=== PATIENT | female | born 1940 | race Caucasian/White ===

== ENCOUNTER → 2017-07-29 16:38 | Outpatient (CLI) | payer SELFPAY ==
[2017-07-29 17:25] LABS: Absolute Lymphocyte Count 2.01 X10^3/ul (0.83-4.51); Absolute Neutrophil Count 5.4 X10^3/uL (2.0-7.7); Basophil# 0.01 X10^3/uL; Basophil% 0.1 % (0-1); Eosinophil# 0.02 X10^3/uL; Eosinophils% 0.3 % (0-5); Hemoglobin 13.1 g/dl (12.0-15.0); Lymphocyte # 2.01 X10^3/ul (4.0); Lymphocyte % 25.3 % (19-41); Mean Corpuscular Hgb 30.4 pg (27.0-32.0); Mean Corpuscular Volume 95.1 fL (81-99); Monocyte# 0.51 X10^3/uL; Monocyte% 6.4 % (0-10); Neutrophil # 5.38 X10^3/uL (2.7-7.7); Neutrophil % 67.8 % (47-70); Platelet Count 283 K/mm3 (150-450); RBC Distribution Width CV 13.7 % (11.6-14.6); RBC Distribution Width SD 46.1 fl (35.1-43.9); Red Blood Count 4.31 M/mm3 (4.2-5.4); White Blood Count 7.9 K/mm3 (4.4-11.0)
[2017-07-29 17:49] LABS: POSITIVE COUNT NO; POSITIVE DIFFERENTIAL NO; POSITIVE MORPHOLOGY NO
[2017-07-29 18:52] LABS: ALB/GLOB Ratio 0.9 RATIO (0.9-2.4); AST(SGOT) 18 U/L (15-37); Alanine Aminotransfer ALT/SGPT 14 U/L (13-56); Albumin, Serum 3.7 g/dL (3.2-5.0); Alkaline Phosphatase 127 U/L (45-117); Anion Gap 9 (5-15); BUN 16 mg/dL (7-18); BUN/Creat Ratio 20.3 RATIO (10-20); Calcium,Total 9.5 mg/dL (8.5-10.1); Chloride 108 mmol/L (98-107); Creatinine, Serum 0.79 mg/dL (0.55-1.02); EST Glomerular Filtration Rate 75 mL/min (>60); Est Glom Filt Rate - Afr Amer 91 mL/min (>60); Globulin 4.1 g/dL (2.2-4.2); Glucose 73 mg/dL (74-106); Potassium 3.2 mmol/L (3.5-5.1); Protein, Total 7.8 g/dL (6.4-8.2); Sodium Level 141 mmol/L (136-145); Thyroid Stim Hormone (TSH) 0.98 uIU/mL (0.358-3.74)
[2017-07-30 08:44] LABS: Vitamin B12 241 pg/mL (211-911); Vitamin D,25 Hydroxy 50.7 ng/mL (29.95-100.01)
[2017-07-31 16:09] LABS: Folate, Hemolysate Test 403.8 ng/mL (Not Estab.); Folate, RBC (Hct) Test 38.4 % (34.0-46.6)
[2017-08-01 01:05] LABS: Rapid Plasmin Reagin (RPR) NONREACTIVE (NONREACTIVE)
[2017-08-01 12:13] LABS: Folates, RBC Test 1052 ng/mL (>498)
[2017-08-02 11:04] LABS: Methylmalonic Acid Bld 174 nmol/L (0-378)
== END ==
PROVIDERS: Family Provider Family Medicine Geriatric Medicine; PCP Family Medicine Geriatric Medicine; Visit Provider Family Medicine Geriatric Medicine
DX: E78.4 Other hyperlipidemia (principal); F05 Delirium due to known physiological condition; E53.8 Deficiency of other specified B group vitamins; E55.9 Vitamin D deficiency, unspecified
CPT/HCPCS: 36415; 80053; 82306; 82607; 82747; 83921; 84443; 85014; 85025; 86592

== ENCOUNTER → 2017-08-11 18:17 | Outpatient (CLI) | payer MEDICARE, SELFPAY | PROVIDERS: Family Provider Family Medicine Geriatric Medicine; PCP Family Medicine Geriatric Medicine; Visit Provider Family Medicine Geriatric Medicine | DX: N39.0 Urinary tract infection, site not specified (principal) | CPT/HCPCS: 87086; 87088 ==

== ENCOUNTER → 2018-01-12 15:08 | Outpatient (CLI) | payer MEDICARE, SELFPAY | PROVIDERS: Family Provider Family Medicine Geriatric Medicine; PCP Family Medicine Geriatric Medicine; Visit Provider Family Medicine Geriatric Medicine | DX: N39.0 Urinary tract infection, site not specified (principal) | CPT/HCPCS: 87086; 87088 ==

== ENCOUNTER → 2018-01-23 12:21 | Outpatient (CLI) | payer MEDICARE, SELFPAY | PROVIDERS: Family Provider Family Medicine Geriatric Medicine; PCP Family Medicine Geriatric Medicine; Visit Provider Family Medicine Geriatric Medicine | DX: N39.0 Urinary tract infection, site not specified (principal) | CPT/HCPCS: 87086; 87088 ==

== ENCOUNTER → 2018-02-25 16:19 | Outpatient (CLI) | payer MEDICARE, SELFPAY ==
[2018-02-25 17:10] LABS: Absolute Lymphocyte Count 2.68 X10^3/ul (0.83-4.51); Absolute Neutrophil Count 5.8 X10^3/uL (2.0-7.7); Basophil# 0.01 X10^3/uL; Basophil% 0.1 % (0-1); Eosinophil# 0.01 X10^3/uL; Eosinophils% 0.1 % (0-5); Hematocrit 41.7 % (37-47); Hemoglobin 13.5 g/dl (12.0-15.0); Lymphocyte # 2.68 X10^3/ul (4.0); Lymphocyte % 29.4 % (19-41); Mean Corp Hgb Conc 32.4 g/gl (32-36); Mean Corpuscular Hgb 33.8 pg (27.0-32.0); Mean Corpuscular Volume 104.3 fL (81-99); Mean Platelet Vol. 12.1 fl (6.2-12.0); Monocyte# 0.63 X10^3/uL; Monocyte% 6.9 % (0-10); Neutrophil # 5.77 X10^3/uL (2.7-7.7); Neutrophil % 63.3 % (47-70); Platelet Count 128 K/mm3 (150-450); RBC Distribution Width CV 13.9 % (11.6-14.6); RBC Distribution Width SD 52.4 fl (35.1-43.9); White Blood Count 9.1 K/mm3 (4.4-11.0)
[2018-02-25 17:33] LABS: POSITIVE COUNT NO; POSITIVE DIFFERENTIAL NO; POSITIVE MORPHOLOGY NO
[2018-02-25 17:54] LABS: Vitamin D,25 Hydroxy 63.3 ng/mL (29.95-100.01)
[2018-02-25 17:57] LABS: ALB/GLOB Ratio 0.7 RATIO (0.9-2.4); AST(SGOT) 20 U/L (15-37); Alanine Aminotransfer ALT/SGPT 21 U/L (13-56); Albumin, Serum 2.9 g/dL (3.2-5.0); Alkaline Phosphatase 83 U/L (45-117); Anion Gap 10 (5-15); BUN 23 mg/dL (7-18); BUN/Creat Ratio 31.2 RATIO (10-20); Calcium,Total 9.4 mg/dL (8.5-10.1); Chloride 106 mmol/L (98-107); Cholesterol 187 mg/dL (200); Creatinine, Serum 0.74 mg/dL (0.55-1.02); EST Glomerular Filtration Rate 81 mL/min (>60); Est Glom Filt Rate - Afr Amer 98 mL/min (>60); Globulin 3.9 g/dL (2.2-4.2); Glucose 88 mg/dL (74-106); High Density Lipoprotein 51 mg/dL; Potassium 3.7 mmol/L (3.5-5.1); Protein, Total 6.8 g/dL (6.4-8.2); Sodium Level 144 mmol/L (136-145); Thyroid Stim Hormone (TSH) 1.86 uIU/mL (0.358-3.74); Triglycerides 81 mg/dL; Very Low Density Lipoprotein 16 mg/dL (5-40)
--- OUTSIDE RECORDS SUMMARY | 2018-04-23 02:34 | XMS RPT_ITS ---
:1940 Author Organization OHIP Care Team Providers Name Role Phone ILSA CHRISTIANSON Attending Unavailable MEGHAN ILSA Primary Care Unavailable Senthil, Parker Chi Attending Unavailable Senhtil, Parker Chi Referring Unavailable Senthil, Parker Chi Primary Care Unavailable Senthil, Parker Chi Attending Unavailable Senthil, Parker Chi Primary Care Unavailable Senthil, Parker Chi Referring Unavailable Senthil, Parker Chi Attending Unavailable Senthil, Parker Chi Primary Care Unavailable Senthil, Parker Chi Attending Unavailable Senthil, Parker Chi Primary Care Unavailable Senthil, Parker Chi Attending Unavailable Senthil, Parker Chi Primary Care Unavailable Senthil, Parker Chi Attending Unavailable Senthil, Parker Chi Primary Care Unavailable PROBLEMS PROBLEMS DATE TYPE CONDITION / CODE ATTENDING STATUS SOURCE 08/12/2017 Unknown N39.0 - Urinary Senthil, Parker Chi Active [place] tract infection, Community site not Hospital specified / Repository N39.0(ICD-10) PROCEDURES PROCEDURES No Procedure Records FoundRESULTS RESULTS CBC W/DIFF, AUTOMATED Collected: 02/25/2018 Status: F Source: ALEJANDRO 4:20 PM [facility] REPOSITORY TYPE CODE TESTS RESULT OUT OF RANGE REFERENCE UNITS LAB L100.1000 4.4-11.0 K/mm3 Normal WBC 9.1 LAB L100.1200 4.2-5.4 M/mm3 Low RBC 4.00 LAB L100.1300 12.0-15.0 g/dl Normal HGB 13.5 LAB L100.1400 37-47 % Normal HCT 41.7 LAB L100.1500 81-99 fL High MCV 104.3 LAB L100.1600 27.0-32.0 pg High MCH 33.8 LAB L100.1700 32-36 g/gl Normal MCHC 32.4 LAB L100.1810 11.6-14.6 % Normal RDW CV 13.9 LAB L100.1820 35.1-43.9 fl High RDW SD 52.4 LAB L100.1900 150-450 K/mm3 Low PLT 128 LAB L100.2000 6.2-12.0 fl High MPV 12.1 LAB L100.2100 47-70 % Normal NEUT% 63.3 LAB L100.2200 19-41 % Normal LY% 29.4 LAB L100.2300 0-10 % Normal MONO% 6.9 LAB L100.2400 0-5 % Normal EO% 0.1 LAB L100.2500 0-1 % Normal BASO% 0.1 LAB L100.2550 0.0-0.9 % Normal IM GRAN % 0.200 Result Comment: IG% - Immature Granulocytes (promyelocytes, myelocytes and metamyelocytes) > 1% indicates that a LEFT SHIFT is Present. LAB L100.2620 2.0-7.7 X10 3/uL Normal Absolute Neut 5.8 LAB L100.2720 0.83-4.51 X10 3/ul Normal Absolute Lymph 2.68 Performed By: #### L100.0100 #### [facility] [place], [address] VITAMIN D,25 HYDROXY Collected: 02/25/2018 Status: F Source: ALEJANDRO 4:20 PM [facility] REPOSITORY TYPE CODE TESTS RESULT OUT OF RANGE REFERENCE UNITS LAB L506.1000 29.95-100.01 ng/mL Normal Vitamin D 63.3 25-OH Result Comment: Vitamin D 25(OH) Status Range Deficiency <20 ng/mL (50nmol/L) Insuffciency 20 - 30 ng/mL (50 - 75 nmol/L) Sufficiency 30 - 100 ng/mL (75 - 250 nmol/L) Toxicity >100 ng/mL (>250 nmol/L) Performed By: #### L506.1000 #### [facility] [address] [place] [place], [place], [address] COMPREHENSIVE METABOLIC Collected: 02/25/2018 Status: F Source: ALEJANDRO [facility] 4:20 PM [facility] REPOSITORY TYPE CODE TESTS RESULT OUT OF RANGE REFERENCE UNITS LAB L501.0100 74-106 mg/dL Normal GLU 88 Result Comment: Please note revised GLUCOSE reference range effective 2017. LAB L501.1000 7-18 mg/dL High BUN 23 LAB L501.1100 0.55-1.02 mg/dL Normal CREAT,SERUM 0.74 Result Comment: The validity of the calculated GFR AND GFRAA in patients over 70 years has not been determined. Clinical correlation is essential. LAB L501.1110 >60 mL/min Normal EST GFR 81 Result Comment: Non- GFR Calc LAB L501.1115 >60 mL/min Normal EST GFR - AA 98 Result Comment: GFR Calc LAB L501.1300 10-20 RATIO High BUN/CRE 31.2 LAB L501.1500 6.4-8.2 g/dL T Normal PROT 6.8 LAB L501.1800 3.2-5.0 g/dL Low ALB 2.9 LAB L501.1950 2.2-4.2 g/dL Normal GLOB 3.9 LAB L501.2000 0.9-2.4 RATIO Low A/G 0.7 LAB L501.2200 8.5-10.1 mg/dL CA Normal 9.4 LAB L501.4100 15-37 U/L Normal AST 20 LAB L501.4305 45-117 U/L Normal ALK P 83 LAB L501.4405 13-56 U/L Normal ALT 21 LAB L501.4600 0.20-1.00 mg/dL T Normal BILI 0.40 LAB L501.5300 136-145 mmol/L NA Normal 144 LAB L501.5600 3.5-5.1 mmol/L K Normal 3.7 LAB L501.5900 98-107 mmol/L CL Normal 106 LAB L501.6100 21.0-32.0 mmol/L Normal CO2 28.0 LAB L501.6200 5-15 Normal GAP 10 Performed By: #### L500.4050, L500.4100, L501.9520 #### [facility] [address] [place], [address] LIPID PROFILE Collected: 02/25/2018 Status: F Source: ROSEMEAD 4:20 PM [facility] REPOSITORY TYPE CODE TESTS RESULT OUT OF RANGE REFERENCE UNITS LAB L501.4900 200 mg/dL Normal CHOL 187 Result Comment: <200 mg/dL Desirable 200-240 mg/dL Borderline >240 mg/dL High Risk LAB L501.5000 mg/dL Normal TRIG 81 Result Comment: The drugs N-Acetylcysteine and Metamizole may falsely depress this assay. Serum Triglycerides Reference Interval Normal <150 mg/dL Borderline high 150 - 199 mg/dL High 200 - 499 mg/dL Very High > or = 500 mg/dL LAB L501.6400 mg/dL Normal HDL 51 Result Comment: The drugs N-Acetylcysteine and Metamizole may falsely depress this assay. Reference Range HDL <40 mg/dL Low HDL Cholesterol HDL >or= 60 mg/dL High HDL Cholesterol LAB L501.6500 0-130 mg/dL Normal LDL 120 LAB L501.6600 5-40 mg/dL Normal VLDL 16 Performed By: #### L500.4050, L500.4100, L501.9520 #### [facility] [address] [place], [address] THYROID STIM HORMONE Collected: 02/25/2018 Status: F Source: ROSEME[place] (TSH) 4:20 PM [facility] REPOSITORY TYPE CODE TESTS RESULT OUT OF RANGE REFERENCE UNITS LAB L501.9520 0.358-3.74 uIU/mL Normal TSH 1.86 Performed By: #### L500.4050, L500.4100, L501.9520 #### [facility] [address] [place], [address] Observed: 01/23/2018 Status: F Source: ALEJANDRO CULTURE, URINE 12:00 AM [facility] REPOSITORY Urine Culture ORGANISM 1: Mixed Gram Positive Organisms Dawson Count >100,000 MIX CULTURE Mixed contaminants. Submit a new specimen if indicated. Performed By: #### M100.0650 #### [facility] [address] [place], [address] Observed: 01/12/2018 Status: F Source: ALEJANDRO CULTURE, URINE 3:09 PM [facility] REPOSITORY Urine Culture Below infection level. 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, [address] Observed: 08/11/2017 Status: F Source: ALEJANDRO CULTURE, URINE 5:15 PM [facility] REPOSITORY Urine Culture ORGANISM 1: Mixed Gram Pos AND Gram Neg Org Dawson Count 50,000-80,000 MIX CULTURE Mixed contaminants. Submit a new specimen if indicated. Performed By: #### M100.0650 #### [facility] [address] [place], [address] CBC W/DIFF, AUTOMATED Collected: 07/29/2017 Status: F Source: ALEJANDRO 4:30 PM [facility] REPOSITORY TYPE CODE TESTS RESULT OUT OF RANGE REFERENCE UNITS LAB L100.1000 4.4-11.0 K/mm3 Normal WBC 7.9 LAB L100.1200 4.2-5.4 M/mm3 Normal RBC 4.31 LAB L100.1300 12.0-15.0 g/dl Normal HGB 13.1 LAB L100.1400 37-47 % Normal HCT 41.0 LAB L100.1500 81-99 fL Normal MCV 95.1 LAB L100.1600 27.0-32.0 pg Normal MCH 30.4 LAB L100.1700 32-36 g/gl Normal MCHC 32.0 LAB L100.1810 11.6-14.6 % Normal RDW CV 13.7 LAB L100.1820 35.1-43.9 fl High RDW SD 46.1 LAB L100.1900 150-450 K/mm3 Normal PLT 283 LAB L100.2000 6.2-12.0 fl Normal MPV 11.0 LAB L100.2100 47-70 % Normal NEUT% 67.8 LAB L100.2200 19-41 % Normal LY% 25.3 LAB L100.2300 0-10 % Normal MONO% 6.4 LAB L100.2400 0-5 % Normal EO% 0.3 LAB L100.2500 0-1 % Normal BASO% 0.1 LAB L100.2550 0.0-0.9 % Normal IM GRAN % 0.100 Result Comment: IG% - Immature Granulocytes (promyelocytes, myelocytes and metamyelocytes) > 1% indicates that a LEFT SHIFT is Present. LAB L100.2620 2.0-7.7 X10 3/uL Normal Absolute Neut 5.4 LAB L100.2720 0.83-4.51 X10 3/ul Normal Absolute Lymph 2.01 Performed By: #### L100.0100 #### [facility] [address] [place], [address] COMPREHENSIVE METABOLIC Collected: 07/29/2017 Status: F Source: [facility] 4:30 PM [facility] REPOSITORY TYPE CODE TESTS RESULT OUT OF RANGE REFERENCE UNITS LAB L501.0100 74-106 mg/dL Low GLU 73 Result Comment: Please note revised GLUCOSE reference range effective 2017. LAB L501.1000 7-18 mg/dL Normal BUN 16 LAB L501.1100 0.55-1.02 mg/dL Normal CREAT,SERUM 0.79 Result Comment: The validity of the calculated GFR AND GFRAA in patients over 70 years has not been determined. Clinical correlation is essential. LAB L501.1110 >60 mL/min Normal EST GFR 75 Result Comment: Non- GFR Calc LAB L501.1115 >60 mL/min Normal EST GFR - AA 91 Result Comment: GFR Calc LAB L501.1300 10-20 RATIO High BUN/CRE 20.3 LAB L501.1500 6.4-8.2 g/dL T Normal PROT 7.8 LAB L501.1800 3.2-5.0 g/dL Normal ALB 3.7 LAB L501.1950 2.2-4.2 g/dL Normal GLOB 4.1 LAB L501.2000 0.9-2.4 RATIO Normal A/G 0.9 LAB L501.2200 8.5-10.1 mg/dL CA Normal 9.5 LAB L501.4100 15-37 U/L Normal AST 18 LAB L501.4305 45-117 U/L High ALK P 127 LAB L501.4405 13-56 U/L Normal ALT 14 LAB L501.4600 0.20-1.00 mg/dL T Normal BILI 0.40 LAB L501.5300 136-145 mmol/L NA Normal 141 LAB L501.5600 3.5-5.1 mmol/L Low K 3.2 LAB L501.5900 98-107 mmol/L High CL 108 LAB L501.6100 21.0-32.0 mmol/L Normal CO2 24.0 LAB L501.6200 5-15 Normal GAP 9 Performed By: #### L500.4050, L501.9520 #### [facility] [address] [facility] [place], [address] THYROID STIM HORMONE Collected: 07/29/2017 Status: F Source: ALEJANDRO (TSH) 4:30 PM [facility] REPOSITORY TYPE CODE TESTS RESULT OUT OF RANGE REFERENCE UNITS LAB L501.9520 0.358-3.74 uIU/mL Normal TSH 0.98 Performed By: #### L500.4050, L501.9520 #### [facility] [address] [place], [address] VITAMIN B12 Collected: 07/29/2017 Status: F Source: ALEJANDRO 4:30 PM [facility] REPOSITORY TYPE CODE TESTS RESULT OUT OF RANGE REFERENCE UNITS LAB L503.0105 211-911 pg/mL Normal Vitamin B12 241 Performed By: #### L503.0105, L506.1000 #### [facility] [address] [place], [address] VITAMIN D,25 HYDROXY Collected: 07/29/2017 Status: F Source: ALEJANDRO 4:30 PM [facility] REPOSITORY TYPE CODE TESTS RESULT OUT OF RANGE REFERENCE UNITS LAB L506.1000 29.95-100.01 ng/mL Normal Vitamin D 50.7 25-OH Result Comment: Vitamin D 25(OH) Status Range Deficiency <20 ng/mL (50nmol/L) Insuffciency 20 - 30 ng/mL (50 - 75 nmol/L) Sufficiency 30 - 100 ng/mL (75 - 250 nmol/L) Toxicity >100 ng/mL (>250 nmol/L) Performed By: #### L503.0105, L506.1000 #### [facility] [address] [place], [address] RAPID PLASMIN REAGIN Collected: 07/29/2017 Status: F Source: ALEJANDRO (RPR) 4:30 PM [facility] REPOSITORY TYPE CODE TESTS RESULT OUT OF REFERENCE UNITS RANGE LAB L700.5000 NONREACTIVE NONREACTIVE Normal RPR Performed By: #### L700.5000 #### [facility] [address] [place], [place], [address] FOLATES, RBC Collected: 07/29/2017 Status: F Source: ALEJANDRO 4:30 PM [facility] REPOSITORY TYPE CODE TESTS RESULT OUT OF RANGE REFERENCE UNITS LAB L3100.1735 Not Estab. ng/mL Normal 403.8 FOL,HEMOLYSA TE LAB L3100.1740 34.0-46.6 % Normal 38.4 FOLR,HEMATOC RIT LAB L3100.1745 >498 ng/mL Normal FOLATE, 1052 RBC Result Comment: Performed at: - [facility] [address] [id number] [employer] Stabilizer Operator: Marshal Maldonado PhD, Phone: [phone] Performed By: #### L3100.1725 #### [facility] (refer to report for specific site) refer to report for address and phone number METHYLMALONIC ACID BLD Collected: 07/29/2017 Status: F Source: ALEJANDRO 4:30 PM [facility] REPOSITORY Order Comment: ADD ON TO YESTERDAYS TESTING PER TYPE CODE TESTS RESULT OUT OF RANGE REFERENCE UNITS LAB L7400.3000 0-378 nmol/L Normal METHYLM 174 [id number] Result Comment: This test was developed and its performance characteristics determined by [facility]. It has not been cleared or approved by the Food and Drug Administration. Performed at: [facility] [address] [id number] [employer] Stabil[employer] Operator: Roland Aquino MD, Phone: [phone] Performed By: #### L7400.3000 #### [facility] (refer to report for specific site) refer to report for address and phone number BD BONE DENSITY DEXA Observed: 07/28/2017 Status: F Source: [place] AXIAL SKELETON 2:00 PM [facility] REPOSITORY ORIGINAL BONE DENSITOMETRY CLINICAL STATEMENT: SCREENING COMPARISON: None T. Score Lumbar Spine L1-L4: -3.4 BMD (g/cm2) Lumbar Spine L1-L4: 0.678 T. Score Right Femoral Neck: -0.5 BMD (g/cm2) Right Femoral Neck: 0.79 T. Score Right Hip: -2.4 BMD (g/cm2) Right Hip: 0.653 CONCLUSION: The patient is considered osteoporotic based on the lumbar spine which has a T score of -3.4. *By the World Health Organization standards: Osteopenia is present when the bone mineral density is greater than 1 standard deviation (SD) but less than 2.5 SDs below a young normal sex matched populati on. Osteoporosis is present when the bone mineral density is equal to or greater than 2.5 SDs below a young normal sex matched population. Interpreted By: Farrukh Chavira MD Preliminary Report By: Farrukh Chavira MD Electronically Signed By: Farrukh Chavira MD Dictated Date: 07/28/2017 2:35:05 PM Prelim Date: 07/28/2017 2:35:05 PM Sign Date: 07/28/2017 2:41:57 PM ALLERGIES ALLERGIES No Allergies Records FoundENCOUNTERS ENCOUNTERS ADMIT/DISCHARGE ACCOUNT NUMBER ADMITTING ENCOUNTER LOCATION SOURCE CLASS 02/25/2018 [id number] [facility] ding:POLAB3 Repository 01/23/2018 [id number] [facility] ding:LABSPEC Repository 01/12/2018 [id number] Ambulatory [facility] ding:POLAB3 Repository 08/12/2017 [id number] [facility] ding:LAB.FUT Repository URE 08/11/2017 [id number] [facility] ding:LABSPEC Repository 07/29/2017 [id number] [facility] ding:LABSPEC Repository 07/28/2017/07/29/19 [id number] Ambulatory [address] ding:RAD Foundation Repository PAYERS PAYERS ENCOUNTER GUARANTOR PAYER SUBSCRIBER SOURCE 02/25/2018 GAURI Primary GAURI [id number] Insurance:HUMANA ZACHARIAHTDOB: Community [employer] PPOPolicy [id number] Number: [place]ository [place] [address]Hsz: [id number] Date:1895-19-24XI [address]OX () [address] [place] [phone]: 02/25/2018 Secondary NOT GIVENUNK [place] Insurance:SELF PAY [facility] Number: Effective Repository Date:2018-02-25 01/23/2018 GAURI Primary GAURI [place] [id number] Insurance:HUMANA ZACHARIAHTDOB: Community [employer] PPOPolicy [id number]. [facility], Number: Repository [place] [id number]: [id number] Date:1497-97-98ER BOX () [address] [place] [phone]: 01/23/2018 Secondary NOT GIVENUNK [place] Insurance:SELF PAY [facility] Number: Effective Repository Date:2018-01-23 01/12/2018 GAURI Primary GAURI [place] [id number] Insurance:HUMANA BRILLHARTDOB: Community [employer] PPOPolicy [id number]. [facility], Number: Repository [place] [address]Kjx: [id number] Date:8812-75-78QE BOX () [address] [place] [phone]: 01/12/2018 Secondary NOT GIVENUNK [place] Insurance:SELF PAY [facility] Number: Effective Repository Date:2018-01-12 08/12/2017 GAURI Primary GAURI Alejandro [id number] Insurance:HUMANA BRILLHARTDOB: Community [employer] PPOPolicy [id number]. Joseph's [facility], Number: Repository [place] [address]Pgf: [id number] [phone] Date:6001-75-61MF [address] () [address] [place] [phone]: 08/12/2017 Secondary NOT GIVENUNK [place] Insurance:SELF PAY [facility] Number: Effective Repository Date:2017-08-12 08/11/2017 GAURI Primary GAURI Alejandro [id number] Insurance:HUMANA BRPANDATDOB: Community [employer] PPOPolicy 1942[facility], Number: Repository [place] [id number]: [id number] [phone] Date:5515-46-57IO [address] () [address] [place] [phone]: 08/11/2017 Secondary NOT GIVENUNK [place] Insurance:SELF PAY [facility] Number: Effective Repository Date:2017-08-11 07/29/2017 GAURI Primary NOT GIVENUNK [place] [id number] Insurance:SELF PAY [facility], Number: Effective Repository [place] [address]Wqs: Date:2017-07-29 (HP) 07/28/2017 GAURI [facility] GAURI [facility]:HUMANA SANDEEP FRITZDOB: [facility] [id number] CHOICE MEDICAREPolicy [id number] Repository [address] Number: [address], [id number] [place] [address]Yzb: Date:2017-05-12 [place] [address]Iuf: [id number] () Name:OLAYINKA Crouch ()Tel: [phone], [place] [phone] () [phone]:
== END ==
PROVIDERS: Family Provider Family Medicine Geriatric Medicine; PCP Family Medicine Geriatric Medicine; Visit Provider Family Medicine Geriatric Medicine
DX: R53.83 Other fatigue (principal); I10 Essential (primary) hypertension; E55.9 Vitamin D deficiency, unspecified
CPT/HCPCS: 36415; 80053; 80061; 82306; 84443; 85025

== ENCOUNTER 2018-03-28 08:40 | Inpatient (IN) | payer MEDICARE, SELFPAY ==
[2018-03-28] VITALS (22 sets, daily range): BP systolic 74–189; BP diastolic 44–88; PULSE 68–115; RESP 14–30; TEMP 36.8–37.2; O2SAT 80–98; BMI 22.2; BMI 21.6
--- NOTE | 2018-03-28 08:52 | CT_ITS ---
STUDY: CT ABDOMEN AND PELVIS WITHOUT CONTRAST REASON FOR EXAM: Female, 78 years old. Cough/congestion/abd pain. Prev hysterectomy and lt hip replacement. RADIATION DOSAGE (If Supplied By Facility): CTDIvol = ( 9.0 ) mGy, DLP = ( 755.74 ) mGycm TECHNIQUE: Transaxial images were obtained from the dome of the diaphragm to the symphysis pubis without oral contrast, and without intravenous contrast. Sagittal and coronal images were reconstructed. Individualized dose optimization techniques were used for this CT. COMPARISON: None. FINDINGS: The visualized lung bases are unremarkable. The visualized portions of the heart are within normal limits. Normal liver. Normal gallbladder and extrahepatic biliary system. Normal spleen. Normal pancreas. Normal bilateral adrenal glands. Normal right kidney. There is a duplicated collecting system on the left There is a small hiatal hernia. Normal small intestine. Normal colon. There is non-visualization of the appendix. There is diffuse atherosclerotic calcification of the abdominal aorta, without a demonstrated aneurysm. Normal inferior vena cava. Normal retroperitoneum. Normal urinary bladder. Normal abdominal wall. There are diffuse degenerative changes of the visualized lumbar spine. CT/Abdomen/Pelvis without Cont IMPRESSION: No acute intra-abdominal or intrapelvic abnormality. Moderate aortoiliac atherosclerosis. Electronically Signed: Roseline Gaming MD at 10:39 EST Tel , Service support ,
--- NOTE | 2018-03-28 08:52 | CT_ITS ---
STUDY: CT CHEST WITHOUT CONTRAST REASON FOR EXAM: Female, 78 years old. Cough/congestion/abd pain. Prev hysterectomy and lt hip replacement. RADIATION DOSAGE (If Supplied By Facility): CTDIvol = ( 9.0 ) mGy, DLP = ( 755.74 ) mGycm TECHNIQUE: Transaxial imaging was performed without the administration of intravenous contrast material. Individualized dose optimization techniques were used for this CT. COMPARISON: None. FINDINGS: There are mild emphysematous changes of the lungs with emphysematous blebs. There is no demonstrated pleural abnormality. Normal heart and pericardium. There are calcifications of the coronary arteries. Normal mediastinum. Normal hilar regions. There is atherosclerotic calcification of the aortic arch with tortuosity and elongation of the aortic arch and descending thoracic aorta. There are multi-level degenerative changes of the thoracic spine. CT/Chest without Contrast IMPRESSION: No acute intrathoracic abnormality. Electronically Signed: Roseline Gaming MD at 11:26 EST Tel , Service support ,
--- NOTE | 2018-03-28 08:55 | ED.DCSUM_ITS ---
- ER Visit Summary Date of Service: 03/28/18 Chief Complaint: Cough, congestion History of Present Illness: The patient is a 78 F who presents with cough and congestion. Family states that it just started this morning. They saw her last night and she had a slight cough but it is increased today. She has had increased sputum production. She feels like she cannot swallow it. She took a generic thing this morning but the family did not know what it was. They did not check her temperature. She has a history of dementia so history from her is limited. Physical Examination: Vital signs reviewed. Patient is moaning has a lot of upper airway secretions. She is not choking. HEENT exam is otherwise unremarkable. Heart is regular rate and rhythm. Lungs are clear bilaterally. Abdomen is soft with left lower quadrant tenderness. There is voluntary guarding. Skin exam is normal. She is alert to self only which according to family is baseline. Her strength and sensation is equal otherwise. Test Results: EKG is sinus rhythm with a rate of 84. Nonspecific ST and T wave changes noted. White blood cell count 12.4. Lactate 1.8. Troponin normal. CT of the chest abdomen and pelvis reveals nothing acute Emergency Department Course and Treatment: The patient's pulse ox was normal on room air. After her imaging studies was performed, the patient had an episode of hypotension and low pulse ox. Her pulse ox was in the 80s despite being on nasal cannula oxygen. She was placed on a nonrebreather and her pulse ox came up to the 90s. Her blood pressure went to 70s over 30s and after some IV fluids it came up to hypertensive in the 170 systolic range. She had a lot of upper airway secretions and my concern is that she may have aspirated and it caused a vagal reaction. I will start her on Unasyn. And she will be admitted to the hospital Treatment Plan: [] Disposition: Admit Impression: Aspiration pneumonia This note was generated with [employer] dictation software. It may contain incorrect words, spelling, and punctuation that were not noted in review of the chart prior to signing ED Disposition - Plan for ED Patient: Chief Complaint: Cough Referrals: Parker Ndiaye Chi, MD [Primary Care Provider] -
[2018-03-28] MEDS: Albuterol 2.5 MG/3 ML VIAL.NEB. INHALATION (09:26)
--- NOTE | 2018-03-28 09:26 | ED.RN ---
PT NOT FOLLOWING COMMANDS OR ANSWERING QUESTIONS.
[2018-03-28 09:27] LABS: Basophil# 0.01 X10^3/uL; Basophil% 0.1 % (0-1); Eosinophil# 0.01 X10^3/uL; Eosinophils% 0.1 % (0-5); Hematocrit 42.4 % (37-47); Hemoglobin 13.8 g/dl (12.0-15.0); Lymphocyte % 12.1 % (19-41); Mean Corp Hgb Conc 32.5 g/gl (32-36); Mean Corpuscular Hgb 34.6 pg (27.0-32.0); Mean Corpuscular Volume 106.3 fL (81-99); Monocyte# 0.84 X10^3/uL; Monocyte% 6.8 % (0-10); Neutrophil # 10.02 X10^3/uL (2.7-7.7); Neutrophil % 80.6 % (47-70); Platelet Count 179 K/mm3 (150-450); RBC Distribution Width CV 14.9 % (11.6-14.6); RBC Distribution Width SD 57.9 fl (35.1-43.9); Red Blood Count 3.99 M/mm3 (4.2-5.4); White Blood Count 12.4 K/mm3 (4.4-11.0)
[2018-03-28 09:29] LABS: POSITIVE COUNT NO; POSITIVE DIFFERENTIAL NO; POSITIVE MORPHOLOGY NO
[2018-03-28 09:52] LABS: ALB/GLOB Ratio 0.8 RATIO (0.9-2.4); AST(SGOT) 16 U/L (15-37); Alanine Aminotransfer ALT/SGPT 12 U/L (13-56); Albumin, Serum 3.1 g/dL (3.2-5.0); Alkaline Phosphatase 69 U/L (45-117); Anion Gap 8 (5-15); BUN 17 mg/dL (7-18); BUN/Creat Ratio 23.8 RATIO (10-20); Calcium,Total 8.9 mg/dL (8.5-10.1); Chloride 105 mmol/L (98-107); Creatinine, Serum 0.72 mg/dL (0.55-1.02); EST Glomerular Filtration Rate 84 mL/min (>60); Est Glom Filt Rate - Afr Amer 102 mL/min (>60); Estimated Creatinine Clearance 34.38 ml/min; Globulin 3.9 g/dL (2.2-4.2); Glucose 109 mg/dL (74-106); Potassium 4.1 mmol/L (3.5-5.1); Sodium Level 140 mmol/L (136-145)
[2018-03-28] MEDS: 0.9% Normal Saline 1,000 ML 999 ML IV (11:20)
--- NOTE | 2018-03-28 11:29 | EKG12_ITS ---
Test Reason : SOB Blood Pressure : / mmHG Vent. Rate : 084 BPM Atrial Rate : 084 BPM P-R Int : 146 ms QRS Dur : 076 ms QT Int : 402 ms P-R-T Axes : 073 -14 039 degrees QTc Int : 475 ms Normal sinus rhythm Septal infarct , age undetermined Abnormal ECG Confirmed by COURTNEY FLORES, CHRIS ([id number]), video editor YEVGENIY HIDALGO ([id number]) on 03/30/2018 12:36:35 PM Referred By: FRANCO Confirmed By:CHRIS VALDEZ MD
--- NOTE | 2018-03-28 11:35 | ED.RN ---
1115 - MD NOTIFIED OF VITALS. MD AT BEDSIDE.
[2018-03-28 11:55] LABS: Allen Test POS; Base Excess -1 mmol/L (-2 to +2); Bicarbonate 24.3 mmol/L (22-26); Blood Gas Specimen Type ART; O2 Delivery Device NRB Mask; PO2 211 mmHG (75-100); SITE L Radial; SO2 100 % (95-99); Time Given 1145; Total Carbon Dioxide 26 mmol/L; pCO2 45.3 mmHg (35-45); pH 7.34 (7.35-7.45)
[2018-03-28] MEDS: Ipratropium/Albuterol Sulfate 3 ML AMPUL.NEB INHALATION ×2 (12:08→19:25)
[2018-03-28 12:15] LABS: Lactic Acid 1.8 mmol/L (0.4-2.0)
--- NOTE | 2018-03-28 14:46 | PCM.HP.STD ---
Problem List (1) Acute respiratory failure with hypoxia Status: Acute (2) Aspiration pneumonia Status: Acute (3) Sepsis Status: Acute History of Present Illness Date of Admission: 03/28/18 Chief Complaint: shortness of breath. The patient is a 78 year old F presents with complaints of coughing up yellow phlegm and just not herself. Patient was brought to the emergency room condition. Patient was initially slightly tachypneic with a respiratory rate of 24 but was 96% on room air. Patient underwent a chest CT as well as abdominal CT that were unremarkable. Some point after the CAT scans, patient was coughing and then became acutely hypoxic dropping down to 80% on 6 L nasal cannula. Patient was changed over to Venturi mask and then a nonrebreather her sats have remained stable. Patient is confused and just grunting so was unable to provide any history. History is obtained through the emergency room physician as well as the patient's son caregiver, who are at bedside. They state the patient at baseline is confused but has good days and bad days. Based on the patient's bad days involve her running off and talking about her though he were alive when he has been . Patient also has times where she does not recognize her own sons. [] Past Medical History Medical History: Medical History (Last Updated 03/28/18 @ 14:50 by Que Wallace DO) Depression F32.9 Allergies No Known Allergies Allergy (Verified 03/28/18 08:41) Home Medications: Ambulatory Orders Medication Instructions Recorded Divalproex Sodium [Depakote ER] 1,000 mg PO QHS 03/28/18 Divalproex Sodium [Depakote ER] 500 mg PO BREAKFAST 03/28/18 Doxepin HCl 25 mg PO PRN PRN 03/28/18 Nuedexta 1 tab PO DAILY 03/28/18 Potassium Chl Soln 1 dose PO DAILY 03/28/18 Valproic Acid (As Sodium Salt) 10 ml PO DAILY 03/28/18 [Valproic Acid] Vilazodone Hydrochloride [Viibryd] 1 tab PO DAILY 03/28/18 Psychiatric History: Depression Lives: Alone, - Smoking Status: Never smoker Review of Systems Comment: Unable to obtain review of systems nor family history for the patient given her confusion. VTE Information - Inpt Only VTE Present on Admission: No VTE Pharm Prophylaxis ordered?: Yes Patient Problems: Active and Suspected Problems Acute respiratory failure with hypoxia (Acute) Aspiration pneumonia (Acute) Sepsis (Acute) - Physical Exam General: Confused, - - grunting. afebrile. HEENT: Atraumatic, Normocephalic Oral: Moist Mucosa, No Gingival or Mucosal Lesions/ Ulcerations Neck: No Nodes, Thyroid Normal Size and Texture Lungs: Diminished, - - coarse breath sounds bilaterally. Cardiovascular: Regular rate, Regular Rhythm, Normal S1, Normal S2, No murmurs Abdomen: Bowel Sounds Present, Soft, Non-Distended, No Hepato-splenomegaly, - - Slice my hand away during so abdominal examination limited. Extremities: No edema, No Calf Tenderness Skin: No rashes, No breakdown Musculoskeletal: No Tenderness to Palpation of Joints or Extremities, No Muscle Wasting Neurological: Coordination normal, - - no clonus Psych/Mental Status: Agitated, Anxious Vital Signs Temp Pulse Resp BP Pulse Ox 37.1 C 100 24 H 155/79 H 98 03/28/18 14:10 03/28/18 14:10 03/28/18 14:10 03/28/18 14:10 03/28/18 14:10 Oxygen Flow Rate (L/min) 12 Oxygen Delivery Method Non-Rebreather Weight: 51.71 kg Body Mass Index (BMI) 22.2 Laboratory Tests Past 24 Hrs 03/28/18 03/28/18 03/28/18 09:10 09:10 09:10 WBC 12.4 H RBC 3.99 L Hgb 13.8 Hct 42.4 MCV 106.3 H MCH 34.6 H MCHC 32.5 RDW 14.9 H RDW Differential 57.9 H Plt Count 179 MPV 11.0 Immature Gran % (Auto) 0.300 Neut % (Auto) 80.6 H Lymph % (Auto) 12.1 L Mccreary % (Auto) 6.8 Eos % (Auto) 0.1 Baso % (Auto) 0.1 Absolute Neuts (auto) 10.0 H Absolute Lymphs (auto) 1.50 Total Counted Not Reportable Specimen Type Sample Site pH Bicarbonate Actual POC Total CO2 Base Excess O2 Saturation ABG pCO2 ABG pO2 Rik Test O2 Delivery Device Liter Flow Blood Gas Notified Whom Blood Gas Notified Time Sodium 140 Potassium 4.1 Chloride 105 Carbon Dioxide 27.0 Anion Gap 8 BUN 17 Creatinine 0.72 Estim Creat Clear Calc 34.38 Est GFR (MDRD) Af Amer 102 Est GFR (MDRD) Non-Af 84 BUN/Creatinine Ratio 23.8 H Glucose 109 H Lactic Acid Calcium 8.9 Total Bilirubin 0.60 AST 16 ALT 12 L Alkaline Phosphatase 69 Troponin I < 0.015 Total Protein 7.0 Albumin 3.1 L Globulin 3.9 Albumin/Globulin Ratio 0.8 L 03/28/18 03/28/18 09:10 11:49 WBC RBC Hgb Hct MCV MCH MCHC RDW RDW Differential Plt Count MPV Immature Gran % (Auto) Neut % (Auto) Lymph % (Auto) Mccreary % (Auto) Eos % (Auto) Baso % (Auto) Absolute Neuts (auto) Absolute Lymphs (auto) Total Counted Specimen Type ART Sample Site L Radial pH 7.34 L Bicarbonate Actual 24.3 POC Total CO2 26 Base Excess -1 O2 Saturation 100 H ABG pCO2 45.3 H ABG pO2 211 H Rik Test POS O2 Delivery Device NRB Mask Liter Flow 15.0 Blood Gas Notified Whom ED MD Blood Gas Notified Time 1145 Sodium Potassium Chloride Carbon Dioxide Anion Gap BUN Creatinine Estim Creat Clear Calc Est GFR (MDRD) Af Amer Est GFR (MDRD) Non-Af BUN/Creatinine Ratio Glucose Lactic Acid 1.8 Calcium Total Bilirubin AST ALT Alkaline Phosphatase Troponin I Total Protein Albumin Globulin Albumin/Globulin Ratio Assessment/Plan All Active Problems Acute respiratory failure with hypoxia (Acute) Aspiration pneumonia (Acute) Sepsis (Acute) 1. Acute hypoxic respiratory failure Patient's pulse ox dropped down to 80% at one point and the patient was notably tachypneic which she still remains to be. Feel the etiology is likely a recent pneumonia this patient was fine and then was coughing up some phlegm and then had suctioned some phlegm. Plan is for the patient to be on pulmonary toilet with Unasyn and bronchodilators. 2. Suspected aspiration pneumonia Unasyn Treatment as above Check urinary antigens for strep to coccus and Legionella Speech therapy to evaluate and treat. Patient will be n.p.o. until further cleared by speech therapy 3. Sepsis Not initially present on admission but did develop subsequently when patient had the aspiration event Supportive management Follow-up cultures 4. Suspected dementia Patient diagnosed with depression and is on medications for depression plus pseudobulbar affect Patient has had some extent of workup per the family But given patient's waxing and waning levels of consciousness and not recognizing immediate family members is concerning for dementia Recommend outpatient geriatric evaluation for dementia 5. DVT prophylaxis with Lovenox 6. Advanced care planning: Discussed with patient's son, is not the power of real estate attorney, and states that there is been no formal discussion about CODE STATUS. I did discuss with him briefly about DNR CCA and CPR, intubation and PEG tube's. Code Visit Inpatient E&M: [id number] Init Hosp L3
--- NOTE | 2018-03-28 14:50 | HP.PCM_ITS ---
Problem List (1) Acute respiratory failure with hypoxia Status: Acute (2) Aspiration pneumonia Status: Acute (3) Sepsis Status: Acute History of Present Illness Date of Admission: 03/28/18 Chief Complaint: shortness of breath. The patient is a 78 year old F presents with complaints of coughing up yellow phlegm and just not herself. Patient was brought to the emergency room condition. Patient was initially slightly tachypneic with a respiratory rate of 24 but was 96% on room air. Patient underwent a chest CT as well as abdominal CT that were unremarkable. Some point after the CAT scans, patient was coughing and then became acutely hypoxic dropping down to 80% on 6 L nasal cannula. Patient was changed over to Venturi mask and then a nonrebreather her sats have remained stable. Patient is confused and just grunting so was unable to provide any history. History is obtained through the emergency room physician as well as the patient's son caregiver, who are at bedside. They state the patient at baseline is confused but has good days and bad days. Based on the patient's bad days involve her running off and talking about her though he were alive when he has been . Patient also has times where she does not recognize her own sons. [] Past Medical History Medical History: Medical History (Last Updated 03/28/18 @ 14:50 by Que Wallace DO) Depression F32.9 Allergies No Known Allergies Allergy (Verified 03/28/18 08:41) Home Medications: Ambulatory Orders Medication Instructions Recorded Divalproex Sodium [Depakote ER] 1,000 mg PO QHS 03/28/18 Divalproex Sodium [Depakote ER] 500 mg PO BREAKFAST 03/28/18 Doxepin HCl 25 mg PO PRN PRN 03/28/18 Nuedexta 1 tab PO DAILY 03/28/18 Potassium Chl Soln 1 dose PO DAILY 03/28/18 Valproic Acid (As Sodium Salt) 10 ml PO DAILY 03/28/18 [Valproic Acid] Vilazodone Hydrochloride [Viibryd] 1 tab PO DAILY 03/28/18 Psychiatric History: Depression Lives: Alone, - Smoking Status: Never smoker Review of Systems Comment: Unable to obtain review of systems nor family history for the patient given her confusion. VTE Information - Inpt Only VTE Present on Admission: No VTE Pharm Prophylaxis ordered?: Yes Patient Problems: Active and Suspected Problems Acute respiratory failure with hypoxia (Acute) Aspiration pneumonia (Acute) Sepsis (Acute) - Physical Exam General: Confused, - - grunting. afebrile. HEENT: Atraumatic, Normocephalic Oral: Moist Mucosa, No Gingival or Mucosal Lesions/ Ulcerations Neck: No Nodes, Thyroid Normal Size and Texture Lungs: Diminished, - - coarse breath sounds bilaterally. Cardiovascular: Regular rate, Regular Rhythm, Normal S1, Normal S2, No murmurs Abdomen: Bowel Sounds Present, Soft, Non-Distended, No Hepato-splenomegaly, - - Slice my hand away during so abdominal examination limited. Extremities: No edema, No Calf Tenderness Skin: No rashes, No breakdown Musculoskeletal: No Tenderness to Palpation of Joints or Extremities, No Muscle Wasting Neurological: Coordination normal, - - no clonus Psych/Mental Status: Agitated, Anxious Vital Signs Temp Pulse Resp BP Pulse Ox 37.1 C 100 24 H 155/79 H 98 03/28/18 14:10 03/28/18 14:10 03/28/18 14:10 03/28/18 14:10 03/28/18 14:10 Oxygen Flow Rate (L/min) 12 Oxygen Delivery Method Non-Rebreather Weight: 51.71 kg Body Mass Index (BMI) 22.2 Laboratory Tests Past 24 Hrs 03/28/18 03/28/18 03/28/18 09:10 09:10 09:10 WBC 12.4 H RBC 3.99 L Hgb 13.8 Hct 42.4 MCV 106.3 H MCH 34.6 H MCHC 32.5 RDW 14.9 H RDW Differential 57.9 H Plt Count 179 MPV 11.0 Immature Gran % (Auto) 0.300 Neut % (Auto) 80.6 H Lymph % (Auto) 12.1 L [place] % (Auto) 6.8 Eos % (Auto) 0.1 Baso % (Auto) 0.1 Absolute Neuts (auto) 10.0 H Absolute Lymphs (auto) 1.50 Total Counted Not Reportable Specimen Type Sample Site pH Bicarbonate Actual POC Total CO2 Base Excess O2 Saturation ABG pCO2 ABG pO2 Rik Test O2 Delivery Device Liter Flow Blood Gas Notified Whom Blood Gas Notified Time Sodium 140 Potassium 4.1 Chloride 105 Carbon Dioxide 27.0 Anion Gap 8 BUN 17 Creatinine 0.72 Estim Creat Clear Calc 34.38 Est GFR (MDRD) Af Amer 102 Est GFR (MDRD) Non-Af 84 BUN/Creatinine Ratio 23.8 H Glucose 109 H Lactic Acid Calcium 8.9 Total Bilirubin 0.60 AST 16 ALT 12 L Alkaline Phosphatase 69 Troponin I < 0.015 Total Protein 7.0 Albumin 3.1 L Globulin 3.9 Albumin/Globulin Ratio 0.8 L 03/28/18 03/28/18 09:10 11:49 WBC RBC Hgb Hct MCV MCH MCHC RDW RDW Differential Plt Count MPV Immature Gran % (Auto) Neut % (Auto) Lymph % (Auto) Jessamine % (Auto) Eos % (Auto) Baso % (Auto) Absolute Neuts (auto) Absolute Lymphs (auto) Total Counted Specimen Type ART Sample Site L Radial pH 7.34 L Bicarbonate Actual 24.3 POC Total CO2 26 Base Excess -1 O2 Saturation 100 H ABG pCO2 45.3 H ABG pO2 211 H Rik Test POS O2 Delivery Device NRB Mask Liter Flow 15.0 Blood Gas Notified Whom ED MD Blood Gas Notified Time 1145 Sodium Potassium Chloride Carbon Dioxide Anion Gap BUN Creatinine Estim Creat Clear Calc Est GFR (MDRD) Af Amer Est GFR (MDRD) Non-Af BUN/Creatinine Ratio Glucose Lactic Acid 1.8 Calcium Total Bilirubin AST ALT Alkaline Phosphatase Troponin I Total Protein Albumin Globulin Albumin/Globulin Ratio Assessment/Plan All Active Problems Acute respiratory failure with hypoxia (Acute) Aspiration pneumonia (Acute) Sepsis (Acute) 1. Acute hypoxic respiratory failure * Patient's pulse ox dropped down to 80% at one point and the patient was notably tachypneic which she still remains to be. * Feel the etiology is likely a recent pneumonia this patient was fine and then was coughing up some phlegm and then had suctioned some phlegm. * Plan is for the patient to be on pulmonary toilet with Unasyn and bronchodilators. 2. Suspected aspiration pneumonia * Unasyn * Treatment as above * Check urinary antigens for strep to coccus and Legionella * Speech therapy to evaluate and treat. Patient will be n.p.o. until further cleared by speech therapy 3. Sepsis * Not initially present on admission but did develop subsequently when patient had the aspiration event * Supportive management * Follow-up cultures 4. Suspected dementia * Patient diagnosed with depression and is on medications for depression plus pseudobulbar affect * Patient has had some extent of workup per the family * But given patient's waxing and waning levels of consciousness and not recognizing immediate family members is concerning for dementia * Recommend outpatient geriatric evaluation for dementia 5. DVT prophylaxis with Lovenox 6. Advanced care planning: Discussed with patient's son, is not the power of immigration attorney, and states that there is been no formal discussion about CODE STATUS. I did discuss with him briefly about DNR CCA and CPR, intubation and PEG tube's . Code Visit Inpatient E&M: [id number] Init Hosp L3
--- NOTE | 2018-03-28 15:24 | RAD_ITS ---
STUDY: X-RAY CHEST REASON FOR EXAM: Female, 78 years old. Shortness of breath TECHNIQUE: PA and lateral views of the chest. COMPARISON: 03/28/2018 9:[address] chest FINDINGS: There is a patchy opacity in the right lung base. This is new since the prior study. There is no demonstrated pleural abnormality. Normal size heart. Normal mediastinum and jose. Normal visualized pulmonary arteries. There is atherosclerotic tortuosity of the aortic arch and descending thoracic aorta. Normal visualized thoracic spine. Normal visualized ribs, clavicles, and shoulders. There is no demonstrated abnormality of the visualized soft tissue structures of the upper abdomen. RAD/Chest PA and Lateral IMPRESSION: Patchy right lung base infiltrate new since prior study given the rapid onset since March 28, 2018 9:59 AM consider possible aspiration pneumonia and/or atelectasis or mucus plugging. N.B. : The above information has been verbally conveyed by Jennifer Aly MD to Lynette Huerta;[phone], [place], on 03/29/2018 08:47:11 (ET). Electronically Signed: Jennifer Aly MD at 8:40 EST Tel , Service support ,
[2018-03-28] MEDS: 0.9% Normal Saline 1,000 ML 75 ML IV (16:42)
[2018-03-28] MEDS: 0.9% NaCl Peripheral Flush Adult/Peds IV (16:42)
[2018-03-29] VITALS (19 sets, daily range): BP systolic 123–152; BP diastolic 52–90; PULSE 82–125; RESP 18–30; TEMP 36.2–37.2; O2SAT 85–99
[2018-03-29] MEDS: Haloperidol Lactate 5 MG/ML Vial 1 MG IM (03:05)
--- NOTE | 2018-03-29 03:16 | NURSING ---
Called lab to find out why urine culture & urinalysis show as being cancelled. They checked into it and found that the orders had been cancelled by accident. They found the culture and will run it.
[2018-03-29 03:43] LABS: Color, Urine Yellow (Yellow); Glucose, Dipstick NEGATIVE (Normal); Ketone-Dipstick 5 mg/dl (Negative); Protein-Dipstick Negative (Negative); Specific Gravity, Urine 1.015 (1.002-1.030); Urine Bilirubin Dipstick Negative (Negative); Urine Clarity Clear (Clear); Urine Urobilinogen Normal (Normal)
[2018-03-29 03:44] LABS: Leukocyte Esterase-Dipstick Negative /ul (Negative); Nitrite-Dipstick Negative (Negative); Occult Blood-Urine 10 /ul (Negative)
[2018-03-29] MEDS: 0.9% Normal Saline 1,000 ML 75 ML IV ×2 (04:54→19:05)
[2018-03-29 06:42] LABS: Absolute Lymphocyte Count 0.95 X10^3/ul (0.83-4.51); Absolute Neutrophil Count 8.1 X10^3/uL (2.0-7.7); Basophil# 0.01 X10^3/uL; Basophil% 0.1 % (0-1); Hematocrit 36.8 % (37-47); Hemoglobin 11.6 g/dl (12.0-15.0); Lymphocyte # 0.95 X10^3/ul (4.0); Lymphocyte % 9.7 % (19-41); Mean Corp Hgb Conc 31.5 g/gl (32-36); Mean Corpuscular Hgb 33.7 pg (27.0-32.0); Mean Platelet Vol. 12.1 fl (6.2-12.0); Monocyte# 0.73 X10^3/uL; Monocyte% 7.5 % (0-10); Neutrophil # 8.05 X10^3/uL (2.7-7.7); Neutrophil % 82.3 % (47-70); Platelet Count 95 K/mm3 (150-450); RBC Distribution Width CV 15.5 % (11.6-14.6); RBC Distribution Width SD 59.4 fl (35.1-43.9); Red Blood Count 3.44 M/mm3 (4.2-5.4); White Blood Count 9.8 K/mm3 (4.4-11.0)
[2018-03-29 06:48] LABS: POSITIVE COUNT NO; POSITIVE DIFFERENTIAL NO; POSITIVE MORPHOLOGY NO
[2018-03-29] MEDS: Ipratropium/Albuterol Sulfate 3 ML AMPUL.NEB INHALATION ×3 (07:07→17:53)
[2018-03-29 07:08] LABS: Anion Gap 6 (5-15); BUN 22 mg/dL (7-18); BUN/Creat Ratio 31.8 RATIO (10-20); Calcium,Total 7.3 mg/dL (8.5-10.1); Chloride 110 mmol/L (98-107); Creatinine, Serum 0.69 mg/dL (0.55-1.02); EST Glomerular Filtration Rate 88 mL/min (>60); Est Glom Filt Rate - Afr Amer 106 mL/min (>60); Estimated Creatinine Clearance 37.78 ml/min; Glucose 84 mg/dL (74-106); Potassium 4.3 mmol/L (3.5-5.1); Sodium Level 140 mmol/L (136-145)
--- NOTE | 2018-03-29 08:42 | CPS ---
PEP not instructed, patient sleeping at this time.
[2018-03-29] MEDS: Enoxaparin 40 MG/0.4 ML Syringe SC (09:58)
--- NOTE | 2018-03-29 10:54 | EKG12_ITS ---
Test Reason : RHYTHM CHANGE Blood Pressure : / mmHG Vent. Rate : 111 BPM Atrial Rate : 111 BPM P-R Int : 170 ms QRS Dur : 076 ms QT Int : 348 ms P-R-T Axes : 081 -32 047 degrees QTc Int : 473 ms Sinus tachycardia Left axis deviation Septal infarct , age undetermined Abnormal ECG Confirmed by COURTNEY FLORES, CHRIS ([id number]), editor farm journal YEVGENIY HIDALGO ([id number] on 04/01/2018 3:07:35 PM Referred By: ELSY Confirmed By:CHRIS VALDEZ MD
--- NOTE | 2018-03-29 11:22 | PCM.PN.HOSP ---
Patient Problems: Active and Suspected Problems (Last Updated 03/28/18 @ 14:50 by Que Wallace DO) Acute respiratory failure with hypoxia (Acute) Aspiration pneumonia (Acute) Sepsis (Acute) Subjective: requesting something to drink. Does not answer questions properly, so unable to obtain any reliable history. Objective: mouth was suctioned earlier today. Vitals/I&O's: Vital Signs Temp Pulse Resp BP Pulse Ox 37.2 C 89 24 H 128/76 H 93 03/29/18 06:40 03/29/18 10:00 03/29/18 07:07 03/29/18 06:40 03/29/18 07:40 Oxygen Flow Rate (L/min) 4 Oxygen Delivery Method Nasal Cannula Weight: 50 kg Body Mass Index (BMI) 21.6 Intake and Output for Last 24 Hours 03/27/18 03/28/18 03/29/18 23:59 23:59 23:59 Intake Total 1006 / 1006 Output Total 60 / 60 450 / 450 Balance -60 / -60 556 / 556 General: Alert, Cooperative, No apparent distress HEENT: Atraumatic, Normocephalic Oral: Moist Mucosa, No Gingival or Mucosal Lesions/ Ulcerations Neck: No Nodes, Thyroid Normal Size and Texture Lungs: Diminished, - - coarse upper respiratory breath sounds. Cardiovascular: Regular rate, Regular Rhythm, Normal S1, Normal S2, No murmurs Abdomen: Bowel Sounds Present, Soft, Non Tender, Non-Distended, No Hepato-splenomegaly Extremities: No edema, No Calf Tenderness Skin: No rashes, No breakdown Musculoskeletal: No Tenderness to Palpation of Joints or Extremities, No Muscle Wasting Lymphatic: No Cervical, Supraclavicular, or Inguinal Adenopathy, Cervical Adenopathy Psych/Mental Status: Agitated, Anxious Microbiology Past 72 Hours 03/28/18 18:18 Urine Catheter - Catheter Streptococcus pneumoniae Antigen (M - Final 03/28/18 18:18 Urine Catheter - Catheter Legionella Antigen - Final Laboratory Results 03/28/18 09:10: Troponin I < 0.015 03/28/18 09:10: Lactic Acid 1.8 03/28/18 11:49: Specimen Type ART, Sample Site L Radial, pH 7.34 L, Bicarbonate Actual 24.3, POC Total CO2 26, Base Excess -1, O2 Saturation 100 H, ABG pCO2 45.3 H, ABG pO2 211 H, Rik Test POS, O2 Delivery Device NRB Mask, Liter Flow 15.0, Blood Gas Notified Whom ED , Blood Gas Notified Time 1145 03/28/18 18:00: Urine Color Yellow, Urine Clarity Clear, Urine pH 6.0, Ur Specific [place] 1.015, Urine Protein Negative, Urine Glucose (UA) NEGATIVE, Urine Ketones 5 H, Urine Occult Blood 10 H, Urine Nitrite Negative, Urine Bilirubin Negative, Urine Urobilinogen Normal, Ur Leukocyte Esterase Negative 03/28/18 18:18: U Specif Grav (Refrac) EDITING CLERK 03/29/18 06:05: WBC 9.8, RBC 3.44 L, Hgb 11.6 L, Hct 36.8 L, MCV 107.0 H, MCH 33.7 H, MCHC 31.5 L, RDW 15.5 H, RDW Differential 59.4 H, Plt Count 95 L, MPV 12.1 H, Immature Gran % (Auto) 0.400, Neut % (Auto) 82.3 H, Lymph % (Auto) 9.7 L, [place] % (Auto) 7.5, Eos % (Auto) 0.0, Baso % (Auto) 0.1, Absolute Neuts (auto) 8.1 H, Absolute Lymphs (auto) 0.95, Total Counted Not Reportable 03/29/18 06:05: Sodium 140, Potassium 4.3, Chloride 110 H, Carbon Dioxide 24.0, Anion Gap 6, BUN 22 H, Creatinine 0.69, Estim Creat Clear Calc 37.78, Est GFR (MDRD) Af Amer 106, Est GFR (MDRD) Non-Af 88, BUN/Creatinine Ratio 31.8 H, Glucose 84, Calcium 7.3 L Current Medications Acetaminophen (Tylenol) 650 mg PO Q6H PRN PRN PRN Reason: Mild Pain (1-3)/Temp > 100.7 F Albuterol Sulfate (Ventolin Aerosols) 2.5 mg INHALATION Q2H PRN PRN PRN Reason: shortnessof breath Albuterol/Ipratropium (Duoneb) 3 ml INHALATION Q6HWA.RT ANTONIA Last Admin: 03/29/18 07:07 Dose: 3 ml Divalproex Sodium (Depakote Er) 500 mg PO BREAKFAST ANTONAI Last Admin: 03/29/18 09:34 Dose: Not Given Divalproex Sodium (Depakote Er) 1,000 mg PO QHS [facility] Last Admin: 03/28/18 23:13 Dose: Not Given Doxepin HCl (Sinequan) 25 mg PO QHS PRN PRN Reason: SLEEP Enoxaparin Sodium (Lovenox) 40 mg SC DAILY@1000 [facility] Last Admin: 03/29/18 09:58 Dose: 40 mg Guaifenesin (Mucinex) 1,200 mg PO BID [facility] Last Admin: 03/29/18 09:59 Dose: Not Given Sodium Chloride () 1,000 mls @ 75 mls/hr IV .[id number] [facility] Last Admin: 03/29/18 04:54 Dose: 75 mls/hr Ampicillin Sodium/Sulbactam (Sodium 3 gm/ Sodium Chloride) 112 mls @ 150 mls/hr IV Q8 [facility] Last Admin: 03/29/18 05:39 Dose: 150 mls/hr Magnesium Hydroxide (Milk Of Magnesia) 30 ml PO DAILY PRN PRN PRN Reason: Constipation Ondansetron HCl (Zofran) 4 mg IV Q8H PRN PRN PRN Reason: NAUSEA Sodium Chloride () 5 - 15 ml IV UD PRN PRN Reason: SALINE FLUSH Last Admin: 03/28/18 16:42 Dose: 10 ml Vilazodone HCl (Viibryd) 20 mg PO DAILY [facility] Last Admin: 03/29/18 09:59 Dose: Not Given Medical Necessity - Tobacco Use Smoking Status: Never smoker Assessment/Plan All Active Problems (Last Updated 03/28/18 @ 14:50 by Que Wallace DO) Acute respiratory failure with hypoxia (Acute) Aspiration pneumonia (Acute) Sepsis (Acute) 1. Acute hypoxic respiratory failure Patient's pulse ox dropped down to 80% at one point and the patient was notably tachypneic which she still remains to be. Feel the etiology is likely a recent pneumonia this patient was fine and then was coughing up some phlegm and then had suctioned some phlegm. Plan is for the patient to be on pulmonary toilet with Unasyn and bronchodilators. wean oxygen as tolerated. 2. Suspected aspiration pneumonia Unasyn RLL infiltrate now noted on CXR Treatment as above Strep and Legionella antigen are negative Speech therapy to evaluate and treat. Patient will be n.p.o. until further cleared by speech therapy HOB 30 degrees 3. Sepsis Not initially present on admission but did develop subsequently when patient had the aspiration event Supportive management Follow-up cultures improved 4. Suspected dementia Patient diagnosed with depression and is on medications for depression plus pseudobulbar affect Patient has had some extent of workup per the family But given patient's waxing and waning levels of consciousness and not recognizing immediate family members is concerning for dementia and or neurodegenerative process (e.g., LBD) Recommend outpatient geriatric evaluation for dementia and neurologist DC doxepin, Viibryd as may be facilitating further confusion at this time. 5. DVT prophylaxis with Lovenox 6. Advanced care planning: Discussed with patient's son 12., is not the power of inspection manager, and states that there is been no formal discussion about CODE STATUS. I did discuss with him briefly about DNR CCA and CPR, intubation and PEG tube's. Code Visit Inpatient E&M: 83855 Subs Hosp L2
--- NOTE | 2018-03-29 11:29 | PN_ITS ---
Patient Problems: Active and Suspected Problems (Last Updated 03/28/18 @ 14:50 by Que Wallace DO) Acute respiratory failure with hypoxia (Acute) Aspiration pneumonia (Acute) Sepsis (Acute) Subjective: requesting something to drink. Does not answer questions properly, so unable to obtain any reliable history. Objective: mouth was suctioned earlier today. Vitals/I&O's: Vital Signs Temp Pulse Resp BP Pulse Ox 37.2 C 89 24 H 128/76 H 93 03/29/18 06:40 03/29/18 10:00 03/29/18 07:07 03/29/18 06:40 03/29/18 07:40 Oxygen Flow Rate (L/min) 4 Oxygen Delivery Method Nasal Cannula Weight: 50 kg Body Mass Index (BMI) 21.6 Intake and Output for Last 24 Hours 03/27/18 03/28/18 03/29/18 23:59 23:59 23:59 Intake Total 1006 / 1006 Output Total 60 / 60 450 / 450 Balance -60 / -60 556 / 556 General: Alert, Cooperative, No apparent distress HEENT: Atraumatic, Normocephalic Oral: Moist Mucosa, No Gingival or Mucosal Lesions/ Ulcerations Neck: No Nodes, Thyroid Normal Size and Texture Lungs: Diminished, - - coarse upper respiratory breath sounds. Cardiovascular: Regular rate, Regular Rhythm, Normal S1, Normal S2, No murmurs Abdomen: Bowel Sounds Present, Soft, Non Tender, Non-Distended, No Hepato- splenomegaly Extremities: No edema, No Calf Tenderness Skin: No rashes, No breakdown Musculoskeletal: No Tenderness to Palpation of Joints or Extremities, No Muscle Wasting Lymphatic: No Cervical, Supraclavicular, or Inguinal Adenopathy, Cervical Adenopathy Psych/Mental Status: Agitated, Anxious Microbiology Past 72 Hours 03/28/18 18:18 Urine Catheter - Catheter Streptococcus pneumoniae Antigen (M - Final 03/28/18 18:18 Urine Catheter - Catheter Legionella Antigen - Final Laboratory Results 03/28/18 09:10: Troponin I < 0.015 03/28/18 09:10: Lactic Acid 1.8 03/28/18 11:49: Specimen Type ART, Sample Site L Radial, pH 7.34 L, Bicarbonate Actual 24.3, POC Total CO2 26, Base Excess -1, O2 Saturation 100 H, ABG pCO2 45.3 H, ABG pO2 211 H, Rik Test POS, O2 Delivery Device NRB Mask, Liter Flow 15.0, Blood Gas Notified Whom ED , Blood Gas Notified Time 1145 03/28/18 18:00: Urine Color Yellow, Urine Clarity Clear, Urine pH 6.0, Ur Specific [place] 1.015, Urine Protein Negative, Urine Glucose (UA) NEGATIVE, Urine Ketones 5 H, Urine Occult Blood 10 H, Urine Nitrite Negative, Urine Bilirubin Negative, Urine Urobilinogen Normal, Ur Leukocyte Esterase Negative 03/28/18 18:18: U Specif Grav (Refrac) AIRLINE PILOT 03/29/18 06:05: WBC 9.8, RBC 3.44 L, Hgb 11.6 L, Hct 36.8 L, MCV 107.0 H, MCH 33.7 H, MCHC 31.5 L, RDW 15.5 H, RDW Differential 59.4 H, Plt Count 95 L, MPV 12.1 H, Immature Gran % (Auto) 0.400, Neut % (Auto) 82.3 H, Lymph % (Auto) 9.7 L , [place] % (Auto) 7.5, Eos % (Auto) 0.0, Baso % (Auto) 0.1, Absolute Neuts (auto) 8.1 H, Absolute Lymphs (auto) 0.95, Total Counted Not Reportable 03/29/18 06:05: Sodium 140, Potassium 4.3, Chloride 110 H, Carbon Dioxide 24.0, Anion Gap 6, BUN 22 H, Creatinine 0.69, Estim Creat Clear Calc 37.78, Est GFR (MDRD) Af Amer 106, Est GFR (MDRD) Non-Af 88, BUN/Creatinine Ratio 31.8 H, Glucose 84, Calcium 7.3 L Current Medications Acetaminophen (Tylenol) 650 mg PO Q6H PRN PRN PRN Reason: Mild Pain (1-3)/Temp > 100.7 F Albuterol Sulfate (Ventolin Aerosols) 2.5 mg INHALATION Q2H PRN PRN PRN Reason: shortnessof breath Albuterol/Ipratropium (Duoneb) 3 ml INHALATION Q6HWA.RT ANTONIA Last Admin: 03/29/18 07:07 Dose: 3 ml Divalproex Sodium (Depakote Er) 500 mg PO BREAKFAST ANTONIA Last Admin: 03/29/18 09:34 Dose: Not Given Divalproex Sodium (Depakote Er) 1,000 mg PO QHS [facility] Last Admin: 03/28/18 23:13 Dose: Not Given Doxepin HCl (Sinequan) 25 mg PO QHS PRN PRN Reason: SLEEP Enoxaparin Sodium (Lovenox) 40 mg SC DAILY@1000 [facility] Last Admin: 03/29/18 09:58 Dose: 40 mg Guaifenesin (Mucinex) 1,200 mg PO BID [facility] Last Admin: 03/29/18 09:59 Dose: Not Given Sodium Chloride () 1,000 mls @ 75 mls/hr IV .[id number] [facility] Last Admin: 03/29/18 04:54 Dose: 75 mls/hr Ampicillin Sodium/Sulbactam (Sodium 3 gm/ Sodium Chloride) 112 mls @ 150 mls/hr IV Q8 [facility] Last Admin: 03/29/18 05:39 Dose: 150 mls/hr Magnesium Hydroxide (Milk Of Magnesia) 30 ml PO DAILY PRN PRN PRN Reason: Constipation Ondansetron HCl (Zofran) 4 mg IV Q8H PRN PRN PRN Reason: NAUSEA Sodium Chloride () 5 - 15 ml IV UD PRN PRN Reason: SALINE FLUSH Last Admin: 03/28/18 16:42 Dose: 10 ml Vilazodone HCl (Viibryd) 20 mg PO DAILY [facility] Last Admin: 03/29/18 09:59 Dose: Not Given Medical Necessity - Tobacco Use Smoking Status: Never smoker Assessment/Plan All Active Problems (Last Updated 03/28/18 @ 14:50 by Que Wallace DO) Acute respiratory failure with hypoxia (Acute) Aspiration pneumonia (Acute) Sepsis (Acute) 1. Acute hypoxic respiratory failure * Patient's pulse ox dropped down to 80% at one point and the patient was notably tachypneic which she still remains to be. * Feel the etiology is likely a recent pneumonia this patient was fine and then was coughing up some phlegm and then had suctioned some phlegm. * Plan is for the patient to be on pulmonary toilet with Unasyn and bronchodilators. * wean oxygen as tolerated. 2. Suspected aspiration pneumonia * Unasyn * RLL infiltrate now noted on CXR * Treatment as above * Strep and Legionella antigen are negative * Speech therapy to evaluate and treat. Patient will be n.p.o. until further cleared by speech therapy * HOB 30 degrees 3. Sepsis * Not initially present on admission but did develop subsequently when patient had the aspiration event * Supportive management * Follow-up cultures * improved 4. Suspected dementia * Patient diagnosed with depression and is on medications for depression plus pseudobulbar affect * Patient has had some extent of workup per the family * But given patient's waxing and waning levels of consciousness and not recognizing immediate family members is concerning for dementia and or neurodegenerative process (e.g., LBD) * Recommend outpatient geriatric evaluation for dementia and neurologist * DC doxepin, Viibryd as may be facilitating further confusion at this time. 5. DVT prophylaxis with Lovenox 6. Advanced care planning: Discussed with patient's son 12.29, is not the power of estate attorney, and states that there is been no formal discussion about CODE STATUS. I did discuss with him briefly about DNR CCA and CPR, intubation and PEG tube's. Code Visit Inpatient E&M: 65237 Subs Hosp L2
[2018-03-29 12:01] LABS: Prealbumin 12.2 mg/dL (20.0-40.0)
[2018-03-29] MEDS: Acetaminophen 650 MG Suppository RECTAL (12:48)
[2018-03-29 13:33] LABS: Vitamin D,25 Hydroxy 44.8 ng/mL (29.95-100.01)
[2018-03-30] VITALS (19 sets, daily range): BP systolic 117–173; BP diastolic 60–86; PULSE 77–110; RESP 18–32; TEMP 36.4–37.8; O2SAT 85–100
[2018-03-30] MEDS: Ipratropium/Albuterol Sulfate 3 ML AMPUL.NEB INHALATION ×2 (07:52→20:12)
--- NOTE | 2018-03-30 09:33 | CPS ---
Patient unable to understand PEP therapy and to tolerate vest therapy at this time
[2018-03-30] MEDS: 0.9% Normal Saline 1,000 ML 75 ML IV (10:12)
[2018-03-30] MEDS: Enoxaparin 40 MG/0.4 ML Syringe SC (12:21)
[2018-03-30] MEDS: guaiFENesin 1,200 MG Tablet 1200 MG PO ×2 (12:22→22:47)
[2018-03-30] MEDS: Divalproex (ER) 500 MG Tablet PO (12:22)
--- NOTE | 2018-03-30 13:55 | CASEMGMT ---
RN CM Face to Face with patient for initial transition planning/care coordination assessment. RN CM introduced self and role at [facility]. Patient lying in bed, sleeping. Per nursing patient is alert to self. RN CM called Alexis Campos to complete assessment. Care providers, pharmacy, and demographics verified. Family is wishing for patient to discharge home with [facility] if appropriate. Family willing for patient to go to SNF if necessary and would prefer [facility]. LUANA Berry updated regarding potential placement. Son states he has no further needs or concerns at this time. CM to follow for discharge planning needs that may arise. PCP: Senthil Specialists: None Preferred Pharmacy: [facility] Insurance: [employer] Prescription Benefit: YEs Living Will/HPOA: Maybe LNOK: Rene Living Arrangements: Patient lives with alexis Acharya in Home with setup on 1st floor. Transportation: [facility] DME/HHC: Patient has cane, walker, and WC. Caregiver 5 days per week from 10-6. Patient has previously been to [facility]. Preferred SNF is [facility]. Disposition Plan: TBD, SNF vs C Gemma REBOLLEDO, RN, CM
--- NOTE | 2018-03-30 20:56 | PCM.PROGNOTE ---
Patient Problems: Active and Suspected Problems (Last Updated 03/28/18 @ 14:50 by Que Wallace DO) Acute respiratory failure with hypoxia (Acute) Aspiration pneumonia (Acute) Sepsis (Acute) Subjective: Unasyn day #3 Patient is a 78-year-old female with a past medical history of depression and seizure disorder who presented to the emergency room at [facility] on 03/28/2018 with complaints of cough productive of yellow phlegm and shortness of breath with exertion. Pulse ox dropped to 80% on a 6 L nasal cannula while still in the emergency department and she was placed on a nonrebreather. She was confused and history was obtained from her son who is her caregiver. Patient is apparently confused at baseline. Significant lab in the emergency room included an elevated WBC count at 12.4 with 81% neutrophils. Platelets and hemoglobin were within normal limits. An ABG on a nonrebreather mask revealed a pH of 7.34, PCO2 of 45 and a PO2 of 211. BMP was unremarkable. Lactic acid was 1.8. Troponin was less than 0.015. CT scan of the chest, abdomen and pelvis were unremarkable. Streptococcal and Legionella antigens in the urine were negative. Urine culture had no growth. Blood culture is still pending. She is presumed to have aspiration PNA. She has a integration software developer for 8 hours 5 days a week and her son cares for her at night. I spoke to her caregiver and apparently she is declining at home. She tells me that she usually eats well but she is not able to ambulate without losing her balance and she has had falls. She is incontinent of both urine and stool. All events of the past 24 hours of been reviewed. Tmax over the past 24 hours is 100.1 ?F. Prior to this she was afebrile. She is currently 100% saturated on a 3 L nasal cannula with a respiratory rate of 24. All lab was personally reviewed. The white blood cell count on 03/29/2018 was down to 9.8 with persistent left shift. She is mumbling and not appropriately answering my questions. She is attempting to remove her oxygen. She ate a very small amount of her lunch. She was seen by speech therapy again today and was approved for a mechanical soft diet with thin liquids with direct supervision and assistance as needed. She should remain upright for 30-60 minutes post intake and medication should be crushed and given in applesauce. I observed her drinking water in her room and she did cough following swallowing. Objective: PHYSICAL EXAM: GENERAL: alert, cannot assess orientation because she will not answer my questions. She is tearful but does not appear to be in any acute distress. Non-cooperative ORAL: moist mucosa, no mucosal lesions NECK: No JVD, supple, trachea midline LUNGS: Diminished with coarse breath sounds, especially in the upper lobes HEART: RRR, Normal S1 and S2, no rub, no gallop ABDOMEN: soft, NT, ND, BS present, no guarding with palpation EXTREMITIES: no edema, no cyanosis, no calf tenderness SKIN: No rashes, no breakdown NEUROLOGIC: no focal neurologic deficits PSYCH: tearful and appear to be afraid/anxious - Physical Exam Vital Signs Temp Pulse Resp BP Pulse Ox 98.4 F 97 24 H 146/72 H 100 03/30/18 19:29 03/30/18 20:13 03/30/18 20:13 03/30/18 19:29 03/30/18 19:45 Oxygen Flow Rate (L/min) 3 Oxygen Delivery Method Nasal Cannula Weight: 110 lb 3.698 oz Body Mass Index (BMI) 21.6 Intake and Output for Last 24 Hours 03/28/18 03/29/18 03/30/18 23:59 23:59 23:59 Intake Total 2020 2289 / 2289 Output Total 60 / 60 850 / 850 200 / 200 Balance -60 / -60 1171 / 1171 2089 / 2089 Microbiology Past 72 Hours 03/28/18 18:00 Urine Culture - Preliminary Urine Catheter - Catheter Culture exhibits no growth. 03/28/18 18:18 Streptococcus pneumoniae Antigen (M - Final Urine Catheter - Catheter 03/28/18 18:18 Legionella Antigen - Final Urine Catheter - Catheter Medical Necessity - Tobacco Use Smoking Status: Never smoker Assessment/Plan All Active Problems (Last Updated 03/28/18 @ 14:50 by Que Wallace DO) Acute respiratory failure with hypoxia (Acute) Aspiration pneumonia (Acute) Sepsis (Acute) Impressions 1. Acute hypoxic respiratory failure-chest CT unremarkable, etiology? Possible aspiration? Possible viral URI? 2. Suspected aspiration pneumonia however CT of the chest did not reveal infiltrates initially. Chest x-ray done one day following admission shows a new right basilar infiltrate secondary to aspiration. 3. Oral pharyngeal dysphagia-approved for mechanical soft diet with thin liquids under supervision - I think she may need a MBS - I suspect she aspirates and observed her coughing after drinking water in her room.......she was not being supervised during her meal....her integration software developer was in the room but not assisting 4. Suspected dementia versus delirium secondary to pneumonia 5. Severe sepsis with aspiration pneumonia and acute hypoxic respiratory failure We will continue to try and contact her son. She likely needs 24-hour care and will likely need placement Continue Unasyn We will discuss modified barium swallow with speech therapy Code Visit Inpatient E&M: 93950 Subs Hosp L2
--- NOTE | 2018-03-30 21:05 | PN_ITS ---
Patient Problems: Active and Suspected Problems (Last Updated 03/28/18 @ 14:50 by Que Wallace DO) Acute respiratory failure with hypoxia (Acute) Aspiration pneumonia (Acute) Sepsis (Acute) Subjective: Unasyn day #3 Patient is a 78-year-old female with a past medical history of depression and seizure disorder who presented to the emergency room at [facility] on 03/28/2018 with complaints of cough productive of yellow phlegm and shortness of breath with exertion. Pulse ox dropped to 80% on a 6 L nasal cannula while still in the emergency department and she was placed on a nonrebreather. She was confused and history was obtained from her son who is her caregiver. Patient is apparently confused at baseline. Significant lab in the emergency room included an elevated WBC count at 12.4 with 81% neutrophils. Platelets and hemoglobin were within normal limits. An ABG on a nonrebreather mask revealed a pH of 7.34, PCO2 of 45 and a PO2 of 211. BMP was unremarkable. Lactic acid was 1.8. Troponin was less than 0.015. CT scan of the chest, abdomen and pelvis were unremarkable. Streptococcal and Legionella antigens in the urine were negative. Urine culture had no growth. Blood culture is still pending. She is presumed to have aspiration PNA. She has a tandem mill operator for 8 hours 5 days a week and her son cares for her at night. I spoke to her caregiver and apparently she is declining at home. She tells me that she usually eats well but she is not able to ambulate without losing her balance and she has had falls. She is incontinent of both urine and stool. All events of the past 24 hours of been reviewed. Tmax over the past 24 hours is 100.1 ?F. Prior to this she was afebrile. She is currently 100% saturated on a 3 L nasal cannula with a respiratory rate of 24. All lab was personally reviewed. The white blood cell count on 03/29/2018 was down to 9.8 with persistent left shift. She is mumbling and not appropriately answering my questions. She is attempting to remove her oxygen. She ate a very small amount of her lunch. She was seen by speech therapy again today and was approved for a mechanical soft diet with thin liquids with direct supervision and assistance as needed. She should remain upright for 30-60 minutes post intake and medication should be crushed and given in applesauce. I observed her drinking water in her room and she did cough following swallowing. Objective: PHYSICAL EXAM: GENERAL: alert, cannot assess orientation because she will not answer my questions. She is tearful but does not appear to be in any acute distress. Non-cooperative ORAL: moist mucosa, no mucosal lesions NECK: No JVD, supple, trachea midline LUNGS: Diminished with coarse breath sounds, especially in the upper lobes HEART: RRR, Normal S1 and S2, no rub, no gallop ABDOMEN: soft, NT, ND, BS present, no guarding with palpation EXTREMITIES: no edema, no cyanosis, no calf tenderness SKIN: No rashes, no breakdown NEUROLOGIC: no focal neurologic deficits PSYCH: tearful and appear to be afraid/anxious - Physical Exam Vital Signs Temp Pulse Resp BP Pulse Ox 98.4 F 97 24 H 146/72 H 100 03/30/18 19:29 03/30/18 20:13 03/30/18 20:13 03/30/18 19:29 03/30/18 19:45 Oxygen Flow Rate (L/min) 3 Oxygen Delivery Method Nasal Cannula Weight: 110 lb 3.698 oz Body Mass Index (BMI) 21.6 Intake and Output for Last 24 Hours 03/28/18 03/29/18 03/30/18 23:59 23:59 23:59 Intake Total 2020 2289 / 2289 Output Total 60 / 60 850 / 850 200 / 200 Balance -60 / -60 1171 / 1171 2089 / 2089 Microbiology Past 72 Hours 03/28/18 18:00 Urine Culture - Preliminary Urine Catheter - Catheter Culture exhibits no growth. 03/28/18 18:18 Streptococcus pneumoniae Antigen (M - Final Urine Catheter - Catheter 03/28/18 18:18 Legionella Antigen - Final Urine Catheter - Catheter Medical Necessity - Tobacco Use Smoking Status: Never smoker Assessment/Plan All Active Problems (Last Updated 03/28/18 @ 14:50 by Que Wallace DO) Acute respiratory failure with hypoxia (Acute) Aspiration pneumonia (Acute) Sepsis (Acute) Impressions 1. Acute hypoxic respiratory failure-chest CT unremarkable, etiology? Possible aspiration? Possible viral URI? 2. Suspected aspiration pneumonia however CT of the chest did not reveal infiltrates initially. Chest x-ray done one day following admission shows a new right basilar infiltrate secondary to aspiration. 3. Oral pharyngeal dysphagia-approved for mechanical soft diet with thin liquids under supervision - I think she may need a MBS - I suspect she aspirates and observed her coughing after drinking water in her room.......she was not being supervised during her meal....her tandem mill operator was in the room but not assisting 4. Suspected dementia versus delirium secondary to pneumonia 5. Severe sepsis with aspiration pneumonia and acute hypoxic respiratory to lure We will continue to try and contact her son. She likely needs 24-hour care and will likely need placement Continue Unasyn We will discuss modified barium swallow with speech therapy Code Visit Inpatient E&M: 53379 Subs Hosp L2
--- NOTE | 2018-03-30 22:38 | NURSING ---
pt is on depakote ER. EMILE says not to crush or split. Called Rx and he said to call the dr and see if they would switch it to liquid. The son states that they crushes it and put it in ice cream at at home. States her Dr. told the son to do anything he can to get her to take the medication. Talked to Dr Woodruff and he said that the med can be given the way she takes it at home and go ahead and crush the depakote.
[2018-03-30] MEDS: Divalproex (ER) 500 MG Tablet 1000 MG PO (22:47)
[2018-03-31] VITALS (11 sets, daily range): BP systolic 124–133; BP diastolic 51–70; PULSE 71–98; RESP 18–24; TEMP 36.6–37.4; O2SAT 94–97
[2018-03-31] MEDS: 0.9% Normal Saline 1,000 ML 75 ML IV ×2 (01:07→13:36)
[2018-03-31] MEDS: Ipratropium/Albuterol Sulfate 3 ML AMPUL.NEB INHALATION ×3 (06:53→19:04)
--- NOTE | 2018-03-31 08:53 | PCM.PROGNOTE ---
Patient Problems: Active and Suspected Problems (Last Updated 03/28/18 @ 14:50 by Que Wallace DO) Acute respiratory failure with hypoxia (Acute) Aspiration pneumonia (Acute) Sepsis (Acute) Subjective: All events the past 24 hours of been reviewed. Day #4 antibiotics-Unasyn T-max for the past 24 hours is 100.1 ?F at 5 PM on 03/30/2018. Current temp is 98.7. Oral intake on 03/30/2018 was 280 cc Respiratory panel is pending. Legionella and streptococcal antigens were negative. Urine culture had no growth. Blood culture is still pending but no growth to date. She did participate with the speech therapist today when eating breakfast. She was taking very large bites and required the speech therapist to put food on the spoon and then handed to her to take appropriate sized bites. She tends to swallow thin liquids very fast and sometimes coughs. She is sleeping soundly. Lying flat in bed with no tachypnea and no accessory muscle use. Objective: GENERAL: sleeping, less agitated today ,no acute distress. NECK: No JVD, supple, trachea midline LUNGS: Diminished with coarse breath sounds and rales on the right. The left is mostly clear. No wheezing today HEART: RRR, Normal S1 and S2, no rub, no gallop ABDOMEN: soft, NT, ND, BS present, no guarding with palpation EXTREMITIES: no edema, no cyanosis, no calf tenderness SKIN: No rashes, no breakdown NEUROLOGIC: no focal neurologic deficits - Physical Exam Vital Signs Temp Pulse Resp BP Pulse Ox 98.7 F 93 24 H 130/63 H 94 03/31/18 04:40 03/31/18 06:53 03/31/18 06:53 03/31/18 04:40 03/31/18 06:53 Oxygen Flow Rate (L/min) 3 Oxygen Delivery Method Nasal Cannula Weight: 110 lb 3.698 oz Body Mass Index (BMI) 21.6 Intake and Output for Last 24 Hours 03/29/18 03/30/18 03/31/18 23:59 23:59 23:59 Intake Total 2020 2289 / 2289 942 / 942 Output Total 850 / 850 200 / 200 Balance 1171 / 1171 2089 / 2089 942 / 942 Microbiology Past 72 Hours 03/28/18 18:00 Urine Culture - Final Urine Catheter - Catheter Culture exhibits no growth. 03/28/18 18:18 Streptococcus pneumoniae Antigen (M - Final Urine Catheter - Catheter 03/28/18 18:18 Legionella Antigen - Final Urine Catheter - Catheter Medical Necessity - Tobacco Use Smoking Status: Never smoker Assessment/Plan All Active Problems (Last Updated 03/28/18 @ 14:50 by Que Wallace DO) Acute respiratory failure with hypoxia (Acute) Aspiration pneumonia (Acute) Sepsis (Acute) Impressions 1. Acute hypoxic respiratory failure-chest CT unremarkable, etiology? Possible aspiration? Possible viral URI? 2. Suspected aspiration pneumonia however CT of the chest did not reveal infiltrates initially. Chest x-ray done one day following admission shows a new right basilar infiltrate secondary to aspiration. 3. Oral pharyngeal dysphagia-approved for mechanical soft diet with thin liquids under supervision - I think she may need a MBS - I suspect she aspirates and observed her coughing after drinking water in her room.......she was not being supervised during her meal....her explosive man was in the room but not assisting 4. Suspected dementia versus delirium secondary to pneumonia 5. Severe sepsis with aspiration pneumonia and acute hypoxic respiratory failure 6. recheck the lab in the AM Continue Unasyn Repeat chest x-ray in the a.m. PT recommends TCU or 24 H supervision at home - she ambulated 10 feet yesterday with FWW Restart the Viibryd.....son can not afford the Nudexta and want sot stop this medication. He tells me that she is taking Depakote for dementia.....she has no seizure disorder. We will check a valproic acid level now and also an ammonia level Her son would like to have her go to TCU at [place]....will discuss with the [place] process planner tomorrow Code Visit Inpatient E&M: 06809 Subs Hosp L2
--- NOTE | 2018-03-31 08:56 | PN_ITS ---
Patient Problems: Active and Suspected Problems (Last Updated 03/28/18 @ 14:50 by Que Wallace DO) Acute respiratory failure with hypoxia (Acute) Aspiration pneumonia (Acute) Sepsis (Acute) Subjective: All events the past 24 hours of been reviewed. Day #4 antibiotics-Unasyn T-max for the past 24 hours is 100.1 ?F at 5 PM on 03/30/2018. Current temp is 98.7. Oral intake on 03/30/2018 was 280 cc Respiratory panel is pending. Legionella and streptococcal antigens were negative. Urine culture had no growth. Blood culture is still pending but no growth to date. She did participate with the speech therapist today when eating breakfast. She was taking very large bites and required the speech therapist to put food on the spoon and then handed to her to take appropriate sized bites. She tends to swallow thin liquids very fast and sometimes coughs. She is sleeping soundly. Lying flat in bed with no tachypnea and no accessory muscle use. Objective: GENERAL: sleeping, less agitated today ,no acute distress. NECK: No JVD, supple, trachea midline LUNGS: Diminished with coarse breath sounds and rales on the right. The left is mostly clear. No wheezing today HEART: RRR, Normal S1 and S2, no rub, no gallop ABDOMEN: soft, NT, ND, BS present, no guarding with palpation EXTREMITIES: no edema, no cyanosis, no calf tenderness SKIN: No rashes, no breakdown NEUROLOGIC: no focal neurologic deficits - Physical Exam Vital Signs Temp Pulse Resp BP Pulse Ox 98.7 F 93 24 H 130/63 H 94 03/31/18 04:40 03/31/18 06:53 03/31/18 06:53 03/31/18 04:40 03/31/18 06:53 Oxygen Flow Rate (L/min) 3 Oxygen Delivery Method Nasal Cannula Weight: 110 lb 3.698 oz Body Mass Index (BMI) 21.6 Intake and Output for Last 24 Hours 03/29/18 03/30/18 03/31/18 23:59 23:59 23:59 Intake Total 2020 2289 / 2289 942 / 942 Output Total 850 / 850 200 / 200 Balance 1171 / 1171 2089 / 2089 942 / 942 Microbiology Past 72 Hours 03/28/18 18:00 Urine Culture - Final Urine Catheter - Catheter Culture exhibits no growth. 03/28/18 18:18 Streptococcus pneumoniae Antigen (M - Final Urine Catheter - Catheter 03/28/18 18:18 Legionella Antigen - Final Urine Catheter - Catheter Medical Necessity - Tobacco Use Smoking Status: Never smoker Assessment/Plan All Active Problems (Last Updated 03/28/18 @ 14:50 by Que Wallace DO) Acute respiratory failure with hypoxia (Acute) Aspiration pneumonia (Acute) Sepsis (Acute) Impressions 1. Acute hypoxic respiratory failure-chest CT unremarkable, etiology? Possible aspiration? Possible viral URI? 2. Suspected aspiration pneumonia however CT of the chest did not reveal infiltrates initially. Chest x-ray done one day following admission shows a new right basilar infiltrate secondary to aspiration. 3. Oral pharyngeal dysphagia-approved for mechanical soft diet with thin liquids under supervision - I think she may need a MBS - I suspect she aspirates and observed her coughing after drinking water in her room.......she was not being supervised during her meal....her enamel cracker was in the room but not assisting 4. Suspected dementia versus delirium secondary to pneumonia 5. Severe sepsis with aspiration pneumonia and acute hypoxic respiratory failure 6. recheck the lab in the AM Continue Unasyn Repeat chest x-ray in the a.m. PT recommends TCU or 24 H supervision at home - she ambulated 10 feet yesterday with FWW Restart the Viibryd.....son can not afford the Nudexta and want sot stop this medication. He tells me that she is taking Depakote for dementia.....she has no seizure disorder. We will check a valproic acid level now and also an ammonia level Her son would like to have her go to TCU at [facility]....will discuss with the [place] community planner tomorrow Code Visit Inpatient E&M: 10228 Subs Hosp L2
[2018-03-31] MEDS: Enoxaparin 40 MG/0.4 ML Syringe SC (10:05)
[2018-03-31] MEDS: guaiFENesin 1,200 MG Tablet 1200 MG PO ×2 (10:05→21:40)
[2018-03-31 12:52] LABS: Valproic Acid (Depakene) Level 82 ug/mL (50-100)
[2018-03-31] MEDS: VILAZODONE HYDROCHLORIDE 20 MG TABLET PO (16:15)
[2018-04-01] VITALS (7 sets, daily range): BP systolic 123–158; BP diastolic 63–74; PULSE 60–91; RESP 16–24; TEMP 36.4–37.6; O2SAT 86–97
[2018-04-01] MEDS: 0.9% Normal Saline 1,000 ML 75 ML IV (02:44)
[2018-04-01 05:45] LABS: Absolute Neutrophil Count 5.3 X10^3/uL (2.0-7.7); Basophil# 0.01 X10^3/uL; Basophil% 0.1 % (0-1); Eosinophil# 0.01 X10^3/uL; Eosinophils% 0.1 % (0-5); Hematocrit 30.6 % (37-47); Hemoglobin 9.9 g/dl (12.0-15.0); Lymphocyte % 17.8 % (19-41); Mean Corp Hgb Conc 32.4 g/gl (32-36); Mean Corpuscular Hgb 33.8 pg (27.0-32.0); Mean Corpuscular Volume 104.4 fL (81-99); Monocyte# 0.61 X10^3/uL; Monocyte% 8.4 % (0-10); Neutrophil # 5.33 X10^3/uL (2.7-7.7); Neutrophil % 73.2 % (47-70); Platelet Count 127 K/mm3 (150-450); RBC Distribution Width CV 14.5 % (11.6-14.6); RBC Distribution Width SD 54.2 fl (35.1-43.9); Red Blood Count 2.93 M/mm3 (4.2-5.4); White Blood Count 7.3 K/mm3 (4.4-11.0)
[2018-04-01 05:50] LABS: POSITIVE COUNT NO; POSITIVE DIFFERENTIAL NO; POSITIVE MORPHOLOGY NO
--- NOTE | 2018-04-01 05:55 | RAD_ITS ---
STUDY: X-RAY CHEST REASON FOR EXAM: Female, 78 years old. Pneumonia. Acute hypoxic respiratory failure. TECHNIQUE: AP and lateral views of the chest. COMPARISON: Comparison is made with prior study dated March 28, 2018. FINDINGS: Since prior study, there has been increasing bilateral pleural effusions with underlying infiltration and/or atelectasis. This is superimposed on CHF. There is borderline cardiomegaly. Normal mediastinum and jose. Normal visualized pulmonary arteries. There is atherosclerotic tortuosity of the aortic arch and descending thoracic aorta. There is a levoscoliosis of the thoracic spine. There is degenerative osteoarthritis of the bilateral shoulders. There is no demonstrated abnormality of the visualized soft tissue structures of the upper abdomen. RAD/Chest PA and Lateral IMPRESSION: Increasing bilateral pleural effusions with underlying infiltration and/or atelectasis superimposed on CHF. Electronically Signed: Antonio Farmer MD at 14:15 EST Tel [phone], Service support ,
[2018-04-01 06:01] LABS: Anion Gap 9 (5-15); BUN 8 mg/dL (7-18); Calcium,Total 6.8 mg/dL (8.5-10.1); Chloride 110 mmol/L (98-107); Creatinine, Serum 0.32 mg/dL (0.55-1.02); EST Glomerular Filtration Rate 213 mL/min (>60); Est Glom Filt Rate - Afr Amer 258 mL/min (>60); Estimated Creatinine Clearance 34.38 ml/min; Glucose 90 mg/dL (74-106); Magnesium 1.8 mg/dL (1.6-2.6); Phosphorus 1.2 mg/dL (2.5-4.9); Potassium 2.4 mmol/L (3.5-5.1); Sodium Level 143 mmol/L (136-145)
[2018-04-01] MEDS: Potassium Chloride 10mEq/100mL 10 MEQ/100 ML IV.SOLN. 100 MEQ IV BOLUS ×4 (06:50→10:21)
[2018-04-01] MEDS: Ipratropium/Albuterol Sulfate 3 ML AMPUL.NEB INHALATION ×3 (07:31→18:55)
[2018-04-01] MEDS: guaiFENesin 1,200 MG Tablet 1200 MG PO ×2 (08:08→22:19)
[2018-04-01] MEDS: Enoxaparin 40 MG/0.4 ML Syringe SC (08:09)
--- NOTE | 2018-04-01 10:00 | CASEMGMT ---
Social Work Note RN FAZAL Anne informed this worker that pt's family would like a referral sent to [facility]. SW placed a call to [facility] management to send referral to [facility]. Plan: [facility] pending acceptance and pre-cert Gemma Berry PROGRAM SERVICES PLANNER, REGISTERED PHYSICAL THERAPIST
--- NOTE | 2018-04-01 10:05 | CASEMGMT ---
RN FAZAL called and spoke to son Venu and updated regarding discharge planning. Family would like patient to go to TCU but there are no beds available. List of SNF in-network with insurance emailed to son. Son agreeable for referral to be sent to [facility]. LUANA Berry updated regarding request for placement.
--- NOTE | 2018-04-01 11:34 | CASEMGMT ---
Per LUANA Perla, referral needs sent to [facility] and if facility can accept, precert can be started. Call placed to facility, admissions staff unavailable. Address Change Clerk informed that referral would be faxed. Faxed to [phone], confirmation received. Nelida Perez LPN Clinical Support
[2018-04-01] MEDS: Acetaminophen 325 MG Tablet 650 MG PO ×2 (11:49→22:19)
--- NOTE | 2018-04-01 14:20 | CASEMGMT ---
Received voicemail from Ayah at [facility]. Facility is able to accept patient and has started pre-cert. Nelida Perez LPN Clinical Support
[2018-04-01] MEDS: VILAZODONE HYDROCHLORIDE 20 MG TABLET PO (16:57)
[2018-04-01 17:17] LABS: Anion Gap 6 (5-15); BUN 10 mg/dL (7-18); Calcium,Total 7.1 mg/dL (8.5-10.1); Chloride 114 mmol/L (98-107); Creatinine, Serum 0.43 mg/dL (0.55-1.02); EST Glomerular Filtration Rate 150 mL/min (>60); Est Glom Filt Rate - Afr Amer 182 mL/min (>60); Estimated Creatinine Clearance 34.38 ml/min; Glucose 100 mg/dL (74-106); Potassium 3.9 mmol/L (3.5-5.1); Sodium Level 145 mmol/L (136-145)
--- NOTE | 2018-04-01 17:30 | PCM.PROGNOTE ---
Patient Problems: Active and Suspected Problems (Last Updated 03/28/18 @ 14:50 by Que Wallace DO) Acute respiratory failure with hypoxia (Acute) Aspiration pneumonia (Acute) Sepsis (Acute) Subjective: All events of the past 24 hours of been reviewed. She is afebrile and vital signs are stable. She was 86% saturated on room air today but 97% saturated on a 1 L nasal cannula. CBC today shows a white blood cell count of 7.3 with 73% neutrophils. The hemoglobin is 9.9 and the platelet count is improving and is now 127,000. Potassium was low at two-point 4 in the AM and supplementation was ordered and recheck shows it to be 3.9. BUN is 10 with a creatinine of 0.43. Phosphorus was one-point 2 in the AM and following supplementation is now 3.0. Microbiology: Urine and blood cultures had no growth after 48 hours. She is coughing less today. She is much more alert and is talking with me today. She is able to follow commands today. PT is recommending further skilled therapy and 24 hour supervision due to impaired cognition and decreased safety awareness. She is eating much better. Objective: GENERAL: alert, talkative, able to follow commands today, no apparent distress, pleasant and appropriate today NECK: No JVD, supple, trachea midline LUNGS: coarse breath sounds and rales on the right and on the left laterally. No wheezing today. She is not tachypneic and she has no accessory muscle use. The rales on the R significantly improved after I had her take several deep breaths HEART: RRR, Normal S1 and S2, no rub, no gallop ABDOMEN: soft, NT, ND, BS present, no guarding with palpation EXTREMITIES: no edema, no cyanosis, no calf tenderness SKIN: No rashes, no breakdown NEUROLOGIC: no focal neurologic deficits - Physical Exam Vital Signs Temp Pulse Resp BP Pulse Ox 98.3 F 60 16 123/71 H 97 04/01/18 14:14 04/01/18 14:14 04/01/18 14:14 04/01/18 14:14 04/01/18 14:14 Oxygen Flow Rate (L/min) 1 Oxygen Delivery Method Nasal Cannula Weight: 110 lb 3.698 oz Body Mass Index (BMI) 21.6 Intake and Output for Last 24 Hours 03/30/18 03/31/18 04/01/18 23:59 23:59 23:59 Intake Total 2289 / 2289 2183 / 2183 1406 / 1406 Output Total 200 / 200 Balance 2089 / 2089 2183 / 2183 1406 / 1406 Microbiology Past 72 Hours 03/31/18 03:18 Respiratory Panel (PCR) - Final Mucosa - Nose Rhinovirus 03/28/18 17:05 Blood Culture - Preliminary Blood Culture (Wb) - Right Forearm No growth in 48 hours. 03/28/18 18:00 Urine Culture - Final Urine Catheter - Catheter Culture exhibits no growth. Laboratory Tests Past 24 Hrs 04/01/18 04/01/18 04/01/18 05:24 05:24 16:52 WBC 7.3 RBC 2.93 L Hgb 9.9 L Hct 30.6 L MCV 104.4 H MCH 33.8 H MCHC 32.4 RDW 14.5 RDW Differential 54.2 H Plt Count 127 L MPV 11.0 Immature Gran % (Auto) 0.400 Neut % (Auto) 73.2 H Lymph % (Auto) 17.8 L [place] % (Auto) 8.4 Eos % (Auto) 0.1 Baso % (Auto) 0.1 Absolute Neuts (auto) 5.3 Absolute Lymphs (auto) 1.30 Total Counted Not Reportable Sodium 143 145 Potassium 2.4 L* 3.9 Chloride 110 H 114 H Carbon Dioxide 24.0 25.0 Anion Gap 9 6 BUN 8 10 Creatinine 0.32 L 0.43 L Estim Creat Clear Calc 34.38 34.38 Est GFR (MDRD) Af Amer 258 182 Est GFR (MDRD) Non-Af 213 150 BUN/Creatinine Ratio 25.0 H 23.0 H Glucose 90 100 Calcium 6.8 L 7.1 L Phosphorus 1.2 L 3.0 Magnesium 1.8 Medical Necessity - Tobacco Use Smoking Status: Never smoker Assessment/Plan All Active Problems (Last Updated 03/28/18 @ 14:50 by Que Wallace DO) Acute respiratory failure with hypoxia (Acute) Aspiration pneumonia (Acute) Sepsis (Acute) Impressions 1. Acute hypoxic respiratory failure-chest CT unremarkable at admission but the CXR the following day showed a R basilar pneumonia. Possible aspiration? Possible viral URI? respiratory panel is Positive for rhinovirus 2. Suspected aspiration pneumonia. 3. Oral pharyngeal dysphagia-approved for mechanical soft diet with thin liquids under supervision - D/W ST today and will proceed with a MBS in the AM 5. Severe sepsis with suspected aspiration pneumonia and acute hypoxic respiratory failure 6. dementia with encephalopathy due to infection MBS in the AM Discontinue maintenance IV Transition to Augmentin-patient lists penicillin as an allergy but has been getting Unasyn without any adverse effects Change the Depakote to syrup....... Met with son Venu and he does not want his mother going to [facility]. He would prefer TCU but if this is not possible would like [facility] Anticipate DC within the next 48 hours Code Visit Inpatient E&M: 29810 Subs Hosp L2
[2018-04-02] VITALS (12 sets, daily range): BP systolic 98–159; BP diastolic 50–85; PULSE 74–100; RESP 18–36; TEMP 36.6–37; O2SAT 89–132
--- NOTE | 2018-04-02 01:42 | NURSING ---
Tylenol was not given to patient @ 2219 04/01/18 because pt refused. It would not let me undo the medication administration on the MAY.
[2018-04-02 06:08] LABS: Anion Gap 7 (5-15); BUN 10 mg/dL (7-18); BUN/Creat Ratio 31.1 RATIO (10-20); Calcium,Total 7.2 mg/dL (8.5-10.1); Chloride 116 mmol/L (98-107); Creatinine, Serum 0.32 mg/dL (0.55-1.02); EST Glomerular Filtration Rate 212 mL/min (>60); Est Glom Filt Rate - Afr Amer 256 mL/min (>60); Estimated Creatinine Clearance 34.38 ml/min; Glucose 76 mg/dL (74-106); Potassium 3.7 mmol/L (3.5-5.1); Sodium Level 147 mmol/L (136-145)
[2018-04-02] MEDS: Ipratropium/Albuterol Sulfate 3 ML AMPUL.NEB INHALATION ×2 (07:21→19:47)
--- NOTE | 2018-04-02 09:57 | CASEMGMT ---
Social Work Note LUANA received note that pt's son would like pt to go to [facility] at discharge. Per previous notes, pt's son was agreeable to send referral to [facility] and pre-cert has already been started. LUANA placed a call to pt's son Venu and informed him that this worker was informed yesterday to send referral to [facility] and because pt is medically ready pre-cert has already been submitted. LUANA informed Venu that pre-cert shouldn't really be stopped once it's been started as pt may get denied by insurance if the pre-cert gets stopped. Venu states that he was in Dr. Ndiaye's office yesterday for three hours getting IV antibiotics because he was sick and didn't have time to review the list. Venu confirms that he was agreeable to referral being sent to [facility] but states he had told CM that he still wanted to review the list of SNF. LUANA apologized to Venu for the misscommunication but that this worker was made aware to send referral to [facility]. Venu states that pt won't be going to [facility] and if pt can't get to [facility] then he will just take pt home. LUANA again reiterated that pre-cert has already been started and this worker is unsure if [facility] can even accept or if they have beds available. Venu states also I don't think it is right that TCU can't take patients right now because state is there. LUANA provided support to pt and informed him that it is unfortunate but that it is out of this worker's control that TCU isn't currently taking any patients. LUANA informed Venu that this worker can cancel pre-cert and can check on bed availability at [facility]. LUANA placed a call to [facility] and informed them to cancel referral. LUANA placed a call to Kelley at [facility] and faxed referral for pt. Plan: SNF pending acceptance and pre-cert Gemma Berry REGISTERED LAND SURVEYOR, ENGRAVER RUBBER
--- NOTE | 2018-04-02 10:17 | CASEMGMT ---
Social Work Note Per school admissions representative questions, pt has completed advanced directives but hasn't provided [facility] with copies but is able to bring in copies. Gemma Berry BRANCH ASSISTANT, CARPET FINISHING SUPERVISOR
--- NOTE | 2018-04-02 11:30 | CASEMGMT ---
Social Work Note SW received message from Kelley at [facility] stating she is able to accept pt and has submitted for pre-cert. LUANA placed a call to pt's son Venu and updated him on this. Plan: [facility] pending pre-cert Gemma Berry SOAKER SODA WORKER, ACUTE CARE CLINICAL NURSE SPECIALIST
--- NOTE | 2018-04-02 13:00 | RAD_ITS ---
STUDY: SWALLOWING STUDY REASON FOR EXAM: Female, 78 years old. Dysphagia. TECHNIQUE: The examination was performed with Speech Pathology in attendance. Under fluoroscopic observation, the patient ingested thin barium, thick barium, barium pudding, and barium coated cracker. FLUOROSCOPY TIME: 1:59 minutes/seconds. 1876 spot images were obtained. RADIOLOGIST INVOLVEMENT: Radiologist was present and providing direct supervision. COMPARISON: None. FINDINGS: The following was observed during swallowing of the various mixtures of barium: Thin Barium: There was no evidence of aspiration or laryngeal penetration. Thick Barium: There was no evidence of aspiration or laryngeal penetration. Barium Pudding: There was no evidence of aspiration or laryngeal penetration. Barium Coated Cracker: There was no evidence of aspiration or laryngeal penetration. RAD/Swallowing Function w/Video IMPRESSION: Normal tailored barium swallow study. No evidence of increased risk for aspiration. The swallow study findings were discussed with the patient by the speech pathologist at the conclusion of the examination. Please see speech pathology report for more information and recommendations. Electronically Signed: Antonio Farmer MD at 14:57 EST Tel [phone], Service support ,
--- NOTE | 2018-04-02 13:10 | SP.MBSS_ITS ---
PRIMARY / SECONDARY DIAGNOSIS: Dysphagia REFERRING PHYSICIAN: Dr. Hernandez CURRENT DIET: Mechanical Soft/[place] Thickened Liquids DENTITION: Present MENTAL STATUS: History of depression and confusion at baseline, with waxing and waning levels of orientation and inconsistent recognition of immediate family members; extremely tearful t/o MBS, requiring MAX encouragement from family and DATABASE ADMINISTRATION ASSOCIATE for minimal participation achieved. RESPIRATORY STATUS: oxygenating on 3L/min O2 via nasal cannula PREVIOUS MODIFIED BARIUM SWALLOW STUDY: n/a REASON FOR REFERRAL: Further assessment of swallow function under fluoroscopy d/t concern for aspiration as a potential contributing factor to current pneumonia presentation. MEDICAL HISTORY: Pt is a 78 y/o female with a limited past medical history of depression w/ pseudobulbar affect and confusion at baseline, with waxing and waning levels of orientation and inconsistent recognition of immediate family members. Pt presented to the ED 03/28/2018 after coughing up yellow phlegm; admitted w/ dx of acute respiratory failure with hypoxia, aspiration pneumonia, and sepsis. 03/28/[address] revealed no acute intrathoracic abnormality. 03/29/2018 CXR revealed patchy right lung base infiltrate new since prior study given the rapid onset; consider possible aspiration pneumonia and/or atelectasis or mucus plugging. STUDY FINDINGS: Patient participated in a Modified Barium Swallow (MBS) study on 04/02/2018. This study was recorded in the lateral view and images were sent to PACs for storage and radiology review. The following consistencies were presented to this patient for analysis of oropharyngeal swallow function: thin liquid and pudding., Results of the MBS are as follows: PENETRATION / ASPIRATION SCALE (TOMLIN): 1 = does not enter airway 2 = enters airway/above vocal folds/ejected 3 = enters airway/above vocal folds/not ejected 4 = enters airway/contacts vocal folds/ejected 5 = enters airway/contacts vocal folds/not ejected 6 = enters airway/below vocal folds/ejected 7 = enters airway/below vocal folds/not ejected despite effort 8 = enters airway/below vocal folds/no effort PENETRATION / ASPIRATION SCALE (SCORE): 1.Puddin 2.Thin liquid via cup: 1 3.Thin liquid via cup: 1 IMPRESSION: Moderate to severe oropharyngeal dysphagia ORAL PHASE CHARACTERIZED BY: LABIAL SEAL: escape beyond mid chin TONGUE CONTROL DURING BOLUS MANIPULATION: posterior escape of less than half of bolus BOLUS PREPARATION / MASTICATION: could not test BOLUS TRANSPORT / LINGUAL MOTION: slowed tongue motion ORAL RESIDUE: residue collection on oral structures PHARYNGEAL PHASE CHARACTERIZED BY: INITIATION OF PHARYNGEAL SWALLOW: bolus head at posterior laryngeal surface of epiglottis at first hyoid excursion SOFT PALATE ELEVATION: no bolus between soft palate and pharyngeal wall LARYNGEAL ELEVATION: minimal superior movement of thyroid cartilage/minimal approximation of arytenoids cartilage to epiglottic petiole ANTERIOR HYOID EXCURSION: partial anterior movement EPIGLOTTIC MOVEMENT: partial epiglottic inversion LARYNGEAL VESTIBULE CLOSURE AT HEIGHT OF SWALLOW: complete laryngeal vestibule closure with no air/contrast in laryngeal vestibule PHARYNGEAL STRIPPING WAVE: pharyngeal stripping wave present / diminished PHARYNGOESOPHAGEAL SEGMENT OPENING: partial distension and partial duration; partial obstruction of flow TONGUE BASE RETRACTION: narrow column of contrast between tongue base and posterior pharyngeal wall PHARYNGEAL RESIDUE: collection of residue within or on pharyngeal structures ESOPHAGEAL PHASE CHARACTERIZED BY: ESOPHAGEAL BOLUS CLEARANCE IN THE UPRIGHT POSITION: esophageal retention with retrograde flow through PES INTERPRETATION OF RESULTS: This patient presents with moderate to severe oropharyngeal dysphagia (R13.12). This study was limited in nature d/t patient?s behavioral/emotional issues, requiring MAX cueing and coaxing from DATABASE ADMINISTRATION ASSOCIATE and family members to consume the 3 boluses achieved during this MBS. Initially, oral phase was marked by oral holding w/ subsequent opening of mouth, allowing for entirety of bolus to spill anteriorly w/ no attempt at A-P bolus transfer or swallow onset swallow initiation. Adequate lingual control w/ 3 boluses that the patient did in fact swallow. Mild delay in oral phase swallow onset resulting in premature bolus loss. Oral residue retention post deglutition noted on tongue base and uvula. Pharyngeal phase primarily marked by delayed pharyngeal swallow onset timing resulting in suboptimal bolus location upon swallow onset (bolus head located at the posterior laryngeal surface of the epiglottis). Reduced laryngeal elevation & reduced anterior hyoid excursion resulting in insufficient epiglottic inversion. Pharyngeal residue retention lining the tongue base, epiglottis and posterior pharyngeal wall were attributed to reduced tongue base retraction and reduced posterior pharyngeal stripping wave action. Incomplete pharyngoesophageal segment opening noted although it did not significantly impact bolus clearance into the esophagus. Retrograde flow of contrast from the esophagus was noted to return upward into the pyriform sinuses. Although the patient did not demonstrate penetration/aspiration of this refluxed contents, she is at increased risk for aspiration given poor positioning typically utilized during PO intake. Noted patient demonstrated a weak cough following the initiation thin liquid bolus consumed, but this cough was not related to penetration/aspiration. Pt noted to have a relatively weak cough response, which is unlikely to be sufficient to expel aspirate from the trachea, should it occur. Although no penetration/aspiration occurred during this very limited study, aspiration cannot be ruled out during meals/meds, as fatigue, positioning and cognitive function can be contributing factors to aspiration. RECOMMENDATIONS: DIET TEXTURE RECOMMENDATIONS: Will recommend a mechanical soft textured, thin liquid diet. COMPENSATORY STRATEGIES RECOMMENDED: Supervision, reduced bolus volume, reduced rate of intake, seated upright at 90 degrees during PO intake, remain upright for 30-60 minutes post meal (GERD precaution), medications with applesauce, NEED FOR ADDITIONAL SKILLED SPEECH THERAPY SERVICES: This patient required continue skilled speech-language intervention targeting continued diet texture management and patient/caregiver education regarding current diet and compensatory strategy use. The Patient has demonstrated significant difficulty following all direction presented both verbally one step at a time, and visually, with very limited benefit for participation in skilled ST services for oropharyngeal strengthening. ADDITIONAL COMMENTS/RECOMMENDATIONS: Results and recommendations were discussed with the Patient and two family members present immediately following MBS completion. Images were reviewed w/ family to improve comprehension of deficits identified. Family verbalized understanding that risk for aspiration is present and they are in agreement with all recommendations and education provided. IMAGE COUNT: [id number]
[2018-04-02] MEDS: Acetaminophen 325 MG Tablet 650 MG PO (14:45)
[2018-04-02] MEDS: Amox/Clav 400mg/5ml Susp 875 MG PO (17:58)
[2018-04-02] MEDS: VILAZODONE HYDROCHLORIDE 20 MG TABLET PO (18:00)
--- NOTE | 2018-04-02 18:09 | PN_ITS ---
Patient Problems: Active and Suspected Problems (Last Updated 03/28/18 @ 14:50 by Que Wallace DO) Acute respiratory failure with hypoxia (Acute) Aspiration pneumonia (Acute) Sepsis (Acute) Subjective: All events of the past 24 hours of been reviewed. Modified barium swallow today showed no evidence of dysphagia She has been refusing her medications today. She is not talking and is non- cooperative today. Objective: GENERAL: alert, talkative, able to follow commands today, no apparent distress, pleasant and appropriate today NECK: No JVD, supple, trachea midline LUNGS: coarse breath sounds and rales on the right and on the left laterally. No wheezing today. She is not tachypneic and she has no accessory muscle use. HEART: RRR, Normal S1 and S2, no rub, no gallop ABDOMEN: soft, NT, ND, BS present, no guarding with palpation EXTREMITIES: no edema, no cyanosis, no calf tenderness SKIN: No rashes, no breakdown NEUROLOGIC: no focal neurologic deficits - Physical Exam Vital Signs Temp Pulse Resp BP Pulse Ox 98.6 F 90 22 H 98/50 L 92 04/02/18 16:21 04/02/18 16:21 04/02/18 16:21 04/02/18 16:21 04/02/18 16:21 Oxygen Flow Rate (L/min) 3 Oxygen Delivery Method Ambu-Bag Weight: 110 lb 3.698 oz Body Mass Index (BMI) 21.6 Intake and Output for Last 24 Hours 03/31/18 04/01/18 04/02/18 23:59 23:59 23:59 Intake Total 2183 / 2183 1406 / 1406 200 / 200 Output Total 200 / 200 Balance 2183 / 2183 1406 / 1406 0 / 0 Microbiology Past 72 Hours 03/31/18 03:18 Respiratory Panel (PCR) - Final Mucosa - Nose Rhinovirus 03/28/18 17:05 Blood Culture - Preliminary Blood Culture (Wb) - Right Forearm No growth in 48 hours. 03/28/18 18:00 Urine Culture - Final Urine Catheter - Catheter Culture exhibits no growth. Laboratory Tests Past 24 Hrs 04/02/18 05:20 Sodium 147 H Potassium 3.7 Chloride 116 H Carbon Dioxide 24.0 Anion Gap 7 BUN 10 Creatinine 0.32 L Estim Creat Clear Calc 34.38 Est GFR (MDRD) Af Amer 256 Est GFR (MDRD) Non-Af 212 BUN/Creatinine Ratio 31.1 H Glucose 76 Calcium 7.2 L Medical Necessity - Tobacco Use Smoking Status: Never smoker Assessment/Plan All Active Problems (Last Updated 03/28/18 @ 14:50 by Que Wallace DO) Acute respiratory failure with hypoxia (Acute) Aspiration pneumonia (Acute) Sepsis (Acute) Impressions 1. Acute hypoxic respiratory failure-chest CT unremarkable at admission but the CXR the following day showed a R basilar pneumonia. Possible aspiration? Possible viral URI? respiratory panel is Positive for rhinovirus 2. Suspected aspiration pneumonia.....but may be a viral pneumonia 3. Oral pharyngeal dysphagia-MBS is negative however, she gulps her liquids and her plant health care technician is feeding her when she is not at 90 degrees 5. Severe sepsis with suspected aspiration pneumonia and acute hypoxic respirat ory failure 6. 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
[2018-04-02] MEDS: guaiFENesin 1,200 MG Tablet 1200 MG PO (20:41)
[2018-04-03] VITALS (11 sets, daily range): BP systolic 96–143; BP diastolic 49–77; PULSE 73–90; RESP 16–36; TEMP 36.5–37.5; O2SAT 90–95
[2018-04-03] MEDS: Ipratropium/Albuterol Sulfate 3 ML AMPUL.NEB INHALATION ×2 (07:11→20:09)
[2018-04-03] MEDS: Amox/Clav 400mg/5ml Susp 875 MG PO ×2 (11:10→17:01)
[2018-04-03] MEDS: guaiFENesin 1,200 MG Tablet 1200 MG PO ×2 (11:10→21:38)
[2018-04-03] MEDS: Enoxaparin 40 MG/0.4 ML Syringe SC (11:10)
--- NOTE | 2018-04-03 11:25 | RAD_ITS ---
STUDY: X-RAY CHEST REASON FOR EXAM: Female, 78 years old. Shortness of breath and dyspnea. TECHNIQUE: Single AP portable view of the chest. COMPARISON: Comparison is made with prior study dated April 01, 2018. FINDINGS: Increasing right pleural effusion with right basilar atelectasis and/or infiltration. Since prior study, there has been an increase in the CHF. Blunting of the left concerning angle. Normal size heart. Normal mediastinum and jose. Normal visualized pulmonary arteries. There is atherosclerotic tortuosity of the aortic arch and descending thoracic aorta. There are diffuse degenerative changes of the visualized thoracic spine. Normal visualized ribs, clavicles, and shoulders. There is no demonstrated abnormality of the visualized soft tissue structures of the upper abdomen. RAD/Chest 1 View (Portable) IMPRESSION: Increasing right pleural effusion with underlying atelectasis and/or infiltration. Progressive CHF. Electronically Signed: Antonio Farmer MD at 13:59 EST Tel [phone], Service support ,
--- NOTE | 2018-04-03 11:59 | CASEMGMT ---
Social Work Note SW faxed updated clinicals to [facility]. Plan: [facility] pending pre-cert Gemma Berry POWERBUILDER, SALES SUPPORT ASSOCIATE
--- NOTE | 2018-04-03 12:23 | PCM.PROGNOTE ---
Patient Problems: Active and Suspected Problems (Last Updated 03/28/18 @ 14:50 by Que Wallace DO) Acute respiratory failure with hypoxia (Acute) Aspiration pneumonia (Acute) Sepsis (Acute) Subjective: All events of the past 24 hours of been reviewed. She remains afebrile. Respiratory rate has increased and the pulse ox has declined. Currently she is 88 to 90% on 3 L Blood pressure is stable. Chest x-ray was obtained today and per my review shows evidence of increased pulmonary vascular congestion with suspected bilateral pleural effusions. Difficult to tell on the right side because the right hemidiaphragm is elevated but it looks like there are BL effusions No complaints today. States she is hungry. Very alert today and conversant with me Objective: GENERAL: alert, talkative, able to follow commands today, no apparent distress, pleasant and appropriate today NECK: No JVD, supple, trachea midline LUNGS: rales on the right and on the left laterally. No wheezing today. She is tachypneic but, she has no accessory muscle use. Oxygen requirement has increased HEART: RRR, Normal S1 and S2, no rub, + gallop ABDOMEN: soft, NT, ND, BS present, no guarding with palpation EXTREMITIES: no edema, no cyanosis, no calf tenderness SKIN: No rashes, no breakdown NEUROLOGIC: no focal neurologic deficits - Physical Exam Vital Signs Temp Pulse Resp BP Pulse Ox 97.7 F L 90 36 H 128/63 H 90 04/03/18 09:05 04/03/18 09:18 04/03/18 09:05 04/03/18 09:05 04/03/18 09:05 Oxygen Flow Rate (L/min) 3 Oxygen Delivery Method Nasal Cannula Weight: 110 lb 3.698 oz Body Mass Index (BMI) 21.6 Intake and Output for Last 24 Hours 04/01/18 04/02/18 04/03/18 23:59 23:59 23:59 Intake Total 1406 / 1406 200 / 200 700 / 700 Output Total 200 / 200 Balance 1406 / 1406 0 / 0 700 / 700 Microbiology Past 72 Hours 03/28/18 17:05 Blood Culture - Final Blood Culture (Wb) - Right Forearm No growth in 5 days. 03/31/18 03:18 Respiratory Panel (PCR) - Final Mucosa - Nose Rhinovirus 03/28/18 18:00 Urine Culture - Final Urine Catheter - Catheter Culture exhibits no growth. Medical Necessity - Tobacco Use Smoking Status: Never smoker Assessment/Plan All Active Problems (Last Updated 03/28/18 @ 14:50 by Que Wallace DO) Acute respiratory failure with hypoxia (Acute) Aspiration pneumonia (Acute) Sepsis (Acute) Impressions 1. Acute hypoxic respiratory failure-chest CT unremarkable at admission but the CXR the following day showed a R basilar pneumonia. Possible aspiration? Possible viral URI? respiratory panel is Positive for rhinovirus 2. Suspected aspiration pneumonia.....but may be a viral pneumonia 3. Oral pharyngeal dysphagia-MBS is negative however, she gulps her liquids and her slab polisher is feeding her when she is not at 90 degrees 5. Severe sepsis with suspected aspiration pneumonia and acute hypoxic respiratory failure 6. 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 acute CHF Lasix 40 mg IV now and then 40 MG IV BID supplement potassium while on Lasix ECHO to evaluate for LV function recheck lab in the AM CBC, BNP, CMP, valproic acid level now pt is to sit upright at 90 degrees when she is eating or drinking. She was to remain upright at 90 degrees for at least 30 minutes after eating. Her fluid intake should be controlled and given on the spoon to prevent gulping. Instructed her slab polisher on how to feed and that she must be upright when she is eating and for at least 30 minutes after....She will give liquids on a sppo Code Visit Inpatient E&M: [id number] Subs Hosp L3
--- NOTE | 2018-04-03 12:26 | ECHOD_ITS ---
Reason For Study: CHF Procedure This was a 2D Doppler, Color Flow transthoracic echocardiogram. The study was technically difficult. Due to dementia, PT was unable to cooperate with exam, PT refused further imaging after apical images and began to get agitated. Left Ventricle Normal size and thickness. The estimated ejection fraction is 65 %. Stage 1 diastolic dysfunction. No regional wall motion abnormalities noted. Right Ventricle Normal size and thickness. Normal systolic function. Atria The left atrium is mildly enlarged. Normal right atrium. Normal atrial septum. Mitral Valve The mitral valve is structurally normal. No prolapse or stenosis seen. Mild mitral annular calcification extending into the posterior leaflet. Tricuspid Valve Normal tricuspid valve. Trivial tricuspid valve insufficiency. Right ventricular systolic pressure estimated to be 27 mmHg. Aortic Valve Normal aortic valve. Trisinus/trileaflet aortic valve. Pulmonic Valve Normal pulmonic valve. Great Vessels Normal aortic root. Normal arch. Normal inferior vena cava. Inferior vena cava collapse with sniff. Pericardium/Pleural No pericardial effusion. MMode/2D Measurements & Calculations LVIDd: 3.3 cm IVSd: 0.83 cm Ao root diam: 3.5 cm LVIDs: 2.2 cm LVPWd: 0.88 cm RVDd: 2.9 cm FS: 33.2 % LAV(MOD-bp): 58.9 ml LA A4 area: 20.8 cm2 LA dimension(2D): 3.8 cm LAV(MOD-bp) Indexed: 40.7 ml/m2 LAV(MOD-sp2): 57.7 ml LAV(MOD-sp4): 57.1 ml RA A4 area: 15.5 cm2 Doppler Measurements & Calculations MV E max jez: 62.7 cm/sec Lat Peak E' Jez: 8.8 cm/sec Med Peak E' Jez: 5.1 cm/sec MV A max jez: 103.9 cm/sec E/E' lat: 7.1 E/E' med: 12.4 MV E/A: 0.60 Ao V2 max: 121.4 cm/sec LV V1 max: 116.4 cm/sec PA V2 max: 101.9 cm/sec Ao max P.9 mmHg LV V1 max P.4 mmHg TR max jez: 237.7 cm/sec TR max P.6 mmHg Interpretation Summary The estimated ejection fraction is 65 %. Stage 1 diastolic dysfunction. The left atrium is mildly enlarged. Trivial tricuspid valve insufficiency. Right ventricular systolic pressure estimated to be 27 mmHg. The study was technically difficult. There is no comparison study available. Ordering Physician: Kailee Hernandez Referring Physician: Parker Ndiaye Chi Performed By: Verito Blackburn, PARTH, RVT
--- NOTE | 2018-04-03 12:30 | PN_ITS ---
Patient Problems: Active and Suspected Problems (Last Updated 03/28/18 @ 14:50 by Que Wallace DO) Acute respiratory failure with hypoxia (Acute) Aspiration pneumonia (Acute) Sepsis (Acute) Subjective: All events of the past 24 hours of been reviewed. She remains afebrile. Respiratory rate has increased and the pulse ox has declined. Currently she is 88 to 90% on 3 L Blood pressure is stable. Chest x-ray was obtained today and per my review shows evidence of increased pulmonary vascular congestion with suspected bilateral pleural effusions. Difficult to tell on the right side because the right hemidiaphragm is elevated but it looks like there are BL effusions No complaints today. States she is hungry. Very alert today and conversant with me Objective: GENERAL: alert, talkative, able to follow commands today, no apparent distress, pleasant and appropriate today NECK: No JVD, supple, trachea midline LUNGS: rales on the right and on the left laterally. No wheezing today. She is tachypneic but, she has no accessory muscle use. Oxygen requirement has increased HEART: RRR, Normal S1 and S2, no rub, + gallop ABDOMEN: soft, NT, ND, BS present, no guarding with palpation EXTREMITIES: no edema, no cyanosis, no calf tenderness SKIN: No rashes, no breakdown NEUROLOGIC: no focal neurologic deficits - Physical Exam Vital Signs Temp Pulse Resp BP Pulse Ox 97.7 F L 90 36 H 128/63 H 90 04/03/18 09:05 04/03/18 09:18 04/03/18 09:05 04/03/18 09:05 04/03/18 09:05 Oxygen Flow Rate (L/min) 3 Oxygen Delivery Method Nasal Cannula Weight: 110 lb 3.698 oz Body Mass Index (BMI) 21.6 Intake and Output for Last 24 Hours 04/01/18 04/02/18 04/03/18 23:59 23:59 23:59 Intake Total 1406 / 1406 200 / 200 700 / 700 Output Total 200 / 200 Balance 1406 / 1406 0 / 0 700 / 700 Microbiology Past 72 Hours 03/28/18 17:05 Blood Culture - Final Blood Culture (Wb) - Right Forearm No growth in 5 days. 03/31/18 03:18 Respiratory Panel (PCR) - Final Mucosa - Nose Rhinovirus 03/28/18 18:00 Urine Culture - Final Urine Catheter - Catheter Culture exhibits no growth. Medical Necessity - Tobacco Use Smoking Status: Never smoker Assessment/Plan All Active Problems (Last Updated 03/28/18 @ 14:50 by Que Wallace DO) Acute respiratory failure with hypoxia (Acute) Aspiration pneumonia (Acute) Sepsis (Acute) Impressions 1. Acute hypoxic respiratory failure-chest CT unremarkable at admission but the CXR the following day showed a R basilar pneumonia. Possible aspiration? Possible viral URI? respiratory panel is Positive for rhinovirus 2. Suspected aspiration pneumonia.....but may be a viral pneumonia 3. Oral pharyngeal dysphagia-MBS is negative however, she gulps her liquids and her babbitt spinner is feeding her when she is not at 90 degrees 5. Severe sepsis with suspected aspiration pneumonia and acute hypoxic respiratory failure 6. 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 acute CHF Lasix 40 mg IV now and then 40 MG IV BID supplement potassium while on Lasix ECHO to evaluate for LV function recheck lab in the AM CBC, BNP, CMP, valproic acid level now pt is to sit upright at 90 degrees when she is eating or drinking. She was to remain upright at 90 degrees for at least 30 minutes after eating. Her fluid i ntake should be controlled and given on the spoon to prevent gulping. Instructed her babbitt spinner on how to feed and that she must be upright when she is eating and for at least 30 minutes after....She will give liquids on a sppo Code Visit Inpatient E&M: [id number] Subs Hosp L3
[2018-04-03] MEDS: 0.9% NaCl Peripheral Flush Adult/Peds IV ×5 (12:50→19:24)
[2018-04-03] MEDS: Furosemide 40 MG/4 ML Vial IV ×2 (12:57→17:55)
[2018-04-03 13:06] LABS: Absolute Lymphocyte Count 1.27 X10^3/ul (0.83-4.51); Absolute Neutrophil Count 3.7 X10^3/uL (2.0-7.7); Basophil# 0.01 X10^3/uL; Basophil% 0.2 % (0-1); Eosinophil# 0.08 X10^3/uL; Eosinophils% 1.5 % (0-5); Hematocrit 32.5 % (37-47); Hemoglobin 10.4 g/dl (12.0-15.0); Lymphocyte # 1.27 X10^3/ul (4.0); Lymphocyte % 23.3 % (19-41); Mean Corpuscular Hgb 33.3 pg (27.0-32.0); Mean Corpuscular Volume 104.2 fL (81-99); Mean Platelet Vol. 10.3 fl (6.2-12.0); Monocyte# 0.39 X10^3/uL; Monocyte% 7.2 % (0-10); Neutrophil # 3.66 X10^3/uL (2.7-7.7); Neutrophil % 67.1 % (47-70); Platelet Count 189 K/mm3 (150-450); RBC Distribution Width CV 15.5 % (11.6-14.6); RBC Distribution Width SD 59.4 fl (35.1-43.9); Red Blood Count 3.12 M/mm3 (4.2-5.4); White Blood Count 5.5 K/mm3 (4.4-11.0)
[2018-04-03 13:07] LABS: POSITIVE COUNT NO; POSITIVE DIFFERENTIAL NO; POSITIVE MORPHOLOGY NO
[2018-04-03] MEDS: Potassium Chloride 10mEq/100mL 10 MEQ/100 ML IV.SOLN. 100 MEQ IV BOLUS ×2 (13:15→14:37)
[2018-04-03 13:26] LABS: Valproic Acid (Depakene) Level 48 ug/mL (50-100)
[2018-04-03 13:31] LABS: ALB/GLOB Ratio 0.4 RATIO (0.9-2.4); AST(SGOT) 26 U/L (15-37); Alanine Aminotransfer ALT/SGPT 21 U/L (13-56); Albumin, Serum 1.5 g/dL (3.2-5.0); Alkaline Phosphatase 74 U/L (45-117); Anion Gap 8 (5-15); BUN 12 mg/dL (7-18); Calcium,Total 7.8 mg/dL (8.5-10.1); Chloride 110 mmol/L (98-107); Creatinine, Serum 0.33 mg/dL (0.55-1.02); EST Glomerular Filtration Rate 204 mL/min (>60); Est Glom Filt Rate - Afr Amer 247 mL/min (>60); Estimated Creatinine Clearance 34.38 ml/min; Globulin 3.4 g/dL (2.2-4.2); Glucose 107 mg/dL (74-106); Magnesium 1.8 mg/dL (1.6-2.6); Phosphorus 1.8 mg/dL (2.5-4.9); Potassium 3.9 mmol/L (3.5-5.1); Protein, Total 4.9 g/dL (6.4-8.2); Sodium Level 143 mmol/L (136-145)
[2018-04-03 13:35] LABS: BNP,B-Type NATRIURETIC PEPTIDE 166.4 pg/mL (0-100)
--- NOTE | 2018-04-03 15:42 | CASEMGMT ---
Social Work Note SW placed a call to Kelley at [facility] and left a message informing her that this worker is leaving for the day and to call [facility] if pre-cert is obtained. Green sheet on chart and transportation form on chart in the event pre-cert is obtained. HENS completed, placed on pt's chart. Plan: [facility] pending pre-cert Gemma Berry SPRINKLING TRUCK DRIVER, SHORT ORDER COOK
--- NOTE | 2018-04-03 15:45 | PCA ---
TC received from Kelley at [facility] stating that she obtained pre-cert. Informed Dr. Hernandez who stated pt will not go today. Call placed to Kelley at [facility] informing her of this.
[2018-04-03] MEDS: VILAZODONE HYDROCHLORIDE 20 MG TABLET PO (17:03)
[2018-04-03] MEDS: Acetaminophen 325 MG Tablet 650 MG PO (18:16)
[2018-04-04] VITALS (13 sets, daily range): BP systolic 100–127; BP diastolic 52–64; PULSE 66–87; RESP 16–22; TEMP 36.3–36.7; O2SAT 92–98
[2018-04-04] MEDS: Ipratropium/Albuterol Sulfate 3 ML AMPUL.NEB INHALATION ×3 (07:19→19:50)
[2018-04-04] MEDS: Amox/Clav 400mg/5ml Susp 875 MG PO ×2 (08:19→17:32)
--- NOTE | 2018-04-04 09:52 | RAD_ITS ---
STUDY: X-RAY CHEST REASON FOR EXAM: Female, 78 years old. History of congestive heart failure. TECHNIQUE: PA and lateral views of the chest. COMPARISON: 04/04/2018, 9:52 AM. FINDINGS: There again is diffuse prominence of the pulmonary vasculature and interstitial markings slightly worsened the previous examination. Underlying infiltrate in right lung base is suspected. There is slightly increased right pleural effusion. Normal size heart. Normal mediastinum and jose. Normal visualized pulmonary arteries. There is atherosclerotic calcification of the aortic arch with tortuosity. The bony structures are unchanged. There is no demonstrated abnormality of the visualized soft tissue structures of the upper abdomen. RAD/Chest PA and Lateral IMPRESSION: 1. Findings consistent with congestive heart failure slightly worse than the previous exam. 2. Increased right pleural effusion. 3. Underlying infiltrate in right lung base cannot be excluded. Electronically Signed: Keegan Merrill MD at 14:04 EST Tel , Service support ,
[2018-04-04] MEDS: Furosemide 40 MG/4 ML Vial IV ×3 (10:34→22:01)
[2018-04-04] MEDS: Enoxaparin 40 MG/0.4 ML Syringe SC (10:34)
[2018-04-04] MEDS: guaiFENesin 1,200 MG Tablet 1200 MG PO ×2 (10:35→22:01)
[2018-04-04] MEDS: 0.9% NaCl Peripheral Flush Adult/Peds IV ×3 (10:37→22:01)
--- NOTE | 2018-04-04 12:42 | PN_ITS ---
Patient Problems: Active and Suspected Problems (Last Updated 03/28/18 @ 14:50 by Que Wallace DO) Acute respiratory failure with hypoxia (Acute) Aspiration pneumonia (Acute) Sepsis (Acute) Subjective: Day #8 antibiotics for aspiration pneumonia All events of the past 24 hours of been reviewed. Continues to be afebrile. But pressure is better controlled. Pulse ox ranges from 94-98% on a 4 L nasal cannula. Fluid balance on 04/03/2018 was -763. She was -478 overnight. Radiology: Chest x-ray is improved over yesterday but the lateral still shows pleural effusion. The pulmonary vascular congestion has improved. No CP and no c/o SOB. she is complaining that she is still coughing however it is much improved Objective: GENERAL: alert, talkative, able to follow commands today, no apparent distress, pleasant and appropriate today NECK: No JVD, supple, trachea midline LUNGS: rales have improved but, she still has diminished breath sounds in the bases, no tachypneic today and no conversational dyspnea or accessory muscle use HEART: RRR, Normal S1 and S2, no rub, no gallop ABDOMEN: soft, NT, ND, BS present, no guarding with palpation EXTREMITIES: no edema, no cyanosis, no calf tenderness SKIN: No rashes, no breakdown NEUROLOGIC: no focal neurologic deficits - Physical Exam Vital Signs Temp Pulse Resp BP Pulse Ox 98 F 72 20 H 100/55 L 94 04/04/18 09:25 04/04/18 10:24 04/04/18 10:24 04/04/18 09:25 04/04/18 10:24 Oxygen Flow Rate (L/min) 4 Oxygen Delivery Method Nasal Cannula Weight: 110 lb 3.698 oz Body Mass Index (BMI) 21.6 Intake and Output for Last 24 Hours 04/02/18 04/03/18 04/04/18 23:59 23:59 23:59 Intake Total 200 / 200 1137 / 1137 72 / 72 Output Total 200 / 200 1900 / 1900 550 / 550 Balance 0 / 0 -763 / -763 -478 / -478 Microbiology Past 72 Hours 03/28/18 17:05 Blood Culture - Final Blood Culture (Wb) - Right Forearm No growth in 5 days. Laboratory Tests Past 24 Hrs 04/03/18 04/03/18 04/03/18 12:35 12:35 12:35 WBC 5.5 RBC 3.12 L Hgb 10.4 L Hct 32.5 L MCV 104.2 H MCH 33.3 H MCHC 32.0 RDW 15.5 H RDW Differential 59.4 H Plt Count 189 MPV 10.3 Immature Gran % (Auto) 0.700 Neut % (Auto) 67.1 Lymph % (Auto) 23.3 [place] % (Auto) 7.2 Eos % (Auto) 1.5 Baso % (Auto) 0.2 Absolute Neuts (auto) 3.7 Absolute Lymphs (auto) 1.27 Total Counted Not Reportable Sodium 143 Potassium 3.9 Chloride 110 H Carbon Dioxide 25.0 Anion Gap 8 BUN 12 Creatinine 0.33 L Estim Creat Clear Calc 34.38 Est GFR (MDRD) Af Amer 247 Est GFR (MDRD) Non-Af 204 BUN/Creatinine Ratio 36.0 H Glucose 107 H Calcium 7.8 L Phosphorus 1.8 L Magnesium 1.8 Total Bilirubin 0.30 AST 26 ALT 21 Alkaline Phosphatase 74 Troponin I 0.021 B-Natriuretic Peptide 166.4 H Total Protein 4.9 L Albumin 1.5 L Globulin 3.4 Albumin/Globulin Ratio 0.4 L Valproic Acid 04/03/18 12:35 WBC RBC Hgb Hct MCV MCH MCHC RDW RDW Differential Plt Count MPV Immature Gran % (Auto) Neut % (Auto) Lymph % (Auto) [place] % (Auto) Eos % (Auto) Baso % (Auto) Absolute Neuts (auto) Absolute Lymphs (auto) Total Counted Sodium Potassium Chloride Carbon Dioxide Anion Gap BUN Creatinine Estim Creat Clear Calc Est GFR (MDRD) Af Amer Est GFR (MDRD) Non-Af BUN/Creatinine Ratio Glucose Calcium Phosphorus Magnesium Total Bilirubin AST ALT Alkaline Phosphatase Troponin I B-Natriuretic Peptide Total Protein Albumin Globulin Albumin/Globulin Ratio Valproic Acid 48 L Medical Necessity - Tobacco Use Smoking Status: Never smoker Assessment/Plan All Active Problems (Last Updated 03/28/18 @ 14:50 by Que Wallace DO) Acute respiratory failure with hypoxia (Acute) Aspiration pneumonia (Acute) Sepsis (Acute) Impressions 1. Acute hypoxic respiratory failure-chest CT unremarkable at admission but the CXR the following day showed a R basilar pneumonia. Possible aspiration? Possible viral URI? respiratory panel is Positive for rhinovirus 2. Suspected aspiration pneumonia.....but may be a viral pneumonia 3. Oral pharyngeal dysphagia-MBS is negative however, she gulps her liquids and her jde developer is feeding her when she is not at 90 degrees 5. Severe sepsis with suspected aspiration pneumonia and acute hypoxic respiratory failure 6. 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 acute diastolic congestive heart failure 8. Hypophosphatemia 9. Macrocytic anemia-stable 10. Thrombocytopenia-resolved Continue diuretics Finish 10 days of antibiotics Continue potassium supplementation Recheck BMP and H&H in the a.m. Possible discharge to long-term tomorrow Check a pulse ox on room air in the a.m. Code Visit Inpatient E&M: 91267 Subs Hosp L2
[2018-04-04 13:39] LABS: Anion Gap 7 (5-15); BUN 10 mg/dL (7-18); BUN/Creat Ratio 20.2 RATIO (10-20); Chloride 109 mmol/L (98-107); EST Glomerular Filtration Rate 129 mL/min (>60); Est Glom Filt Rate - Afr Amer 156 mL/min (>60); Estimated Creatinine Clearance 34.38 ml/min; Glucose 104 mg/dL (74-106); Magnesium 1.8 mg/dL (1.6-2.6); Phosphorus 2.8 mg/dL (2.5-4.9); Potassium 4.2 mmol/L (3.5-5.1); Sodium Level 144 mmol/L (136-145)
[2018-04-04] MEDS: VILAZODONE HYDROCHLORIDE 20 MG TABLET PO (17:29)
[2018-04-05 04:13] VITALS: BP 114/61; PULSE 73; RESP 20; TEMP 36.6; O2SAT 94
[2018-04-05 06:09] LABS: Hematocrit 35.2 % (37-47)
[2018-04-05 06:24] LABS: Anion Gap 6 (5-15); BUN 13 mg/dL (7-18); Calcium,Total 8.1 mg/dL (8.5-10.1); Chloride 104 mmol/L (98-107); Creatinine, Serum 0.52 mg/dL (0.55-1.02); EST Glomerular Filtration Rate 122 mL/min (>60); Est Glom Filt Rate - Afr Amer 148 mL/min (>60); Estimated Creatinine Clearance 34.38 ml/min; Glucose 85 mg/dL (74-106); Potassium 4.3 mmol/L (3.5-5.1); Sodium Level 140 mmol/L (136-145)
[2018-04-05 06:28] VITALS: O2SAT 84
[2018-04-05] MEDS: Furosemide 40 MG/4 ML Vial IV ×2 (06:33→12:51)
[2018-04-05] MEDS: 0.9% NaCl Peripheral Flush Adult/Peds IV ×2 (06:33→12:51)
[2018-04-05 07:11] VITALS: PULSE 79; RESP 16; O2SAT 96
[2018-04-05] MEDS: Ipratropium/Albuterol Sulfate 3 ML AMPUL.NEB INHALATION (07:11)
[2018-04-05] MEDS: Enoxaparin 40 MG/0.4 ML Syringe SC (09:28)
[2018-04-05] MEDS: guaiFENesin 1,200 MG Tablet 1200 MG PO (09:28)
[2018-04-05] MEDS: Amox/Clav 400mg/5ml Susp 875 MG PO (09:29)
[2018-04-05 09:39] VITALS: BP 134/64; PULSE 90; RESP 20; TEMP 36.8; O2SAT 92
--- NOTE | 2018-04-05 11:07 | PCM.PROGNOTE ---
Patient Problems: Active and Suspected Problems (Last Updated 03/28/18 @ 14:50 by Que Wallace DO) Acute respiratory failure with hypoxia (Acute) Aspiration pneumonia (Acute) Sepsis (Acute) Subjective: The patient is a 78-year-old female with a past medical history of depression, advance dementia and ?seizure disorder (on Depakote but, her son states it is for dementia?) who presented to the emergency room at [facility] on 03/28/2018 with complaints of cough productive of yellow phlegm and shortness of breath with exertion. Pulse ox dropped to 80% on a 6 L nasal cannula while still in the emergency department and she was placed on a nonrebreather. She was admitted and treated for suspected aspiration PNA. She was started on Unasyn. MBS negative for dysphagia but she eats lying down and gulps her liquids so she was placed on nectar thick by ST for this reason. She gets liquids on a spoon and is fed upright at 90 degrees. Respiratory panel was positive for rhinovirus. Urine and blood cultures had no growth. Chest x-ray on 04/04/2018 was consistent with congestive heart failure and increasing right pleural effusion. - Physical Exam Vital Signs Temp Pulse Resp BP Pulse Ox 98.2 F 90 20 H 134/64 H 92 04/05/18 09:39 04/05/18 09:39 04/05/18 09:39 04/05/18 09:39 04/05/18 09:39 Oxygen Flow Rate (L/min) 3.5 Oxygen Delivery Method Nasal Cannula Weight: 110 lb 3.698 oz Body Mass Index (BMI) 21.6 Intake and Output for Last 24 Hours 04/03/18 04/04/18 04/05/18 23:59 23:59 23:59 Intake Total 1137 / 1137 612 / 612 50 / 50 Output Total 1900 / 1900 3050 / 3050 800 / 800 Balance -763 / -763 -2438 / -2438 -750 / -750 Microbiology Past 72 Hours 03/28/18 17:05 Blood Culture - Final Blood Culture (Wb) - Right Forearm No growth in 5 days. Laboratory Tests Past 24 Hrs 04/04/18 04/05/18 04/05/18 12:58 05:50 05:50 Hgb 11.0 L Hct 35.2 L Sodium 144 140 Potassium 4.2 4.3 Chloride 109 H 104 Carbon Dioxide 28.0 30.0 Anion Gap 7 6 BUN 10 13 Creatinine 0.50 L 0.52 L Estim Creat Clear Calc 34.38 34.38 Est GFR (MDRD) Af Amer 156 148 Est GFR (MDRD) Non-Af 129 122 BUN/Creatinine Ratio 20.2 H 25.0 H Glucose 104 85 Calcium 8.0 L 8.1 L Phosphorus 2.8 Magnesium 1.8 Medical Necessity - Tobacco Use Smoking Status: Never smoker Assessment/Plan All Active Problems (Last Updated 03/28/18 @ 14:50 by Que Wallace DO) Acute respiratory failure with hypoxia (Acute) Aspiration pneumonia (Acute) Sepsis (Acute)
--- NOTE | 2018-04-05 12:10 | RAD_ITS ---
STUDY: X-RAY CHEST REASON FOR EXAM: Female, 78 years old. CHF TECHNIQUE: Single AP portable view of the chest. COMPARISON: Yesterday FINDINGS: Central pulmonary vascular congestion with bibasilar pleural parenchymal opacities are similar since the prior study. No pneumothorax. Normal size heart. Normal mediastinum and jose. There is prominence of the pulmonary hilar arteries and peripheral pulmonary arteries, consistent with congestive heart failure (CHF). There is atherosclerotic tortuosity of the aortic arch and descending thoracic aorta. No acute bony process. There is no demonstrated abnormality of the visualized soft tissue structures of the upper abdomen. RAD/Chest 1 View (Portable) IMPRESSION: 1. Stable CHF with bilateral pleural effusions and lower lobe edema or atelectasis. Electronically Signed: Yuriy Clark MD at 12:40 EST , Service support ,
--- NOTE | 2018-04-05 12:28 | TREXTCAR_ITS ---
- Diet 04/02/18 15:00 Diet: Regular Diet Food consistency:: Mechanical Soft/Ground Liquid Consistency:: thin liquids Dietary Modifications:: Mechanical Soft Diet Is pt able to select menu?: No Diet Comments: Supervision; seated upright at 90 degrees; meds crushed in applesauce, thin liquids must be given on a spoon, must remain upright for 30 minutes after eating - Routine Orders/Code Status Enema Type: Fleetz Enema Frequency: Daily PRN Suppository Type: Dulcolax 10mg Suppository Frequency: Daily PRN O2 Liters per Minute: 3-4 O2 Frequency: Continuous Keep PO Greater than or Equal to (%): 90 Routine Lab Work: - - BMP, MAG and BNP on 04/08/18 Code Status: Full Code - Therapies Weight Bearing: Full weight bearing Physical Therapy: Eval and Treat Occupational Therapy: Eval and Treat - Problem/Diagnosis (1) Severe sepsis Status: Acute Current Visit: Yes (2) Dementia Status: Chronic Current Visit: Yes (3) Encephalopathy due to infection Status: Acute Current Visit: Yes (4) Diastolic congestive heart failure Status: Acute Current Visit: Yes (5) Diastolic dysfunction Status: Chronic Current Visit: Yes (6) Hypophosphatemia Status: Acute Current Visit: Yes (7) Macrocytic anemia Status: Acute Comment: may be due to dilution Current Visit: Yes (8) Thrombocytopenia Status: Resolved Current Visit: Yes (9) Chronic renal failure, stage 3 (moderate) Status: Chronic Current Visit: Yes (10) Hypoalbuminemia Status: Acute Comment: severe, albumin is 1.5 and contributing to CHF Current Visit: Yes (11) Rhinovirus Status: Acute Current Visit: Yes (12) Atelectasis Status: Acute Current Visit: Yes (13) Acute respiratory failure with hypoxia Status: Acute Current Visit: Yes (14) Aspiration pneumonia Status: Suspected Current Visit: Yes - Allergies/Procedures Done in Hospital Allergies/Adverse Reactions: Allergies Penicillins Adverse Reaction (Verified 03/28/18 15:54) Other Procedures: 2-D Echocardiogram - Type of Care/Length of Stay Estimated LOS: Convalescent Care Less Than 30 days Type of Care Needed: Skilled Rehab Potential: Fair Prognosis: Fair - Additional Orders/Day of Discharge Additional Orders: Lasix 40 mg twice a day for 3 days and then decrease to once daily. Discontinue the Augmentin susp after 3 doses. Encourage her to use an Incentive Spirometer and to take deep breaths. She was able to ambulate 20 ft with a FWW but, requires a lot of encouragement. H&P will serve as current which was dated: 03/28/18 Day of Discharge: 04/05/18 - Dietary and Speech Recommendations Dietitian Recommendations/Changes: Will offer ensure pudding or magic cup w/ meals for increased nutrition if consumed - Follow Up Care Primary Care Physician: Parker Ndiaye Chi, MD [Primary Care Provider] - Please follow up with your Primary Care Physician in: Following discharge from retirement
--- NOTE | 2018-04-05 12:37 | PCM.DC.SUM ---
Discharge Date and Diagnosis - Problem List Patient Problems: Active and Suspected Problems (Last Updated 03/28/18 @ 14:50 by Que Wallace DO) Acute respiratory failure with hypoxia (Acute) Aspiration pneumonia (Suspected) Sepsis (Acute) Severe sepsis (Acute) Encephalopathy due to infection (Acute) Diastolic congestive heart failure (Acute) Hypophosphatemia (Acute) Macrocytic anemia (Acute) may be due to dilution Hypoalbuminemia (Acute) severe, albumin is 1.5 and contributing to CHF Rhinovirus (Acute) Atelectasis (Acute) Date of Admission: 03/28/18 Date of Discharge: 04/05/18 - Primary Discharge Diagnosis Active and Suspected Problems (Last Updated 03/28/18 @ 14:50 by Que Wallace DO) Acute respiratory failure with hypoxia (Acute) Aspiration pneumonia (Suspected) Severe sepsis (Acute) Encephalopathy due to infection (Acute) Diastolic congestive heart failure (Acute) Hypophosphatemia (Acute) Macrocytic anemia (Acute) may be due to dilution Hypoalbuminemia (Acute) severe, albumin is 1.5 and contributing to CHF Rhinovirus (Acute) Atelectasis (Acute) - Secondary Discharge Diagnosis Chronic Problems (Last Updated 03/28/18 @ 14:50 by Que Wallace DO) Dementia (Chronic) Diastolic dysfunction (Chronic) Chronic renal failure, stage 3 (moderate) (Chronic) Hospital Course and Treatment Imaging Results: 04/05/18 12:10 Chest 1 View (Portable) [RAD] Urgent Clinical Impression(s) from Imaging Studies Abdomen/Pelvis CT 03/28/18 08:52 IMPRESSION: No acute intra-abdominal or intrapelvic abnormality. Moderate aortoiliac atherosclerosis. Electronically Signed: Roseline Gaming MD at 10:39 EST Tel , Service support , Chest CT 03/28/18 08:52 IMPRESSION: No acute intrathoracic abnormality. Electronically Signed: Roseline Gaming MD at 11:26 EST Tel , Service support , Chest X-Ray 03/28/18 15:24 IMPRESSION: Patchy right lung base infiltrate new since prior study given the rapid onset since March 28, 2018 9:59 AM consider possible aspiration pneumonia and/or atelectasis or mucus plugging. N.B. : The above information has been verbally conveyed by Jennifer Aly MD to Lynette Huerta;[phone], RN, on 03/29/2018 08:47:11 (ET). Electronically Signed: Jennifer Aly MD at 8:40 EST Tel , Service support , Chest X-Ray 04/01/18 05:55 IMPRESSION: Increasing bilateral pleural effusions with underlying infiltration and/or atelectasis superimposed on CHF. Electronically Signed: Antonio Farmer MD at 14:15 EST Tel [phone], Service support , Videofluoroscopic Swallow 04/02/18 13:00 IMPRESSION: Normal tailored barium swallow study. No evidence of increased risk for aspiration. The swallow study findings were discussed with the patient by the speech pathologist at the conclusion of the examination. Please see speech pathology report for more information and recommendations. Electronically Signed: Antonio Farmer MD at 14:57 EST Tel [phone], Service support , Chest X-Ray 04/03/18 11:25 IMPRESSION: Increasing right pleural effusion with underlying atelectasis and/or infiltration. Progressive CHF. Electronically Signed: Antonio Farmer MD at 13:59 EST Tel [phone], Service support , Chest X-Ray 04/04/18 09:52 IMPRESSION: 1. Findings consistent with congestive heart failure slightly worse than the previous exam. 2. Increased right pleural effusion. 3. Underlying infiltrate in right lung base cannot be excluded. Electronically Signed: Keegan Merrill MD at 14:04 EST Tel , Service support , Chest X-Ray 04/05/18 12:10 IMPRESSION: 1. Stable CHF with bilateral pleural effusions and lower lobe edema or atelectasis. Electronically Signed: Yuriy Clark MD at 12:40 EST , Service support , Microbiology 03/28/18 17:05 Blood Culture (Wb) - Right Forearm Blood Culture - Final No growth in 5 days. 03/31/18 03:18 Mucosa - Nose Respiratory Panel (PCR) - Final Rhinovirus 03/28/18 18:00 Urine Catheter - Catheter Urine Culture - Final Culture exhibits no growth. 03/28/18 18:18 Urine Catheter - Catheter Streptococcus pneumoniae Antigen (M - Final 03/28/18 18:18 Urine Catheter - Catheter Legionella Antigen - Final Laboratory Results - last 24 hr 04/04/18 04/05/18 04/05/18 12:58 05:50 05:50 Hgb 11.0 L Hct 35.2 L Sodium 144 140 Potassium 4.2 4.3 Chloride 109 H 104 Carbon Dioxide 28.0 30.0 Anion Gap 7 6 BUN 10 13 Creatinine 0.50 L 0.52 L Estim Creat Clear Calc 34.38 34.38 Est GFR (MDRD) Af Amer 156 148 Est GFR (MDRD) Non-Af 129 122 BUN/Creatinine Ratio 20.2 H 25.0 H Glucose 104 85 Calcium 8.0 L 8.1 L Phosphorus 2.8 Magnesium 1.8 none Operations: None Procedures: 2-D Echocardiogram - Stage I diastolic dysfunction with a ejection fraction of 65%, mild left atrial enlargement, trivial TR and a normal right ventricular systolic pressure. Summary of Care Provided: The Patient is a 78-year-old female with a past medical history of depression and Dementi (takes Depakote for this) who presented to the emergency room at [facility] on 03/28/2018 with complaints of cough productive of yellow phlegm and shortness of breath with exertion. Pulse ox dropped to 80% on a 6 L nasal cannula while still in the emergency department and she was placed on a nonrebreather. She was confused and history was obtained from her son who is her caregiver. Significant lab in the emergency room included an elevated WBC count at 12.4 with 81% neutrophils. Platelets and hemoglobin were within normal limits. An ABG on a nonrebreather mask revealed a pH of 7.34, PCO2 of 45 and a PO2 of 211. BMP was unremarkable. Lactic acid was 1.8. Troponin was less than 0.015. CT scan of the chest, abdomen and pelvis were unremarkable. CXR appeared to have infiltrate in the RLL but, this was no apparent on the CT chest. Streptococcal and Legionella antigens in the urine were negative. Urine culture had no growth. Blood culture had no growth. She was placed on Unasyn for suspected aspiration pneumonia. A modified barium swallow showed no evidence of oral pharyngeal dysphagia. She does tend aspirate because she gulps her fluids when left to her own devices and tries to eat laying down. The WBC count decreased to normal with a normal differential on 04/03/18. she continued to require 4 LPM O2 and she developed rales. CXR showed pleural effusions and PVC. The albumin was 1.5 and she was third spacing fluids. She was started on IV Lasix q 8 hours. The repeat CXR prior to DC showed less PVC in the upper lobes but still shows atelectasis plus effusion in the lower lobes. Creatinine at discharge is 0.52, down from 0.72 at admission. A BNP on 04/03/18 was 166. A ECHO was a technically difficult study because the patient is unable to cooperate fully. It did show stage I diastolic dysfunction with an EF of 65%. There was no significant valvular heart disease and the right ventricular systolic pressure was within normal limits. On 04/05/18 she was alert and appropriate. She is much more cooperative. She was able to ambulate with a FWW 20 ft. She does not take deep breaths and really can not use the IS well. It is my hope that as we get her moving more and with further diuresis she will be able to be weaned off the O2. It will be difficult with the severe hypoalbuminemia to get fluid from the pleural space to the vascular space. Will need to watch the creat closely. She was discharged on 04/05/[facility] to [facility]. She will follow up with Dr. Ndiaye following discharge from [facility]. GENERAL: alert, talkative, able to follow commands today, no apparent distress, pleasant and appropriate today NECK: No JVD, supple, trachea midline LUNGS: rales have improved but, she still has very diminished breath sounds in the bases, not tachypneic today and no conversational dyspnea or accessory muscle use HEART: RRR, Normal S1 and S2, no rub, no gallop, no MM ABDOMEN: soft, NT, ND, BS present, no guarding with palpation EXTREMITIES: no edema, no cyanosis, no calf tenderness SKIN: No rashes, no breakdown NEUROLOGIC: no focal neurologic deficits This note was generated with [employer] dictation software. It may contain incorrect words, spelling, and punctuation that were not noted in checking the note before signing. Patient Problems: Active and Suspected Problems (Last Updated 03/28/18 @ 14:50 by Que Wallace DO) Acute respiratory failure with hypoxia (Acute) Aspiration pneumonia (Suspected) Sepsis (Acute) Severe sepsis (Acute) Encephalopathy due to infection (Acute) Diastolic congestive heart failure (Acute) Hypophosphatemia (Acute) Macrocytic anemia (Acute) may be due to dilution Hypoalbuminemia (Acute) severe, albumin is 1.5 and contributing to CHF Rhinovirus (Acute) Atelectasis (Acute) - Physical Exam Vital Signs Temp Pulse Resp BP Pulse Ox 98.2 F 90 20 H 134/64 H 92 04/05/18 09:39 04/05/18 09:39 04/05/18 09:39 04/05/18 09:39 04/05/18 09:39 Oxygen Flow Rate (L/min) 3.5 Oxygen Delivery Method Nasal Cannula Weight: 110 lb 3.698 oz Body Mass Index (BMI) 21.6 Intake and Output for Last 24 Hours 04/03/18 04/04/18 04/05/18 23:59 23:59 23:59 Intake Total 1137 / 1137 612 / 612 50 / 50 Output Total 1900 / 1900 3050 / 3050 1400 / 1400 Balance -763 / -763 -2438 / -2438 -1350 / -1350 Microbiology Past 72 Hours 03/28/18 17:05 Blood Culture - Final Blood Culture (Wb) - Right Forearm No growth in 5 days. Laboratory Tests Past 24 Hrs 04/04/18 04/05/18 04/05/18 12:58 05:50 05:50 Hgb 11.0 L Hct 35.2 L Sodium 144 140 Potassium 4.2 4.3 Chloride 109 H 104 Carbon Dioxide 28.0 30.0 Anion Gap 7 6 BUN 10 13 Creatinine 0.50 L 0.52 L Estim Creat Clear Calc 34.38 34.38 Est GFR (MDRD) Af Amer 156 148 Est GFR (MDRD) Non-Af 129 122 BUN/Creatinine Ratio 20.2 H 25.0 H Glucose 104 85 Calcium 8.0 L 8.1 L Phosphorus 2.8 Magnesium 1.8 Home Medications: Medications to take at Discharge Acetaminophen [Tylenol Tablet] 650 mg PO Q6H PRN PRN tablet 04/05/18 Albuterol Aerosols [Ventolin Aerosols] 2.5 mg INHALATION Q2H PRN PRN vial.neb. 04/05/18 Amox/Clav 400mg/5ml Susp [Augmentin Suspension 400mg/5ml] 875 mg PO BIDCM #3 po.syringe 04/05/18 Furosemide [Lasix] 40 mg PO BID #1 tablet 04/05/18 Potassium Chl Soln 1 dose PO BID #0 04/05/18 Valproate Sodium [Depakene] 500 mg PO Q8 udc 04/05/18 Vilazodone Hydrochloride [Viibryd] 20 mg PO 1700 tablet 04/05/18 Following Prescrptions Were Given to Patient: Furosemide [Lasix] 40 mg PO BID #1 tablet Primary Care Physician: Parker Ndiaye Chi, MD [Primary Care Provider] - Please follow up with your Primary Care Physician in: Following discharge from [facility] Disposition: Shelter facility Minutes spent on discharge:: 40 Patient Condition:: Stable Medical Necessity - Tobacco Use Smoking Status: Never smoker Meaningful Use Info Meaningful Use Diagnoses (Choose all that apply): CHF - CHF DANIEL/ARB ordered at discharge?: No Reason DANIEL/ARB not ordered?: Worsening renal dysfunctn Documented LVEF (%): 65 Code Visit Inpatient E&M: 31078 Disch Hosp
--- NOTE | 2018-04-05 12:42 | DS.PCM_ITS ---
Discharge Date and Diagnosis - Problem List Patient Problems: Active and Suspected Problems (Last Updated 03/28/18 @ 14:50 by Que Wallace DO) Acute respiratory failure with hypoxia (Acute) Aspiration pneumonia (Suspected) Sepsis (Acute) Severe sepsis (Acute) Encephalopathy due to infection (Acute) Diastolic congestive heart failure (Acute) Hypophosphatemia (Acute) Macrocytic anemia (Acute) may be due to dilution Hypoalbuminemia (Acute) severe, albumin is 1.5 and contributing to CHF Rhinovirus (Acute) Atelectasis (Acute) Date of Admission: 03/28/18 Date of Discharge: 04/05/18 - Primary Discharge Diagnosis Active and Suspected Problems (Last Updated 03/28/18 @ 14:50 by Que Wallace DO) Acute respiratory failure with hypoxia (Acute) Aspiration pneumonia (Suspected) Severe sepsis (Acute) Encephalopathy due to infection (Acute) Diastolic congestive heart failure (Acute) Hypophosphatemia (Acute) Macrocytic anemia (Acute) may be due to dilution Hypoalbuminemia (Acute) severe, albumin is 1.5 and contributing to CHF Rhinovirus (Acute) Atelectasis (Acute) - Secondary Discharge Diagnosis Chronic Problems (Last Updated 03/28/18 @ 14:50 by Que Wallace DO) Dementia (Chronic) Diastolic dysfunction (Chronic) Chronic renal failure, stage 3 (moderate) (Chronic) Hospital Course and Treatment Imaging Results: 04/05/18 12:10 Chest 1 View (Portable) [RAD] Urgent Clinical Impression(s) from Imaging Studies Abdomen/Pelvis CT 03/28/18 08:52 IMPRESSION: No acute intra-abdominal or intrapelvic abnormality. Moderate aortoiliac atherosclerosis. Electronically Signed: Roseline Gaming MD at 10:39 EST Tel , Service support , Chest CT 03/28/18 08:52 IMPRESSION: No acute intrathoracic abnormality. Electronically Signed: Roseline Gaming MD at 11:26 EST Tel , Service support , Chest X-Ray 03/28/18 15:24 IMPRESSION: Patchy right lung base infiltrate new since prior study given the rapid onset since March 28, 2018 9:59 AM consider possible aspiration pneumonia and/or atelectasis or mucus plugging. N.B. : The above information has been verbally conveyed by Jennifer Aly MD to Lynette Huetra;[phone], RN, on 03/29/2018 08:47:11 (ET). Electronically Signed: Jennifer Aly MD at 8:40 EST Tel , Service support , Chest X-Ray 04/01/18 05:55 IMPRESSION: Increasing bilateral pleural effusions with underlying infiltration and/or atelectasis superimposed on CHF. Electronically Signed: Antonio Farmer MD at 14:15 EST Tel [phone], Service support , Videofluoroscopic Swallow 04/02/18 13:00 IMPRESSION: Normal tailored barium swallow study. No evidence of increased risk for aspiration. The swallow study findings were discussed with the patient by the speech pathologist at the conclusion of the examination. Please see speech pathology report for more information and recommendations. Electronically Signed: Antonio Farmer MD at 14:57 EST Tel [phone], Service support , Chest X-Ray 04/03/18 11:25 IMPRESSION: Increasing right pleural effusion with underlying atelectasis and/or infiltration. Progressive CHF. Electronically Signed: Antonio Farmer MD at 13:59 EST Tel [phone], Service support , Chest X-Ray 04/04/18 09:52 IMPRESSION: 1. Findings consistent with congestive heart failure slightly worse than the previous exam. 2. Increased right pleural effusion. 3. Underlying infiltrate in right lung base cannot be excluded. Electronically Signed: Keegan Merrill MD at 14:04 EST Tel , Service support , Chest X-Ray 04/05/18 12:10 IMPRESSION: 1. Stable CHF with bilateral pleural effusions and lower lobe edema or atelectasis. Electronically Signed: Yuriy Clark MD at 12:40 EST , Service support , Microbiology 03/28/18 17:05 Blood Culture (Wb) - Right Forearm Blood Culture - Final No growth in 5 days. 03/31/18 03:18 Mucosa - Nose Respiratory Panel (PCR) - Final Rhinovirus 03/28/18 18:00 Urine Catheter - Catheter Urine Culture - Final Culture exhibits no growth. 03/28/18 18:18 Urine Catheter - Catheter Streptococcus pneumoniae Antigen (M - Final 03/28/18 18:18 Urine Catheter - Catheter Legionella Antigen - Final Laboratory Results - last 24 hr 04/04/18 04/05/18 04/05/18 12:58 05:50 05:50 Hgb 11.0 L Hct 35.2 L Sodium 144 140 Potassium 4.2 4.3 Chloride 109 H 104 Carbon Dioxide 28.0 30.0 Anion Gap 7 6 BUN 10 13 Creatinine 0.50 L 0.52 L Estim Creat Clear Calc 34.38 34.38 Est GFR (MDRD) Af Amer 156 148 Est GFR (MDRD) Non-Af 129 122 BUN/Creatinine Ratio 20.2 H 25.0 H Glucose 104 85 Calcium 8.0 L 8.1 L Phosphorus 2.8 Magnesium 1.8 none Operations: None Procedures: 2-D Echocardiogram - Stage I diastolic dysfunction with a ejection fraction of 65%, mild left atrial enlargement, trivial TR and a normal right ventricular systolic pressure. Summary of Care Provided: The Patient is a 78-year-old female with a past medical history of depression and Dementi (takes Depakote for this) who presented to the emergency room at [facility] on 03/28/2018 with complaints of cough productive of yellow phlegm and shortness of breath with exertion. Pulse ox dropped to 80% on a 6 L nasal cannula while still in the emergency department and she was placed on a nonrebreather. She was confused and history was obtained from her son who is her caregiver. Significant lab in the emergency room included an elevated WBC count at 12.4 with 81% neutrophils. Platelets and hemoglobin were within normal limits. An ABG on a nonrebreather mask revealed a pH of 7.34, PCO2 of 45 and a PO2 of 211. BMP was unremarkable. Lactic acid was 1.8. Troponin was less than 0.015. CT scan of the chest, abdomen and pelvis were unremarkable. CXR appeared to have infiltrate in the RLL but, this was no apparent on the CT chest. Streptococcal and Legionella antigens in the urine were negative. Urine culture had no growth. Blood culture had no growth. She was placed on Unasyn for suspected aspiration pneumonia. A modified barium swallow showed no evidence of oral pharyngeal dysphagia. She does tend aspirate because she gulps her fluids when left to her own devices and tries to eat laying down. The WBC count decreased to normal with a normal differential on 04/03/18. she continued to require 4 LPM O2 and she developed rales. CXR showed pleural effusions and PVC. The albumin was 1.5 and she was third spacing fluids. She was started on IV Lasix q 8 hours. The repeat CXR prior to DC showed less PVC in the upper lobes but still shows atelectasis plus effusion in the lower lobes. Creatinine at discharge is 0.52, down from 0.72 at admission. A BNP on 04/03/18 was 166. A ECHO was a technically difficult study because the patient is unable to cooperate fully. It did show stage I diastolic dysfunction with an EF of 65%. There was no significant valvular heart disease and the right ventricular systolic pressure was within normal limits. On 04/05/18 she was alert and appropriate. She is much more cooperative. She was able to ambulate with a FWW 20 ft. She does not take deep breaths and really can not use the IS well. It is my hope that as we get her moving more and with further diuresis she will be able to be weaned off the O2. It will be difficult with the severe hypoalbuminemia to get fluid from the pleural space to the vascular space. Will need to watch the creat closely. She was discharged on 04/05/18 to [facility]. She will follow up with Dr. Ndiaye following discharge from half-way. GENERAL: alert, talkative, able to follow commands today, no apparent distress, pleasant and appropriate today NECK: No JVD, supple, trachea midline LUNGS: rales have improved but, she still has very diminished breath sounds in the bases, not tachypneic today and no conversational dyspnea or accessory muscle use HEART: RRR, Normal S1 and S2, no rub, no gallop, no MM ABDOMEN: soft, NT, ND, BS present, no guarding with palpation EXTREMITIES: no edema, no cyanosis, no calf tenderness SKIN: No rashes, no breakdown NEUROLOGIC: no focal neurologic deficits This note was generated with [employer] dictation software. It may contain incorrect words, spelling, and punctuation that were not noted in checking the note before signing. Patient Problems: Active and Suspected Problems (Last Updated 03/28/18 @ 14:50 by Que Wallace DO) Acute respiratory failure with hypoxia (Acute) Aspiration pneumonia (Suspected) Sepsis (Acute) Severe sepsis (Acute) Encephalopathy due to infection (Acute) Diastolic congestive heart failure (Acute) Hypophosphatemia (Acute) Macrocytic anemia (Acute) may be due to dilution Hypoalbuminemia (Acute) severe, albumin is 1.5 and contributing to CHF Rhinovirus (Acute) Atelectasis (Acute) - Physical Exam Vital Signs Temp Pulse Resp BP Pulse Ox 98.2 F 90 20 H 134/64 H 92 04/05/18 09:39 04/05/18 09:39 04/05/18 09:39 04/05/18 09:39 04/05/18 09:39 Oxygen Flow Rate (L/min) 3.5 Oxygen Delivery Method Nasal Cannula Weight: 110 lb 3.698 oz Body Mass Index (BMI) 21.6 Intake and Output for Last 24 Hours 04/03/18 04/04/18 04/05/18 23:59 23:59 23:59 Intake Total 1137 / 1137 612 / 612 50 / 50 Output Total 1900 / 1900 3050 / 3050 1400 / 1400 Balance -763 / -763 -2438 / -2438 -1350 / -1350 Microbiology Past 72 Hours 03/28/18 17:05 Blood Culture - Final Blood Culture (Wb) - Right Forearm No growth in 5 days. Laboratory Tests Past 24 Hrs 04/04/18 04/05/18 04/05/18 12:58 05:50 05:50 Hgb 11.0 L Hct 35.2 L Sodium 144 140 Potassium 4.2 4.3 Chloride 109 H 104 Carbon Dioxide 28.0 30.0 Anion Gap 7 6 BUN 10 13 Creatinine 0.50 L 0.52 L Estim Creat Clear Calc 34.38 34.38 Est GFR (MDRD) Af Amer 156 148 Est GFR (MDRD) Non-Af 129 122 BUN/Creatinine Ratio 20.2 H 25.0 H Glucose 104 85 Calcium 8.0 L 8.1 L Phosphorus 2.8 Magnesium 1.8 Home Medications: Medications to take at Discharge Acetaminophen [Tylenol Tablet] 650 mg PO Q6H PRN PRN tablet 04/05/18 Albuterol Aerosols [Ventolin Aerosols] 2.5 mg INHALATION Q2H PRN PRN vial.neb. 04/05/18 Amox/Clav 400mg/5ml Susp [Augmentin Suspension 400mg/5ml] 875 mg PO BIDCM #3 po.syringe 04/05/18 Furosemide [Lasix] 40 mg PO BID #1 tablet 04/05/18 Potassium Chl Soln 1 dose PO BID #0 04/05/18 Valproate Sodium [Depakene] 500 mg PO Q8 udc 04/05/18 Vilazodone Hydrochloride [Viibryd] 20 mg PO 1700 tablet 04/05/18 Following Prescrptions Were Given to Patient: Furosemide [Lasix] 40 mg PO BID #1 tablet Primary Care Physician: Parker Ndiaye Chi, MD [Primary Care Provider] - Please follow up with your Primary Care Physician in: Following discharge from half-way Disposition: Snf facility Minutes spent on discharge:: 40 Patient Condition:: Stable Medical Necessity - Tobacco Use Smoking Status: Never smoker Meaningful Use Info Meaningful Use Diagnoses (Choose all that apply): CHF - CHF DANIEL/ARB ordered at discharge?: No Reason DANIEL/ARB not ordered?: Worsening renal dysfunctn Documented LVEF (%): 65 Code Visit Inpatient E&M: [id number] Disch Hosp
--- NOTE | 2018-04-05 14:17 | NURSING ---
Report called to Ashleigh at [facility] at this time.
--- NOTE | 2018-04-05 15:07 | NURSING ---
Ambulance here to transport pt to [facility] at this time. 3 medication bottles returned to pt's son prior to discharge.
== END 2018-04-05 15:10 | disposition skilled nursing facility (03) | DRG 871 ==
LOC: ED 09:28 → MS3 15:08
PROVIDERS: Hospitalist; Emergency Provider Emergency Medicine; Family Provider Family Medicine Geriatric Medicine; PCP Family Medicine Geriatric Medicine; Visit Provider Internal Medicine
DX: A41.9 Sepsis, unspecified organism (principal); J96.01 Acute respiratory failure with hypoxia; J69.0 Pneumonitis due to inhalation of food and vomit; I50.31 Acute diastolic (congestive) heart failure; G93.40 Encephalopathy, unspecified; J98.11 Atelectasis; R65.20 Severe sepsis without septic shock; E83.39 Other disorders of phosphorus metabolism; E88.09 Other disorders of plasma-protein metabolism, not elsewhere classified; D53.9 Nutritional anemia, unspecified; F03.90 Unspecified dementia, unspecified severity, without behavioral disturbance, psychotic disturbance, mood disturbance, and anxiety; N18.3 Chronic kidney disease, stage 3 (moderate); F32.9 Major depressive disorder, single episode, unspecified; B97.89 Other viral agents as the cause of diseases classified elsewhere
CPT/HCPCS: 36415; 36600; 71045; 71046; 71250; 74176; 74230; 80048; 80053; 80164; 81002; 82140; 82306; 82803; 83605; 83735; 83880; 84100; 84134; 84484; 85014; 85018; 85025; 87040; 87086; 87449; 87633; 92526; 92610; 92611; 93005; 93306; 94640; 94668; 94762; 97163; 97165; 97530; 97535; 97802; 99283; J7030; J7040; J7050; A4216; J0295; J1940

== ENCOUNTER → 2018-05-07 10:14 | Outpatient (CLI) | payer MEDICARE, SELFPAY ==
[2018-03-28 15:32] VITALS: BMI 21.6
--- NOTE | 2018-05-07 10:20 | RAD_ITS ---
STUDY: X-RAY CHEST REASON FOR EXAM: Female, 78 years old. History of aspiration pneumonia. TECHNIQUE: PA and lateral views of the chest. COMPARISON: Comparison is made with prior study dated April 05, 2018. FINDINGS: Minimal residual increased markings are seen in the left lower lobe. The right lung is clear. There is no demonstrated pleural abnormality. Normal size heart. Normal mediastinum and jose. Normal visualized pulmonary arteries. There is atherosclerotic calcification of the aortic arch with tortuosity. There is demineralization of the osseous structures. Increased kyphosis. Normal visualized ribs, clavicles, and shoulders. There is no demonstrated abnormality of the visualized soft tissue structures of the upper abdomen. RAD/Chest PA and Lateral IMPRESSION: Mild residual changes at the left lung base. Electronically Signed: Antonio Farmer MD at 11:18 EST , Service support ,
== END ==
PROVIDERS: Family Provider Family Medicine Geriatric Medicine; PCP Family Medicine Geriatric Medicine; Referring Provider Family Medicine Geriatric Medicine; Visit Provider Family Medicine Geriatric Medicine
DX: J69.0 Pneumonitis due to inhalation of food and vomit (principal)
CPT/HCPCS: 71046

== ENCOUNTER → 2018-05-20 17:13 | Outpatient (CLI) | payer MEDICARE, SELFPAY ==
[2018-03-28 15:32] VITALS: BMI 21.6
--- NOTE | 2018-05-20 17:30 | RAD_ITS ---
STUDY: X-RAY - LUMBAR SPINE REASON FOR EXAM: Female, 78 years old. low back pain starting this morning, no injury TECHNIQUE: 3 view(s) of the lumbar spine were obtained. COMPARISON: None FINDINGS: Normal lumbar lordosis. There is multilevel endplate spondylosis of the lumbar vertebrae. There is multi-level degenerative disc disease with multi-level disc space narrowing. The soft tissue structures are unremarkable. RAD/Lumbar Spine 2 or 3 Views IMPRESSION: Degenerative changes of the spine. Electronically Signed: Roseline Gaming MD at 13:43 EST Tel , Service support ,
== END ==
PROVIDERS: Family Provider Family Medicine Geriatric Medicine; PCP Family Medicine Geriatric Medicine; Referring Provider Family Medicine Geriatric Medicine; Visit Provider Family Medicine Geriatric Medicine
DX: M54.5 Low back pain (principal); N39.0 Urinary tract infection, site not specified
CPT/HCPCS: 72100; 87086; 87088

== ENCOUNTER → 2018-05-27 16:01 | Outpatient (CLI) | payer MEDICARE, SELFPAY ==
[2018-03-28 15:32] VITALS: BMI 21.6
[2018-05-27 17:05] LABS: Absolute Neutrophil Count 7.5 X10^3/uL (2.0-7.7); Basophil# 0.01 X10^3/uL; Basophil% 0.1 % (0-1); Eosinophil# 0.18 X10^3/uL; Eosinophils% 1.5 % (0-5); Hematocrit 40.1 % (37-47); Hemoglobin 12.9 g/dl (12.0-15.0); Mean Corp Hgb Conc 32.2 g/gl (32-36); Mean Corpuscular Hgb 34.4 pg (27.0-32.0); Mean Corpuscular Volume 106.9 fL (81-99); Mean Platelet Vol. 10.9 fl (6.2-12.0); Monocyte# 1.25 X10^3/uL; Monocyte% 10.4 % (0-10); Neutrophil # 7.52 X10^3/uL (2.7-7.7); Neutrophil % 62.5 % (47-70); Platelet Count 272 K/mm3 (150-450); RBC Distribution Width CV 13.3 % (11.6-14.6); RBC Distribution Width SD 50.8 fl (35.1-43.9); Red Blood Count 3.75 M/mm3 (4.2-5.4)
[2018-05-27 17:08] LABS: POSITIVE COUNT NO; POSITIVE DIFFERENTIAL NO; POSITIVE MORPHOLOGY NO
[2018-05-27 17:47] LABS: Vitamin D,25 Hydroxy 39.9 ng/mL (29.95-100.01)
[2018-05-27 17:48] LABS: ALB/GLOB Ratio 0.5 RATIO (0.9-2.4); AST(SGOT) 15 U/L (15-37); Alanine Aminotransfer ALT/SGPT 10 U/L (13-56); Albumin, Serum 2.3 g/dL (3.2-5.0); Alkaline Phosphatase 86 U/L (45-117); Anion Gap 13 (5-15); BUN 26 mg/dL (7-18); BUN/Creat Ratio 32.7 RATIO (10-20); Calcium,Total 9.1 mg/dL (8.5-10.1); Chloride 107 mmol/L (98-107); Cholesterol 177 mg/dL (200); EST Glomerular Filtration Rate 75 mL/min (>60); Est Glom Filt Rate - Afr Amer 90 mL/min (>60); Globulin 4.6 g/dL (2.2-4.2); Glucose 92 mg/dL (74-106); High Density Lipoprotein 38 mg/dL; Protein, Total 6.9 g/dL (6.4-8.2); Sodium Level 143 mmol/L (136-145); Thyroid Stim Hormone (TSH) 1.88 uIU/mL (0.358-3.74); Triglycerides 107 mg/dL; Very Low Density Lipoprotein 21 mg/dL (5-40)
== END ==
PROVIDERS: Family Provider Family Medicine Geriatric Medicine; PCP Family Medicine Geriatric Medicine; Visit Provider Family Medicine Geriatric Medicine
DX: R53.83 Other fatigue (principal); E55.9 Vitamin D deficiency, unspecified; E78.5 Hyperlipidemia, unspecified
CPT/HCPCS: 36415; 80053; 80061; 82306; 84443; 85025

== ENCOUNTER → 2018-07-07 15:13 | Outpatient (CLI) | payer MEDICARE, SELFPAY ==
[2018-03-28 15:32] VITALS: BMI 21.6
--- NOTE | 2018-07-07 16:55 | RAD_ITS ---
STUDY: X-RAY - ABDOMEN/PELVIS REASON FOR EXAM: Female, 78 years old. CONSTIPATION PT HAD ALZHEIMER TECHNIQUE: Two AP supine views of the abdomen and pelvis. COMPARISON: None. FINDINGS: There is subtle blunting of left costophrenic angle that may represent atelectasis versus small effusion. There is an unremarkable bowel gas pattern. Though there is moderate stool, there is no evidence of fecal impaction or obstruction. There is no demonstrated free abdominal air. The visualized liver, spleen and kidneys are grossly normal in size and morphology. Vascular calcifications are noted particularly splenic arterial calcifications. Normal soft tissue structures. Bony demineralization noted. Degenerative spondylosis of the spine. There is been prior left hip arthroplasty. There is severe right hip osteoarthritis. RAD/Abd Inc Decub and/or Erect IMPRESSION: There is moderate stool in the colon but no evidence of fecal impaction or obstruction. Electronically Signed: Olga Claudio MD at 17:47 EDT , Service support ,
[2018-07-07 17:38] LABS: Absolute Lymphocyte Count 2.95 X10^3/ul (0.83-4.51); Absolute Neutrophil Count 6.2 X10^3/uL (2.0-7.7); Basophil# 0.02 X10^3/uL; Basophil% 0.2 % (0-1); Eosinophil# 0.02 X10^3/uL; Eosinophils% 0.2 % (0-5); Hematocrit 42.4 % (37-47); Hemoglobin 13.7 g/dl (12.0-15.0); Lymphocyte # 2.95 X10^3/ul (4.0); Lymphocyte % 29.4 % (19-41); Mean Corp Hgb Conc 32.3 g/gl (32-36); Mean Corpuscular Hgb 33.3 pg (27.0-32.0); Mean Corpuscular Volume 102.9 fL (81-99); Mean Platelet Vol. 12.6 fl (6.2-12.0); Monocyte# 0.83 X10^3/uL; Monocyte% 8.3 % (0-10); Neutrophil # 6.19 X10^3/uL (2.7-7.7); Neutrophil % 61.6 % (47-70); Platelet Count 177 K/mm3 (150-450); RBC Distribution Width CV 13.6 % (11.6-14.6); RBC Distribution Width SD 50.3 fl (35.1-43.9); Red Blood Count 4.12 M/mm3 (4.2-5.4)
[2018-07-07 17:52] LABS: POSITIVE COUNT NO; POSITIVE DIFFERENTIAL NO; POSITIVE MORPHOLOGY NO
[2018-07-07 18:15] LABS: Anion Gap 9 (5-15); BUN 30 mg/dL (7-18); BUN/Creat Ratio 32.1 RATIO (10-20); Calcium,Total 9.7 mg/dL (8.5-10.1); Chloride 104 mmol/L (98-107); Creatinine, Serum 0.94 mg/dL (0.55-1.02); EST Glomerular Filtration Rate 62 mL/min (>60); Est Glom Filt Rate - Afr Amer 75 mL/min (>60); Glucose 102 mg/dL (74-106); Potassium 4.1 mmol/L (3.5-5.1); Sodium Level 139 mmol/L (136-145)
== END ==
LOC: POLAB3 15:13 → RAD 16:53
PROVIDERS: Family Provider Family Medicine Geriatric Medicine; PCP Family Medicine Geriatric Medicine; Referring Provider Family Medicine Geriatric Medicine; Visit Provider Family Medicine Geriatric Medicine
DX: N39.0 Urinary tract infection, site not specified (principal); K56.41 Fecal impaction; E86.0 Dehydration
CPT/HCPCS: 36415; 74019; 80048; 85025; 87086; 87088

== ENCOUNTER → 2018-08-11 12:22 | Outpatient (CLI) | payer MEDICARE, SELFPAY ==
[2018-03-28 15:32] VITALS: BMI 21.6
--- NOTE | 2018-08-11 12:39 | RAD_ITS ---
STUDY: X-RAY - ABDOMEN/PELVIS REASON FOR EXAM: Female, 78 years old. Diffuse abdominal pain TECHNIQUE: AP supine and upright views of the abdomen and pelvis. COMPARISON: None. FINDINGS: Normal visualized lung bases. There is an unremarkable bowel gas pattern. There is no demonstrated free abdominal air. The visualized liver, spleen and kidneys are grossly normal in size and morphology. Normal soft tissue structures. There are diffuse degenerative changes of the visualized lumbar spine, and pelvis. RAD/Abdomen Single View IMPRESSION: No acute findings Electronically Signed: Sekou Spencer MD at 13:50 EDT , Service support ,
[2018-08-11 13:13] LABS: Absolute Lymphocyte Count 2.73 X10^3/ul (0.83-4.51); Absolute Neutrophil Count 4.9 X10^3/uL (2.0-7.7); Basophil# 0.01 X10^3/uL; Basophil% 0.1 % (0-1); Eosinophil# 0.01 X10^3/uL; Eosinophils% 0.1 % (0-5); Hematocrit 43.6 % (37-47); Hemoglobin 13.8 g/dl (12.0-15.0); Lymphocyte # 2.73 X10^3/ul (4.0); Lymphocyte % 32.7 % (19-41); Mean Corp Hgb Conc 31.7 g/gl (32-36); Mean Corpuscular Hgb 32.8 pg (27.0-32.0); Mean Corpuscular Volume 103.6 fL (81-99); Mean Platelet Vol. 12.2 fl (6.2-12.0); Monocyte# 0.71 X10^3/uL; Monocyte% 8.5 % (0-10); Neutrophil # 4.86 X10^3/uL (2.7-7.7); Neutrophil % 58.4 % (47-70); Platelet Count 185 K/mm3 (150-450); RBC Distribution Width CV 13.5 % (11.6-14.6); Red Blood Count 4.21 M/mm3 (4.2-5.4); White Blood Count 8.3 K/mm3 (4.4-11.0)
[2018-08-11 13:14] LABS: POSITIVE COUNT NO; POSITIVE DIFFERENTIAL NO; POSITIVE MORPHOLOGY NO
[2018-08-11 13:29] LABS: ALB/GLOB Ratio 0.7 RATIO (0.9-2.4); AST(SGOT) 20 U/L (15-37); Alanine Aminotransfer ALT/SGPT 18 U/L (13-56); Albumin, Serum 3.1 g/dL (3.2-5.0); Alkaline Phosphatase 76 U/L (45-117); Anion Gap 8 (5-15); BUN 22 mg/dL (7-18); BUN/Creat Ratio 29.5 RATIO (10-20); Calcium,Total 9.6 mg/dL (8.5-10.1); Chloride 106 mmol/L (98-107); Creatinine, Serum 0.74 mg/dL (0.55-1.02); EST Glomerular Filtration Rate 80 mL/min (>60); Est Glom Filt Rate - Afr Amer 97 mL/min (>60); Globulin 4.5 g/dL (2.2-4.2); Glucose 81 mg/dL (74-106); Potassium 3.6 mmol/L (3.5-5.1); Protein, Total 7.6 g/dL (6.4-8.2); Sodium Level 141 mmol/L (136-145)
== END ==
LOC: POLAB3 12:23 → RAD 12:38
PROVIDERS: Family Provider Family Medicine Geriatric Medicine; PCP Family Medicine Geriatric Medicine; Referring Provider Family Medicine Geriatric Medicine; Visit Provider Family Medicine Geriatric Medicine
DX: R10.9 Unspecified abdominal pain (principal)
CPT/HCPCS: 36415; 74018; 80053; 85025

== ENCOUNTER → 2018-08-13 15:05 | Outpatient (CLI) | payer MEDICARE, SELFPAY ==
[2018-03-28 15:32] VITALS: BMI 21.6
== END ==
PROVIDERS: Family Provider Family Medicine Geriatric Medicine; PCP Family Medicine Geriatric Medicine; Visit Provider Family Medicine Geriatric Medicine
DX: R19.7 Diarrhea, unspecified (principal)
CPT/HCPCS: 36415; 82274; 83630; 87177; 87209; 87493

== ENCOUNTER → 2018-08-26 09:07 | Outpatient (CLI) | payer MEDICARE, SELFPAY ==
[2018-03-28 15:32] VITALS: BMI 21.6
[2018-08-26 13:04] LABS: Absolute Lymphocyte Count 2.52 X10^3/ul (0.83-4.51); Absolute Neutrophil Count 3.8 X10^3/uL (2.0-7.7); Basophil# 0.01 X10^3/uL; Basophil% 0.1 % (0-1); Eosinophil# 0.01 X10^3/uL; Eosinophils% 0.1 % (0-5); Hematocrit 43.2 % (37-47); Hemoglobin 13.8 g/dl (12.0-15.0); Lymphocyte # 2.52 X10^3/ul (4.0); Mean Corp Hgb Conc 31.9 g/gl (32-36); Mean Corpuscular Hgb 32.5 pg (27.0-32.0); Mean Corpuscular Volume 101.9 fL (81-99); Mean Platelet Vol. 12.2 fl (6.2-12.0); Monocyte# 0.64 X10^3/uL; Monocyte% 9.1 % (0-10); Neutrophil % 54.4 % (47-70); Platelet Count 169 K/mm3 (150-450); RBC Distribution Width CV 13.4 % (11.6-14.6); RBC Distribution Width SD 49.3 fl (35.1-43.9); Red Blood Count 4.24 M/mm3 (4.2-5.4)
[2018-08-26 13:05] LABS: POSITIVE COUNT NO; POSITIVE DIFFERENTIAL NO; POSITIVE MORPHOLOGY NO
[2018-08-26 13:19] LABS: ALB/GLOB Ratio 0.7 RATIO (0.9-2.4); AST(SGOT) 17 U/L (15-37); Alanine Aminotransfer ALT/SGPT 12 U/L (13-56); Albumin, Serum 2.9 g/dL (3.2-5.0); Alkaline Phosphatase 70 U/L (45-117); Anion Gap 8 (5-15); BUN 17 mg/dL (7-18); BUN/Creat Ratio 23.7 RATIO (10-20); Calcium,Total 9.1 mg/dL (8.5-10.1); Chloride 108 mmol/L (98-107); Cholesterol 205 mg/dL (200); Creatinine, Serum 0.72 mg/dL (0.55-1.02); EST Glomerular Filtration Rate 84 mL/min (>60); Est Glom Filt Rate - Afr Amer 102 mL/min (>60); Globulin 4.4 g/dL (2.2-4.2); Glucose 88 mg/dL (74-106); High Density Lipoprotein 50 mg/dL; Potassium 3.8 mmol/L (3.5-5.1); Protein, Total 7.3 g/dL (6.4-8.2); Sodium Level 144 mmol/L (136-145); Thyroid Stim Hormone (TSH) 1.37 uIU/mL (0.358-3.74); Triglycerides 81 mg/dL; Very Low Density Lipoprotein 16 mg/dL (5-40)
== END ==
PROVIDERS: Family Provider Family Medicine Geriatric Medicine; PCP Family Medicine Geriatric Medicine; Visit Provider Family Medicine Geriatric Medicine
DX: E55.9 Vitamin D deficiency, unspecified (principal); E78.5 Hyperlipidemia, unspecified; R53.83 Other fatigue
CPT/HCPCS: 36415; 80053; 80061; 82306; 84443; 85025

== ENCOUNTER → 2018-08-31 | Outpatient (CLI) | payer MEDICARE, SELFPAY ==
[2018-03-28 15:32] VITALS: BMI 21.6
--- NOTE | 2018-08-31 11:30 | PET_ITS ---
EXAMINATION: FDG PET BRAIN INDICATIONS: A 78-year-old female with reported history of cognitive impairment, memory loss. COMPARISON EXAMINATION: TECHNIQUE: Following the intravenous administration of 9.64 mCi of F-18 deoxyglucose via the left forearm, multiplanar image acquisitions of the brain obtained at 60 minutes post radiopharmaceutical administration reveal: HEIGHT: 68 inches. WEIGHT: 110 lbs FINDINGS: 1. Qualitative, visual analysis demonstrates significant decreased glucose metabolism manifest in the bilateral frontal, parietal and temporal lobes of the cerebral cortex. There is otherwise relatively symmetric and preserved radiopharmaceutical concentration noted in the remaining cerebral cortical and subcortical structures. 2. Quantitative analysis utilizing TranSiC software demonstrates statistically significant alterations in FDG distribution in the bilateral frontal, temporal and parietal lobes of the cerebral cortex. The maximum altered Z-scores are noted to be -5.38 involving the right orbital frontal cortex, -6.02 involving the left inferior parietal cortex, -4.77 involving the right inferior temporal cortex. PET/PET Brain Metabolic Eval IMPRESSION: 1. Multifocal decreased glucose metabolism manifest in the bilateral parietal, frontal and temporal lobes of the cerebral cortex is most commensurate with cholinergic dysfunction, which may be attributed to dementia, Alzheimer type (Travis and Linda, Molecular Imaging and Biology 4:239, 2004). Electronic Signature Larry Vences D.O. Electronically Signed: Larry Vences DO at 20:24 EDT Tel , Service support ,
== END | disposition home or self-care (01) ==
PROVIDERS: Family Provider Family Medicine Geriatric Medicine; PCP Family Medicine Geriatric Medicine; Referring Provider Family Medicine Geriatric Medicine; Visit Provider Family Medicine Geriatric Medicine
DX: G30.9 Alzheimer's disease, unspecified (principal)
CPT/HCPCS: 78608; A9552

== ENCOUNTER → 2018-09-03 | Outpatient (CLI) | payer MEDICARE, SELFPAY ==
[2018-03-28 15:32] VITALS: BMI 21.6
--- NOTE | 2018-09-03 13:17 | RAD_ITS ---
STUDY: X-RAY - ABDOMEN/PELVIS REASON FOR EXAM: Female, 78 years old. Abdominal pain and constipation. TECHNIQUE: AP supine and upright views of the abdomen and pelvis. COMPARISON: Comparison is made with prior study dated August 11, 2018. FINDINGS: Elevation of the right hemidiaphragm. The lung bases are clear. There is a moderate amount of colonic fecal material. There is no demonstrated free abdominal air. The visualized liver, spleen and kidneys are grossly normal in size and morphology. Normal soft tissue structures. Status post left hip replacement. Marked degree of osteoarthritis involving the right hip joint. RAD/Abd Inc Decub and/or Erect IMPRESSION: Moderate amount of fecal material is seen in the colon. Electronically Signed: Antonio Farmer, at 14:41 EDT , Service support ,
== END | disposition home or self-care (01) ==
LOC: RAD 13:14
PROVIDERS: Family Provider Family Medicine Geriatric Medicine; PCP Family Medicine Geriatric Medicine; Referring Provider Family Medicine Geriatric Medicine; Visit Provider Family Medicine Geriatric Medicine
DX: R19.7 Diarrhea, unspecified (principal)
CPT/HCPCS: 74019

== ENCOUNTER → 2018-09-07 13:53 | Outpatient (CLI) | payer MEDICARE, SELFPAY ==
[2018-03-28 15:32] VITALS: BMI 21.6
== END ==
PROVIDERS: Family Provider Family Medicine Geriatric Medicine; PCP Family Medicine Geriatric Medicine; Visit Provider Family Medicine Geriatric Medicine
DX: R19.7 Diarrhea, unspecified (principal)
CPT/HCPCS: 87493

== ENCOUNTER → 2018-09-18 11:26 | Outpatient (CLI) | payer MEDICARE, SELFPAY ==
[2018-03-28 15:32] VITALS: BMI 21.6
--- NOTE | 2018-09-18 11:34 | RAD_ITS ---
STUDY: X-RAY - LUMBAR SPINE REASON FOR EXAM: Female, 78 years old. Trauma, low back pain TECHNIQUE: 3 view(s) of the lumbar spine were obtained. COMPARISON: Prior study of May 20, 2018 FINDINGS: Normal lumbar lordosis. There is no substantial scoliosis. There is a normal alignment of the vertebrae. There is multilevel endplate spondylosis of the lumbar vertebrae. There is multi-level degenerative disc disease with multi-level disc space narrowing. There is no demonstrated fracture. The soft tissue structures are unremarkable. RAD/Lumbar Spine 2 or 3 Views IMPRESSION: Degenerative changes of the spine, as detailed above. Findings are similar to the previous study. There is no evidence of acute fracture. Electronically Signed: Moreno Dominguez MD at 17:36 EDT , Service support ,
--- NOTE | 2018-09-18 11:40 | RAD_ITS ---
STUDY: X-RAY - ABDOMEN/PELVIS REASON FOR EXAM: Female, 78 years old. Abdominal pain TECHNIQUE: AP supine and upright views of the abdomen and pelvis. COMPARISON: Previous study of 09/03/2018 FINDINGS: Normal visualized lung bases. There is an unremarkable bowel gas pattern. There is no demonstrated free abdominal air. The visualized liver, spleen and kidneys are grossly normal in size and morphology. Normal soft tissue structures. There are severe arthritic changes of the right hip. Status post total left hip replacement changes are noted. RAD/Abd Inc Decub and/or Erect IMPRESSION: No evidence of ileus, obstruction, or free intraperitoneal air. Severe degenerative changes of the right hip. Status post total left hip replacement changes. Electronically Signed: Moreno oDminguez MD at 17:34 EDT , Service support ,
== END ==
PROVIDERS: Family Provider Family Medicine Geriatric Medicine; PCP Family Medicine Geriatric Medicine; Referring Provider Family Medicine Geriatric Medicine; Visit Provider Family Medicine Geriatric Medicine
DX: N39.0 Urinary tract infection, site not specified (principal); M54.5 Low back pain; R10.9 Unspecified abdominal pain
CPT/HCPCS: 72100; 74019; 87086; 87088

== ENCOUNTER → 2018-09-24 12:04 | Outpatient (CLI) | payer MEDICARE, SELFPAY ==
[2018-03-28 15:32] VITALS: BMI 21.6
[2018-09-24 12:49] LABS: Absolute Lymphocyte Count 2.39 X10^3/ul (0.83-4.51); Absolute Neutrophil Count 4.5 X10^3/uL (2.0-7.7); Basophil# 0.01 X10^3/uL; Basophil% 0.1 % (0-1); Eosinophil# 0.04 X10^3/uL; Eosinophils% 0.5 % (0-5); Hematocrit 44.9 % (37-47); Hemoglobin 14.6 g/dl (12.0-15.0); Lymphocyte # 2.39 X10^3/ul (4.0); Lymphocyte % 32.1 % (19-41); Mean Corp Hgb Conc 32.5 g/gl (32-36); Mean Corpuscular Hgb 32.7 pg (27.0-32.0); Mean Corpuscular Volume 100.4 fL (81-99); Mean Platelet Vol. 11.2 fl (6.2-12.0); Monocyte# 0.49 X10^3/uL; Monocyte% 6.6 % (0-10); Neutrophil % 60.4 % (47-70); Platelet Count 253 K/mm3 (150-450); RBC Distribution Width CV 13.9 % (11.6-14.6); RBC Distribution Width SD 51.5 fl (35.1-43.9); Red Blood Count 4.47 M/mm3 (4.2-5.4); White Blood Count 7.5 K/mm3 (4.4-11.0)
[2018-09-24 12:52] LABS: POSITIVE COUNT NO; POSITIVE DIFFERENTIAL NO; POSITIVE MORPHOLOGY NO
[2018-09-24 13:15] LABS: ALB/GLOB Ratio 0.8 RATIO (0.9-2.4); AST(SGOT) 19 U/L (15-37); Alanine Aminotransfer ALT/SGPT 17 U/L (13-56); Albumin, Serum 3.4 g/dL (3.2-5.0); Alkaline Phosphatase 86 U/L (45-117); Anion Gap 6 (5-15); BUN 19 mg/dL (7-18); BUN/Creat Ratio 27.1 RATIO (10-20); CPK Total, Creatine Kinase 64 U/L (26-192); Calcium,Total 9.4 mg/dL (8.5-10.1); Chloride 110 mmol/L (98-107); EST Glomerular Filtration Rate 86 mL/min (>60); Est Glom Filt Rate - Afr Amer 105 mL/min (>60); Globulin 4.2 g/dL (2.2-4.2); Glucose 84 mg/dL (74-106); Potassium 3.8 mmol/L (3.5-5.1); Protein, Total 7.6 g/dL (6.4-8.2); Sodium Level 137 mmol/L (136-145)
[2018-09-25 11:16] LABS: Myoglobin, Serum < 21 ng/mL (25-58)
== END ==
LOC: POLAB3 12:04 → RAD 14:09
PROVIDERS: Family Provider Family Medicine Geriatric Medicine; PCP Family Medicine Geriatric Medicine; Referring Provider Family Medicine Geriatric Medicine; Visit Provider Family Medicine Geriatric Medicine
DX: R10.9 Unspecified abdominal pain (principal); R07.9 Chest pain, unspecified
CPT/HCPCS: 36415; 80053; 82550; 83874; 84484; 85025

== ENCOUNTER → 2018-09-24 14:10 | Outpatient (CLI) | payer MEDICARE, SELFPAY ==
[2018-03-28 15:32] VITALS: BMI 21.6
--- NOTE | 2018-09-24 14:13 | RAD_ITS ---
STUDY: X-RAY - ABDOMEN/PELVIS REASON FOR EXAM: Female, 78 years old. TECHNIQUE: COMPARISON: None. FINDINGS: Normal visualized lung bases. There is an unremarkable bowel gas pattern. There is no demonstrated free abdominal air. The visualized liver, spleen and kidneys are grossly normal in size and morphology. Normal soft tissue structures. No abnormal calcification. There is osteoarthritis seen in the right hip. Underlying AVN cannot be ruled out. There is a total hip prosthesis on the left. RAD/Abdomen Single View IMPRESSION: Negative study of the abdomen Electronically Signed: Den Nicholson, at 15:07 EDT Tel , Service support ,
--- NOTE | 2018-09-24 14:13 | RAD_ITS ---
STUDY: X-RAY CHEST REASON FOR EXAM: Female, 78 years old. TECHNIQUE: 2 views COMPARISON: May 07, 2018 FINDINGS Frontal study is somewhat rotated. However the heart is not enlarged. The lung bustamante are clear. No pleural effusion or pneumothorax. The Examination is unchanged since the last study. . RAD/Chest PA and Lateral IMPRESSION: No active intrathoracic disease and changed since May 07, 2018. Electronically Signed: Den Nicholson, at 15:05 EDT Tel , Service support ,
== END ==
PROVIDERS: Family Provider Family Medicine Geriatric Medicine; PCP Family Medicine Geriatric Medicine; Referring Provider Family Medicine Geriatric Medicine; Visit Provider Family Medicine Geriatric Medicine
DX: R47.02 Dysphasia (principal); R07.9 Chest pain, unspecified; R10.9 Unspecified abdominal pain
CPT/HCPCS: 36415; 71046; 74018; 80053; 82550; 83874; 84484; 85025

== ENCOUNTER → 2018-09-25 11:15 | Outpatient (CLI) | payer MEDICARE, SELFPAY ==
[2018-03-28 15:32] VITALS: BMI 21.6
[2018-09-25 12:39] LABS: CPK Total, Creatine Kinase 74 U/L (26-192)
[2018-09-27 14:10] LABS: Myoglobin, Serum < 21 ng/mL (25-58)
== END ==
PROVIDERS: Family Provider Family Medicine Geriatric Medicine; PCP Family Medicine Geriatric Medicine; Visit Provider Family Medicine Geriatric Medicine
DX: R07.9 Chest pain, unspecified (principal)
CPT/HCPCS: 36415; 82550; 83874; 84484

== ENCOUNTER 2018-10-14 21:45 | Emergency (ER) | payer MEDICARE, SELFPAY ==
[2018-03-28 15:32] VITALS: BMI 21.6
[2018-10-14 21:47] VITALS: BP 146/69; PULSE 80; RESP 22; TEMP 36.4; O2SAT 98; BMI 19.3
--- NOTE | 2018-10-14 22:01 | EKG12_ITS ---
Test Reason : GEN ILLNESS Blood Pressure : / mmHG Vent. Rate : 070 BPM Atrial Rate : 075 BPM P-R Int : 000 ms QRS Dur : 074 ms QT Int : 390 ms P-R-T Axes : 000 -21 046 degrees QTc Int : 421 ms Accelerated Junctional rhythm Abnormal ECG Confirmed by MICH FLORES, MILTON ([id number]), map editor STEFANIE RAE ([id number]) on 10/19/2018 12:22:23 PM Referred By: MARIAN Confirmed By:MILTON EPPS MD
[2018-10-14 22:15] VITALS: PULSE 81; RESP 18; O2SAT 94
[2018-10-14] MEDS: Ipratropium/Albuterol Sulfate 3 ML AMPUL.NEB INHALATION (22:15)
[2018-10-14] MEDS: 0.9% Normal Saline 1,000 ML 150 ML IV (22:40)
[2018-10-14 22:41] VITALS: PULSE 76
[2018-10-14 22:43] LABS: Absolute Neutrophil Count 5.3 X10^3/uL (2.0-7.7); Basophil# 0.03 X10^3/uL; Basophil% 0.3 % (0-1); Eosinophil# 0.02 X10^3/uL; Eosinophils% 0.2 % (0-5); Hematocrit 39.9 % (37-47); Hemoglobin 12.9 g/dL (12.0-15.0); Lymphocyte % 28.9 % (19-41); Mean Corp Hgb Conc 32.3 g/dL (32-36); Mean Corpuscular Hgb 32.8 pg (27.0-32.0); Mean Corpuscular Volume 101.5 fL (81-99); Mean Platelet Vol. 11.5 fl (6.2-12.0); Monocyte# 1.01 X10^3/uL; Monocyte% 11.2 % (0-10); NRBC Flagged by Analyzer 0 % (0-5); Neutrophil # 5.32 X10^3/uL (2.7-7.7); Neutrophil % 59.1 % (47-70); Platelet Count 165 K/mm3 (150-450); RBC Distribution Width CV 13.2 % (11.6-14.6); RBC Distribution Width SD 49.3 fl (35.1-43.9); Red Blood Count 3.93 M/mm3 (4.2-5.4)
--- NOTE | 2018-10-14 22:50 | RAD_ITS ---
STUDY: X-RAY CHEST REASON FOR EXAM: Female, 78 years old. Question aspiration. TECHNIQUE: Frontal and lateral views of the chest. COMPARISON: 09/24/2018. FINDINGS: The lungs are clear and expanded. No infiltrates. No effusions. There is no demonstrated pleural abnormality. Normal size heart. Normal mediastinum and jose. Normal visualized pulmonary arteries. Normal visualized aortic arch and descending thoracic aorta. Normal visualized thoracic spine. Normal visualized ribs, clavicles, and shoulders. There is no demonstrated abnormality of the visualized soft tissue structures of the upper abdomen. RAD/Chest PA and Lateral IMPRESSION: No evidence for acute chest disease. Electronically Signed: Earnest Griffin MD at 23:13 EDT , Service support ,
[2018-10-14 23:00] LABS: Anion Gap 4 (5-15); BUN 20 mg/dL (7-18); BUN/Creat Ratio 33.1 RATIO (10-20); Calcium,Total 9.1 mg/dL (8.5-10.1); Chloride 110 mmol/L (98-107); EST Glomerular Filtration Rate 102 mL/min (>60); Est Glom Filt Rate - Afr Amer 124 mL/min (>60); Estimated Creatinine Clearance 37.36 ml/min; Glucose 90 mg/dL (74-106); Potassium 3.9 mmol/L (3.5-5.1); Sodium Level 141 mmol/L (136-145)
--- NOTE | 2018-10-14 23:04 | CT_ITS ---
STUDY: CT SOFT TISSUE NECK WITH CONTRAST REASON FOR EXAM: Female, 78 years old. Throat pain. Aspiration. RADIATION DOSAGE (If Supplied By Facility): CTDIvol = ( 8.80 ) mGy, DLP = ( 208.73 ) mGycm TECHNIQUE: The patient was scanned in a multi-detector CT scanner. High resolution transaxial imaging was performed following intravenous administration of 75 IV Isovue 370. Sagittal and coronal images were reconstructed. Individualized dose optimization techniques were used for this CT. COMPARISON: Swallowing study April 02, 2018. Chest x-ray October 14, 2018. FINDINGS: Normal bilateral parotid glands. Normal bilateral career placement services counselor spaces. Normal bilateral parapharyngeal spaces. Normal bilateral carotid spaces. Normal bilateral sublingual and submandibular glands and spaces. Normal visualized nasopharynx. Normal retropharyngeal space. Normal perivertebral space. Normal visualized bilateral faucial tonsils. The visualized tongue, tongue base and oropharynx are normal. The visualized cervical lymph nodes (levels I-) are within normal size limits, and maintain normal morphology. There is no demonstrated solid or cystic mass lesion. There is no abnormal contrast enhancement. Normal epiglottis, bilateral vallecula and hypopharynx. The pre-epiglottic and paraglottic adipose spaces are normal. Normal visualized bilateral piriform sinuses, aryepiglottic folds, vocal cords, and arytenoid-cricoid articulations. Normal subglottic trachea. Normal bilateral lobes of the thyroid gland. 0.9 cm pulmonary cyst left upper lobe. Normal visualized paranasal sinuses. Disc space narrowing of the cervical spine at multiple levels with small marginal osteophytes. CT/Soft Tissue Neck WITH Contrast IMPRESSION: No acute findings on CT of the soft tissue neck. Degenerative changes of the cervical spine. Left upper lobe pulmonary cyst which is an incidental finding. Electronically Signed: Sterling Willard MD at 1:00 EDT , Service support ,
[2018-10-14 23:05] LABS: Lactic Acid 1.1 mmol/L (0.4-2.0)
[2018-10-14 23:14] LABS: BNP,B-Type NATRIURETIC PEPTIDE 87.9 pg/mL (0-100)
--- NOTE | 2018-10-14 23:29 | ED.DCSUM_ITS ---
- ER Visit Summary Date of Service: 10/14/18 Chief Complaint: [Concern for aspiration pneumonia] History of Present Illness: The patient is a 78 F [the emergency department with abnormal breathing today. Caregiver noted that patient had some gurgling breath sounds that she noticed around 2 PM today. Patient has had history of aspiration pneumonia in the past. Patient has history of Alzheimer's dementia and is a poor historian. She does complain of a sore throat. She has not had fever or recent illness. Patient denies any chest pain. Patient also with history of CHF as well as thrombus cytopenia and chronic kidney disease.] Physical Examination: [HEENT-PERRLA, EOMI. Cranial nerves II through XII grossly intact. TMs clear. Mucous membranes moist. No adenopathy. No pharyngeal erythema. No angioedema noted. Uvula midline. No trismus. Cardiovascular-regular rate and rhythm without murmur or ectopy Lungs-breath sounds bilaterally and some rhonchi noted. No real tachypnea. No accessory muscle use or retractions. Abdomen-normoactive bowel sounds, soft, nontender, no rebound or rigidity, no peritoneal signs. Extremities-intact ?4, normal range of motion, normal pulses, atraumatic] Test Results: [CBC with differential obtained showed a white count of 9.0, hemoglobin 12.9, hematocrit 40, platelet 65. Chemistries unremarkable. EKG obtained showed a sinus rhythm with a ventricular rate of 70 bpm. Troponin is less than 0.15. Lactate was normal at 1.1. Strep screen was negative. Chest x-ray showed nothing acute. CT scan of the soft tissue neck ordered] Emergency Department Course and Treatment: [] Treatment Plan: [Patient will be turned over to evening physician awaiting results of CT scan. I feel that CT scan of the neck is unremarkable that she can be safely discharged to home with close follow-up with primary care physician within next 3 to 5 days. Patient will be advised to return if increasing shortness of breath, fever, or condition should worsen anyway.] Disposition: [Pending] Impression: [Pharyngitis ] This note was generated with [employer] dictation software. It may contain incorrect words, spelling, and punctuation that were not noted in review of the chart prior to signing <Denise Huerta - Last Filed: 10/15/18 00:05> - ER Visit Summary Date of Service: 10/15/18 Patient was signed out to me pending CT scan of the soft tissue neck. CT returns with no acute findings. Test results are discussed with patient and family at bedside. Vital signs remained stable throughout her ED stay. She will be discharged with her family and does have an appointment with her PCP later today. Disposition: Discharge Impression: Pharyngitis This note was generated with [employer] dictation software. It may contain incorrect words, spelling, and punctuation that were not noted in review of the chart prior to signing <Sosa Macdonald - Last Filed: 10/15/18 01:09> ED Disposition <Denise Huerta - Last Filed: 10/15/18 00:05> <Sosa Macdonald - Last Filed: 10/15/18 01:09> - Plan for ED Patient: Disposition: Home or Assisted Living Instructions: PHARYNGITIS, Viral Referrals: Parker Ndiaye Chi, MD [Primary Care Provider] - Keep Shital appointment
[2018-10-14 23:53] VITALS: BP 139/62; PULSE 82; RESP 18; TEMP 36.7; O2SAT 96
[2018-10-15 00:32] VITALS: BP 120/79; PULSE 76; RESP 18; O2SAT 98
[2018-10-15 00:36] VITALS: BP 120/79; PULSE 76; RESP 18; TEMP 36.7; O2SAT 98
[2018-10-15 01:12] VITALS: BP 158/76; PULSE 91; RESP 18; O2SAT 98
== END 2018-10-15 01:14 | disposition home or self-care (01) ==
PROVIDERS: Emergency Provider Emergency Medicine; Family Provider Family Medicine Geriatric Medicine; PCP Family Medicine Geriatric Medicine
DX: J02.9 Acute pharyngitis, unspecified (principal); G30.9 Alzheimer's disease, unspecified; F02.80 Dementia in other diseases classified elsewhere, unspecified severity, without behavioral disturbance, psychotic disturbance, mood disturbance, and anxiety; R06.00 Dyspnea, unspecified; R05 Cough
CPT/HCPCS: 36415; 70491; 71046; 80048; 83605; 83880; 84484; 85025; 87040; 87880; 93005; 94640; 96360; 96361; 99285; J7030; Q9967; A4216